=== PATIENT | female | born 1955 | race Caucasian/White ===

== ENCOUNTER → 2016-12-30 | Outpatient (REF) | payer OTHER ==
[~2016-12-30] MED LIST: ALBU17IN INH; ALEV220C2 PO; BENA25CA2 PO; FISH1000 PO; OCUVTAB PO; OMEP40CA2 PO; ZYRT10CA PO
[2016-12-30 11:42] LABS: BASO % 0.5 % (0.0-1.0); EOS # 0.2 K/mm3 (0.0-0.50); EOS % 2.7 % (0.0-3.0); LARGE UNSTAINED CELL # 0.2 K/mm3 (0.0-0.4); LARGE UNSTAINED CELL % 2.7 % (0.0-4.0); LYMPH # 2.2 K/mm3 (1.5-4.5); LYMPH % 32.7 % (24.0-44.0); MEAN CORPUSCULAR HEMOGLOBIN 28.2 pg (27.0-33.0); MEAN CORPUSCULAR HGB CONC 32.2 g/dl (32.0-36.5); MEAN CORPUSCULAR VOLUME 87.5 fl (80.0-96.0); MONO # 0.4 K/mm3 (0.0-0.8); MONO % 5.4 % (0.0-5.0); NEUTROPHILS # 3.8 K/mm3 (1.8-7.7); PLATELET COUNT, AUTOMATED 275 k/mm3 (150-450); RED CELL DISTRIBUTION WIDTH 14.2 % (11.5-14.5); WHITE BLOOD COUNT 6.8 K/mm3 (4.0-10.0)
[2016-12-30 12:25] LABS: ALBUMIN 3.7 GM/DL (3.2-5.2); ALBUMIN/GLOBULIN RATIO 1.16 (1.00-1.93); ALKALINE PHOSPHATASE 99 U/L (45-117); ALT/SGPT 38 U/L (12-78); ANION GAP 9 MEQ/L (8-16); AST/SGOT 30 U/L (15-37); BILIRUBIN,TOTAL 0.4 MG/DL (0.2-1.0); BLOOD UREA NITROGEN 19 MG/DL (7-18); CALCIUM LEVEL 9.1 MG/DL (8.5-10.1); CARBON DIOXIDE LEVEL 30 MEQ/L (21-32); CHLORIDE LEVEL 107 MEQ/L (98-107); CREATININE FOR GFR 0.68 MG/DL (0.55-1.02); GLOMERULAR FILTRATION RATE > 60.0 (>51); GLUCOSE, FASTING 98 MG/DL (70-105); POTASSIUM SERUM 4.4 MEQ/L (3.5-5.1); SODIUM LEVEL 146 MEQ/L (136-145); TOTAL PROTEIN 6.9 GM/DL (6.4-8.2)
== END ==
LOC: M SFHCPLAZ 08:38
PROVIDERS: ATTEND Family Medicine
DX: R53.83 Other fatigue (principal); R60.0 Localized edema; R06.02 Shortness of breath

== ENCOUNTER → 2017-01-31 | Outpatient (REF) | payer OTHER ==
[2017-01-31 16:07] LABS: MEAN CORPUSCULAR HEMOGLOBIN 29.2 pg (27.0-33.0); MEAN CORPUSCULAR HGB CONC 33.4 g/dl (32.0-36.5); MEAN CORPUSCULAR VOLUME 87.6 fl (80.0-96.0); WHITE BLOOD COUNT 7.5 K/mm3 (4.0-10.0)
[2017-01-31 16:08] LABS: RED CELL DISTRIBUTION WIDTH 13.7 % (11.5-14.5)
[2017-01-31 16:24] LABS: ERYTHROCYTE SEDIMENTATION RATE 20 mm/hr (0-30)
[2017-01-31 17:42] LABS: BASOPHILS 1 % (0-4); EOSINOPHILS 2 % (0-5)
== END ==
LOC: M LABDRAW1 15:23
PROVIDERS: ATTEND Physician Assistant
DX: M70.41 Prepatellar bursitis, right knee (principal)

== ENCOUNTER → 2017-03-01 | Outpatient (CLI) | payer OTHER ==
[2017-03-01 14:25] LABS: MICROSCOPIC INDICATED? MAN YES (NO)
[2017-03-01 14:28] LABS: BACTERIA, URINE MOD AMOUNT; HYALINE CAST, URINE NONE SEEN /lpf (0-1); MICROSCOPIC EXAM PERFORMED; SQUAMOUS EPITHELIAL CELL URINE SMALL AMOUNT /hpf (SMALL AMT); WBC, URINE 40-50 /hpf (0-3)
[2017-03-01 14:44] LABS: ALBUMIN 4.1 GM/DL (3.2-5.2); ANION GAP 7 MEQ/L (8-16); BLOOD UREA NITROGEN 19 MG/DL (7-18); CALCIUM LEVEL 8.9 MG/DL (8.5-10.1); CARBON DIOXIDE LEVEL 32 MEQ/L (21-32); CHLORIDE LEVEL 102 MEQ/L (98-107); CREATININE FOR GFR 0.67 MG/DL (0.55-1.02); FERRITIN 66 NG/ML (8-252); GLOMERULAR FILTRATION RATE > 60.0 (>51); GLUCOSE, FASTING 99 MG/DL (70-105); MAGNESIUM LEVEL 2.1 MG/DL (1.8-2.4); PHOSPHORUS LEVEL 2.9 MG/DL (2.5-4.9); POTASSIUM SERUM 4.4 MEQ/L (3.5-5.1); SODIUM LEVEL 141 MEQ/L (136-145)
--- NOTE | 2017-03-02 02:46 | REP ---
Clinical: Heart failure . Comparison: 11/07/2008 . Technique: PA and lateral. Findings: The mediastinum and cardiac silhouette are stable/normal. The lung euceda are clear and without acute consolidation, effusion, or pneumothorax. The skeletal structures are intact and normal. Impression: 1. No acute cardiopulmonary process. Signed by Franklyn Gaffney MD 03/02/2017 02:37 A
== END ==
LOC: M LAB 13:30
PROVIDERS: ATTEND Internal Medicine Cardiovascular Disease
DX: I50.9 Heart failure, unspecified (principal); R03.0 Elevated blood-pressure reading, without diagnosis of hypertension

== ENCOUNTER → 2017-04-07 | Outpatient (CLI) | payer OTHER | LOC: M SLEEP 19:58 | PROVIDERS: ATTEND Nurse Practitioner Adult Health | DX: G47.30 Sleep apnea, unspecified (principal) ==

== ENCOUNTER → 2017-08-03 | Outpatient (CLI) | payer OTHER ==
[~2017-08-03] MED LIST changes: +AUGM875T28 PO; +FURO40TA2 PO; +POTA20TA6 PO
--- NOTE | 2017-08-03 13:32 | REPMRS ---
Patient History The patient states she has not had a clinical breast exam in over a year. Patient is postmenopausal. Family history of breast cancer in sister under age 50, breast cancer in paternal aunt at age 50 or over, and breast cancer in 3 paternal cousins under age 50. Digital Woman Screen Mammo: August 03, 2017 - Exam #: [id number] Bilateral CC and MLO view(s) were taken. Technologist: Emma Streeter, Technologist Prior study comparison: February 27, 2015, digital woman screen mammo performed at [facility] [employer]. February 19, 2014, digital woman screen mammo performed at [facility] [employer] [facility]. FINDINGS: There are scattered fibroglandular densities. There has been no change in the appearance of the mammogram from the prior studies. There is a mild amount of residual fibroglandular tissue which is fairly symmetric. There is no interval development of dominant mass, architectural distortion, or clustered microcalcification suggestive of malignancy. ASSESSMENT: BI-RADS/ACR category 1 mammogram. Negative. Recommendation Routine screening mammogram in 1 year (for women over age 40). This mammogram was interpreted with the aid of an FDA-approved computer-aided dectection system. Electronically Signed By: Diego Joe MD 08/03/17 [id number]
== END ==
LOC: M WHC 11:30
PROVIDERS: ATTEND Family Medicine
DX: Z12.31 Encounter for screening mammogram for malignant neoplasm of breast (principal)

== ENCOUNTER 2017-08-05 09:34 | Emergency (ER) | payer OTHER ==
[~2017-08-05] VITALS: Ht 160 cm; Wt 155.4 kg
[~2017-08-05 09:34] MED LIST changes: -AUGM875T28 PO; -FURO40TA2 PO; -POTA20TA6 PO
[2017-08-05 09:35] VITALS: BP 142/62
[2017-08-05] MEDS ORDERED: AUGM875T28 PO (09:42)
[2017-08-05] MEDS ORDERED: POTA20TA6 PO (09:42)
[2017-08-05] MEDS ORDERED: FURO40TA2 PO (09:42)
== END 2017-08-05 10:20 | disposition home or self-care (01) ==
LOC: M ED 09:34
DX: L97.929 Non-pressure chronic ulcer of unspecified part of left lower leg with unspecified severity (principal); I87.2 Venous insufficiency (chronic) (peripheral); S80.812D Abrasion, left lower leg, subsequent encounter; W55.03XD Scratched by cat, subsequent encounter; Y92.9 Unspecified place or not applicable; Y93.9 Activity, unspecified; Y99.9 Unspecified external cause status; J45.909 Unspecified asthma, uncomplicated; Z79.899 Other long term (current) drug therapy; Z91.013 Allergy to seafood; Z88.1 Allergy status to other antibiotic agents

== ENCOUNTER → 2017-08-09 | Outpatient (REF) | payer OTHER ==
[~2017-08-09] MED LIST changes: +AUGM875T28 PO; +FURO40TA2 PO; +POTA20TA6 PO
[2017-08-09 16:03] LABS: ANION GAP 8 MEQ/L (8-16); BLOOD UREA NITROGEN 21 MG/DL (7-18); CALCIUM LEVEL 9.8 MG/DL (8.8-10.2); CARBON DIOXIDE LEVEL 33 MEQ/L (21-32); CHLORIDE LEVEL 98 MEQ/L (98-107); CREATININE FOR GFR 0.89 MG/DL (0.55-1.02); GLOMERULAR FILTRATION RATE > 60.0 (>45); GLUCOSE, FASTING 90 MG/DL (80-110); POTASSIUM SERUM 4.1 MEQ/L (3.5-5.1); SODIUM LEVEL 139 MEQ/L (136-145)
== END ==
LOC: M SFHCPLAZ 12:35
PROVIDERS: ATTEND Family Medicine
DX: M79.89 Other specified soft tissue disorders (principal)

== ENCOUNTER → 2017-08-18 | Outpatient (REF) | payer OTHER ==
[2017-08-18 13:39] LABS: ANION GAP 6 MEQ/L (8-16); BLOOD UREA NITROGEN 16 MG/DL (7-18); CALCIUM LEVEL 9.5 MG/DL (8.8-10.2); CARBON DIOXIDE LEVEL 33 MEQ/L (21-32); CHLORIDE LEVEL 104 MEQ/L (98-107); CREATININE FOR GFR 0.77 MG/DL (0.55-1.02); GLOMERULAR FILTRATION RATE > 60.0 (>45); GLUCOSE, FASTING 86 MG/DL (80-110); POTASSIUM SERUM 4.4 MEQ/L (3.5-5.1); SODIUM LEVEL 143 MEQ/L (136-145)
== END ==
LOC: M SFHCPLAZ 12:22
PROVIDERS: ATTEND Family Medicine
DX: M79.89 Other specified soft tissue disorders (principal)

== ENCOUNTER → 2017-08-24 | Outpatient (CLI) | payer OTHER ==
--- NOTE | 2017-08-25 06:09 | REP ---
Clinical: Right lower extremity venous insufficiency. Technique: Joe scale and color Doppler evaluation using linear high frequency transducer including reflux evaluation. Findings: Ultrasound examination of the right lower extremity deep venous structures from the common femoral vein to the popliteal vein demonstrates normal compressibility flow and wave patterns in response to respiration and augmentation. There is no evidence for deep venous thrombosis. Reflux study demonstrates no reflux through the deep venous system and no reflux through the superficial venous system including the greater saphenous and lesser saphenous veins. Impression: No evidence for deep venous thrombosis. No evidence for right lower extremity reflux involving the deep system, greater saphenous or lesser saphenous veins. Signed by Franklyn Gaffney MD 08/25/2017 06:01 A
== END ==
LOC: M RAD 13:43
PROVIDERS: ATTEND Family Medicine
DX: L97.921 Non-pressure chronic ulcer of unspecified part of left lower leg limited to breakdown of skin (principal); M79.89 Other specified soft tissue disorders

== ENCOUNTER → 2017-08-25 | Outpatient (CLI) | payer OTHER ==
--- NOTE | 2017-08-25 11:28 | REP ---
LEFT LOWER EXTREMITY DUPLEX DOPPLER VENOUS ULTRASOUND WITH EVALUATION FOR VENOUS REFLUX: Real-time compression and duplex Doppler interrogation of the left lower extremity deep venous system is performed. Left common femoral, superficial femoral, and popliteal veins are fully compressible with transducer pressure and demonstrate normal spontaneous and phasic flow without evidence of deep venous thrombosis. Evaluation for venous reflux demonstrates no reflux in any of the deep veins. There is an anterior accessory greater saphenous vein present without reflux. There is no reflux in any portion of the greater saphenous vein, with a diameter in the proximal thigh 6 mm, mid thigh 4 mm and at the knee 4 mm. There is no reflux in the less saphenous vein which measures 3 mm. Less saphenous vein drains into the deep system in the posterior thigh. Signed by Diego Joe MD 08/28/2017 09:48 A
== END ==
LOC: M RAD 09:14
PROVIDERS: ATTEND Family Medicine
DX: L97.921 Non-pressure chronic ulcer of unspecified part of left lower leg limited to breakdown of skin (principal); M79.89 Other specified soft tissue disorders

== ENCOUNTER → 2018-06-22 | Outpatient (REF) | payer OTHER ==
[2018-06-22 11:41] LABS: ALBUMIN 3.5 GM/DL (3.2-5.2); ALBUMIN/GLOBULIN RATIO 0.88 (1.00-1.93); ALKALINE PHOSPHATASE 89 U/L (45-117); ALT/SGPT 31 U/L (12-78); ANION GAP 7 MEQ/L (8-16); AST/SGOT 19 U/L (7-37); BILIRUBIN,TOTAL 0.4 MG/DL (0.2-1.0); BLOOD UREA NITROGEN 21 MG/DL (7-18); CALCIUM LEVEL 9.2 MG/DL (8.8-10.2); CARBON DIOXIDE LEVEL 28 MEQ/L (21-32); CHLORIDE LEVEL 108 MEQ/L (98-107); CREATININE FOR GFR 0.89 MG/DL (0.55-1.30); GLOMERULAR FILTRATION RATE > 60.0 (>45); GLUCOSE, FASTING 123 MG/DL (70-100); POTASSIUM SERUM 4.1 MEQ/L (3.5-5.1); SODIUM LEVEL 143 MEQ/L (136-145); TOTAL PROTEIN 7.5 GM/DL (6.4-8.2)
== END ==
LOC: M SFHCPLAZ 10:02
DX: L97.921 Non-pressure chronic ulcer of unspecified part of left lower leg limited to breakdown of skin (principal)

== ENCOUNTER → 2018-08-06 | Outpatient (REF) | payer OTHER | LOC: M LAB REF 19:26 | DX: L57.0 Actinic keratosis (principal) ==

== ENCOUNTER → 2018-08-31 | Outpatient (CLI) | payer OTHER ==
[2018-08-31 14:03] LABS: ESTIMATED AVERAGE GLUCOSE 140 MG/DL (60-110); HEMOGLOBIN A1c 6.5 %
[2018-08-31 15:24] LABS: CHOLESTEROL LEVEL 163 MG/DL (<200); CHOLESTEROL RISK RATIO 4.289 (<5); HDL CHOLESTEROL 38 MG/DL (>40); LDL CHOLESTEROL 111 MG/DL (<100); NON-HDL-C 125 MG/DL; TRIGLYCERIDES LEVEL 72 MG/DL (<150)
== END ==
LOC: M ADAMS 08:00
DX: Z13.1 Encounter for screening for diabetes mellitus (principal); Z13.220 Encounter for screening for lipoid disorders
CPT/HCPCS: 83036

== ENCOUNTER → 2018-09-05 | Outpatient (REF) | payer OTHER ==
[2018-09-05 14:38] LABS: ALBUMIN 3.6 GM/DL (3.2-5.2); ALBUMIN/GLOBULIN RATIO 0.97 (1.00-1.93); ALKALINE PHOSPHATASE 110 U/L (45-117); ALT/SGPT 30 U/L (12-78); ANION GAP 6 MEQ/L (8-16); AST/SGOT 24 U/L (7-37); BILIRUBIN,TOTAL 0.4 MG/DL (0.2-1.0); BLOOD UREA NITROGEN 19 MG/DL (7-18); CALCIUM LEVEL 8.8 MG/DL (8.8-10.2); CARBON DIOXIDE LEVEL 33 MEQ/L (21-32); CHLORIDE LEVEL 102 MEQ/L (98-107); CREATININE FOR GFR 0.77 MG/DL (0.55-1.30); GLOMERULAR FILTRATION RATE > 60.0 (>45); GLUCOSE, FASTING 86 MG/DL (70-100); POTASSIUM SERUM 4.5 MEQ/L (3.5-5.1); SODIUM LEVEL 141 MEQ/L (136-145); TOTAL PROTEIN 7.3 GM/DL (6.4-8.2)
== END ==
LOC: M SFHCPLAZ 11:03
DX: Z01.818 Encounter for other preprocedural examination (principal)
CPT/HCPCS: 80053

== ENCOUNTER 2019-01-21 12:41 | Inpatient (IN) | payer OTHER ==
--- NOTE | 2019-01-16 15:30 | HPE ---
DATE OF ADMISSION: 01/21/2019 CHIEF COMPLAINT: Left knee pain. HISTORY OF PRESENT ILLNESS: This is a pleasant, 63-year-old female with progressively worsening left knee pain and stiffness. She has failed to improve with conservative treatment. She has elected for surgery for her continued symptoms. She has pain with weightbearing activities and her activities of daily living. X-rays of her knee are notable for advanced osteoarthritis of the left knee joint. She has consented for a left total knee arthroplasty, by Dr. Logan Sotomayor. Medical optimization was done by Dr. Garcia. ALLERGIES: DOXYCYCLINE. CURRENT MEDICATIONS: - naproxen 500 mg one twice a day - Tylenol 500 mg two every 8 hours - Sulfur topical wash in the a.m. - metronidazole cream in the p.m. - Cetaphil redness face wash twice a day PAST MEDICAL HISTORY: Includes anxiety and acne rosacea. PAST SURGICAL HISTORY: Includes three (C) sections, tonsillectomy, tubal ligation, and carpal tunnel release. SOCIAL HISTORY: This patient is retired. Does not smoke. Does not drink. Family history is noncontributory. REVIEW OF SYSTEMS: This patient denies chest pain, heart palpitations, cough, wheezing, difficulty breathing and shortness of breath. She denies abdominal pain, nausea, vomiting, diarrhea or constipation. She denies recent upper respiratory infection or urinary tract infection symptoms. She does complain of persistent pain in the left knee and pain with weightbearing activities in her left knee. PHYSICAL EXAMINATION: General: She is well-nourished, well-developed, in no acute distress, alert female, who walks with a moderate limp favoring the left lower extremity and uses a single-leg cane. Vital signs: She is 63 inches tall, weighs 240 pounds with a temperature of 97.3, blood pressure 130/52, pulse of 64 and respirations of 18. Neck was supple without adenopathy or jugular venous distension. There were no carotid bruits appreciated upon auscultation. Lungs were clear to auscultation without rales or wheeze throughout. Heart: Regular rate and rhythm. Abdomen: Bowel sounds were present. Extremities: Examination of the knee revealed intact skin. She had decreased range of motion secondary to pain and stiffness. The limbs did display intact sensation to light touch. She does have chronic venous stasis changes. No active wounds. LABORATORY DATA: EKG showed sinus rhythm at 65 beats per minute. Chest x-ray showed no acute cardiopulmonary disease processes. Glucose 90, BUN 17, creatinine 0.7, sodium 140, potassium 4.3. CBC was within normal limits. Sed rate 34. ProTime 14.2, INR 1.09. IMPRESSION: Symptomatic osteoarthritis of the left knee joint. PLAN: Consented for a left total knee arthroplasty by Dr. Logan Sotomayor.
[~2019-01-21] VITALS: Ht 160 cm; Wt 126.6 kg
[~2019-01-21 12:41] MED LIST changes: +BUPIVACAINE LIPOSOME/PF 1.3% 20ML VIAL (13.3MG/ML)(EXPAREL)(C9290 PER1MG) As Ordered ONE; +EPINEPHrine INJ 1 MG/ML 1ML AMP As Ordered ONE; +OMEP20CA3 PO; +TRANEXAMIC ACID 100 MG/ML 10ML VIAL As Ordered ONE; +VENTAER IN; +ceFAZolin 1GM INJ (J0690 PER 500MG) As Ordered ONE
[2019-01-21] MEDS ORDERED: MIDAZOLAM INJ 2 MG/2 ML VIAL (J2250) As Ordered ONE ×2 (13:44→14:08)
[2019-01-21] MEDS ORDERED: PROPOFOL 200 MG/20 ML VIAL As Ordered ONE (13:44)
[2019-01-21] MEDS ORDERED: ONDANSETRON 4MG/2ML VIAL (J2405) As Ordered ONE (13:44)
[2019-01-21] MEDS ORDERED: LIDOCAINE 2% INJ 100 MG/5 ML SDV (FOR ANES.) As Ordered ONE (13:44)
[2019-01-21] MEDS ORDERED: fentaNYL 100 MCG/2 ML INJECTION (J3010) As Ordered ONE ×2 (13:44→14:08)
[2019-01-21] MEDS ORDERED: ceFAZolin 2 GM/D5W 50 ML IV BAG (J0690 PER 500MG) As Ordered ONE (13:58)
[2019-01-21] MEDS ORDERED: ceFAZolin 1GM INJ (J0690 PER 500MG) As Ordered ONE (13:58)
[2019-01-21] MEDS ORDERED: ceFAZolin SOD 1 GM in D5W MINI-BAG PLUS 50 ML IV ONE (14:15)
[2019-01-21] MEDS ORDERED: LR 1,000 ML IV SCH ×3 (14:15→17:30)
[2019-01-21] MEDS ORDERED: PREGABALIN 100 MG CAP (LYRICA) PO ONE (14:30)
[2019-01-21] MEDS ORDERED: PREGABALIN 75 MG CAP(LYRICA) PO ONE (14:30)
[2019-01-21] MEDS ORDERED: ACETAMINOPHEN 500 MG TAB PO ONE (14:30)
[2019-01-21] MEDS ORDERED: CelecoXIB 400 MG CAP PO ONE (14:30)
--- NOTE | 2019-01-21 15:08 | IPN ---
DATE: 01/21/2019 Patient seen and examined. She wished to go ahead with a left knee arthroplasty. She understands the nature of this, the risks of bleeding, infection, damage to nerves, vessels, persistent pain, wear loosening, blood clots, medical problems, , among others. She understands she is at substantially higher risk with her morbid obesity. She also has some chronic venous stasis changes involving her shins, which she has been treated at the wound center and has been given go ahead for surgery she indicates. She does have some chronic redness of her shins. There is no current evidence of any drainage or active infection. This has been present for many years. We plan on proceeding with a left knee arthroplasty. Preop clearance was obtained.
[2019-01-21] MEDS ORDERED: MIDAZOLAM INJ 2 MG/2 ML VIAL (J2250) IV ONE (15:15)
[2019-01-21] MEDS ORDERED: fentaNYL 100 MCG/2 ML INJECTION (J3010) IV ONE (15:15)
[2019-01-21] MEDS ORDERED: BUPIVACAINE/DEXTROSE 0.75% 2 ML AMP As Ordered ONE (15:21)
[2019-01-21] MEDS ORDERED: EPINEPHrine INJ 1 MG/ML 1ML AMP ONE (15:36)
[2019-01-21] MEDS ORDERED: ROPIvacaine 0.5% 30 ML INJECTION (J2795 PER 1MG) ONE (15:36)
[2019-01-21] MEDS ORDERED: dexameTHASONE 10 MG/1 ML VIAL PRES.FREE (J1100) ONE (15:36)
[2019-01-21] MEDS ORDERED: ePHEDrine SULFATE 25 MG/5 ML(5MG/ML) SYRINGE As Ordered ONE ×2 (15:44→16:35)
[2019-01-21] MEDS ORDERED: FLEET ENEMA PR PRN (17:30)
[2019-01-21] MEDS ORDERED: ACETAMINOPHEN TAB 650MG DOSE (2X325MG) PO PRN (17:30)
[2019-01-21] MEDS ORDERED: fentaNYL 100 MCG/2 ML INJECTION (J3010) IV PRN (17:30)
[2019-01-21] MEDS ORDERED: ONDANSETRON 4MG/2ML VIAL (J2405) IV PRN ×2 (17:30)
[2019-01-21] MEDS ORDERED: MORPHINE 4 MG/ML 1ML VIAL/SYRINGE (J2270) IV PRN ×2 (17:30)
[2019-01-21] MEDS ORDERED: PERCOCET 5MG/325MG TAB PO PRN (17:30)
[2019-01-21 18:45] VITALS: BP 140/80
[2019-01-21 19:20] VITALS: BP 140/67
--- NOTE | 2019-01-21 19:31 | REP ---
Left knee: Two views. History: Postop evaluation. Comparison left knee radiographs are from January 17, 2016. Findings: The patient is status post left knee arthroplasty. Femoral, tibial, and patellar components are well aligned with respect to each other and their [place] bones. Periarticular soft tissue emphysema and swelling is noted. Anterior skin elsa are visible. Impression: Status post left knee arthroplasty. Electronically Signed by Chase Lainez MD 01/21/2019 08:58 P
--- NOTE | 2019-01-21 19:37 | CR ---
DATE OF CONSULTATION: 01/21/2019 This is a 63-year-old female who presents to the hospital for a left total knee replacement. She has a past medical history of left osteoarthritis, history of anxiety disorder and acne rosacea. REASON FOR MEDICAL CONSULTATION: Postoperative medical management. The patient had a successful left total knee replacement today. She is pain free at this time. Denies any chest pain, shortness of breath, abdominal pain, nausea, vomiting, vertigo or headache. PAST MEDICAL HISTORY: 1. Anxiety disorder. 2. Acne rosacea. 3. Morbid obesity. PAST SURGICAL HISTORY: 1. Three sections. 2. Tonsillectomy. 3. Tubal ligation. 4. Carpal tunnel release. ALLERGIES: AMOXICILLIN. FAMILY HISTORY: Noncontributory. SOCIAL HISTORY: The patient denies tobacco, alcohol or illicit drugs. MEDICATIONS: She takes at home: - albuterol as needed - Aleve 220 mg by mouth as needed - cetirizine 10 mg by mouth daily - omeprazole 40 mg by mouth daily REVIEW OF SYSTEMS: Negative for all ten major systems except what is mentioned in the history of present illness. PHYSICAL EXAMINATION: VITAL SIGNS: Blood pressure 140/80, heart rate is 70 and regular, respiratory rate 20, temperature 97.1, oxygen saturation 94% on 2 liters nasal cannula. Head is atraumatic, normocephalic. Neck is supple with no jugular venous distention (JVD). Lungs clear to auscultation. S1, S2 audible. No murmurs appreciated. Abdomen is soft. Positive bowel sounds. No pedal edema. Skin: Clean surgical wound. Neurologic examination, the patient is awake, alert and oriented times three. LABORATORIES: No labs for review. IMPRESSION: 1. Left total knee replacement. 2. Gastroesophageal reflux disease (GERD). 3. Anxiety disorder. PLAN: At this time, the patient is medically stable. Apparently, she has became mildly hypoxic and is on 1 liter nasal cannula and saturating 92%. She is comfortable. She might possibly have element of obstructive sleep apnea. Recommend to wean her off oxygen if possible. We will continue following alongside orthopedics.
[2019-01-21 19:45] VITALS: BP 158/74
[2019-01-21 21:00] VITALS: BP 128/62
[2019-01-21] MEDS: ACETAMINOPHEN 500 MG TAB PO SCH (21:32)
[2019-01-21 22:00] VITALS: BP 146/69
[2019-01-21 23:00] VITALS: BP 157/74
[2019-01-22] VITALS (17 sets, daily range): BP systolic 88–145; BP diastolic 46–78
[2019-01-22] MEDS: ceFAZolin SOD 1 GM in D5W MINI-BAG PLUS 50 ML IV SCH ×2 (01:07→11:20)
[2019-01-22] MEDS: ACETAMINOPHEN 500 MG TAB PO SCH (06:00)
[2019-01-22] MEDS ORDERED: PERCOCET 5MG/325MG TAB PO PRN (06:15)
[2019-01-22] MEDS ORDERED: ONDANSETRON 4 MG TAB (S0181) PO PRN (06:15)
[2019-01-22] MEDS ORDERED: XARE10TA PO (06:17)
[2019-01-22] MEDS ORDERED: PERC5TAB12 PO (06:17)
[2019-01-22] MEDS ORDERED: NALOXONE INJ 0.4 MG/1 ML VIAL (J2310) As Ordered ONE ×2 (07:19→07:22)
[2019-01-22] MEDS ORDERED: ETOMIDATE INJ 20MG/10ML VIAL As Ordered ONE ×2 (07:23→07:44)
[2019-01-22] MEDS ORDERED: NALOXONE INJ 0.4 MG/1 ML VIAL (J2310) IV STA ×2 (07:25→07:26)
[2019-01-22] MEDS ORDERED: MIDAZOLAM INJ 2 MG/2 ML VIAL (J2250) As Ordered ONE ×3 (07:33→08:23)
--- NOTE | 2019-01-22 07:34 | IPNPDOC ---
Text Note Date of Service The patient was seen on 01/22/19. NOTE I was called to the bedside to evaluate the patient around 5:30 AM by nursing staff. Patient had been on obstructive sleep apnea protocol throughout the night. Patient has history of obstructive sleep apnea has been diagnosed on numerous sleep studies. Patient has been nonadherent to her CPAP machine while at home. Patient did not want to wear CPAP machine overnight according to nursing and respiratory. Throughout the night repositioning and the addition of nasal cannula oxygen was able to continue to maintain the patient's saturation. Slightly before I went to evaluate the patient at 5:30 AM, respiratory was called to the patient due to a desaturation episode. A nonrebreather mask was placed on the patient. I went in with nursing staff to evaluate the patient. I was able to arouse the patient and keep her awake for a few seconds. Patient would make eye contact before going back off to sleep. Patient's O2 saturation maintained above 95% for the duration. I spoke with the nurse and the respiratory therapist. I said that it would be best if patient would be on CPAP however, since she had been refusing throughout the night a nonrebreather was placed on the patient. Objective: Vitals: (see below) General: Patient was asleep with a nonrebreather on. Patient would wake up to verbal stimulus. HEENT: Normocephalic, atraumatic, moist mucous membranes. Cardiac: RRR, No murmurs Pulm: Clear to auscultation b/l. No wheezing, rhonchi Assessment/Plan Patient is a 63-year-old female who was postop from right total knee ar throplasty. Patient was in the progressive care unit due to patient's history of ulcerative sleep apnea with nonadherence to home CPAP. Patient had a few events of desaturation on continuous pulse ox monitoring. Repositioning and supplemental oxygen therapy had been added and was able to maintain patient's oxygen saturations greater than 95%. Patient was able to be woken up by my e valuation however, she would soon go back to sleep. At this time it was deemed that although CPAP would be the best option for the patient, as long she was able to maintain her oxygen saturations greater than 95% and was able to be woken up, a nonrebreather would be sufficient with close monitoring of the patient. VS,Fishbone, I+O VS, Fishbone, I+O Vital Signs Date Time Temp Pulse Resp B/P (MAP) Pulse Ox O2 Delivery O2 Flow Rate FiO2 01/22/19 06:00 94 94 Non-Rebreather 15.0 01/22/19 04:00 97.3 20 145/78 (100) I&O- Last 24 Hours up to 6 AM 01/22/19 05:59 Intake Total 1800 ml Output Total 850 ml Balance 950 ml GME ATTESTATION GME ATTESTATION My faculty preceptor for this patient encounter was physically present during the encounter and was fully available. All aspects of the patient interview, examination, medical decision making process, and medical care plan development were reviewed and approved by the faculty preceptor. The faculty preceptor is aware and concurs with the plan as stated in the body of this note and will attest to such by his/her cosignature. ALIN HULL DO Jan 22, 2019 07:34
[2019-01-22 07:37] LABS: ABG BASE EXCESS 2.1 (-2.0-2.0); ABG HCO3 38.8 MEQ/L (22.0-26.0); ABG O2 SATURATION 85.6 % (95.0-99.0); ABG PARTIAL PRESSURE O2 64.3 mmHg (75.0-100.0); ABG TOTAL CO2 43.9 MEQ/L (23.0-31.0)
[2019-01-22 07:40] LABS: BASO % 0.1 % (0.0-1.0); HEMATOCRIT 42.9 % (36.0-47.0); HEMOGLOBIN 13.1 g/dl (12.0-15.5); LYMPH # 0.8 10^3/uL (1.5-4.5); LYMPH % 4.4 % (24.0-44.0); MEAN CORPUSCULAR HEMOGLOBIN 28.1 pg (27.0-33.0); MEAN CORPUSCULAR HGB CONC 30.5 g/dl (32.0-36.5); MEAN CORPUSCULAR VOLUME 92.1 fl (80.0-96.0); MONO # 1.2 10^3/uL (0.0-0.8); MONO % 6.8 % (0.0-5.0); NEUTROPHILS # 15.8 10^3/uL (1.8-7.7); NEUTROPHILS % 87.9 % (36.0-66.0); PLATELET COUNT, AUTOMATED 342 10^3/uL (150-450); RED BLOOD COUNT 4.66 10^6/uL (4.00-5.40)
[2019-01-22 07:41] LABS: ABG PARTIAL PRESSURE CO2 165.6 mmHg (35.0-45.0); ABG pH (ARTERIAL) 6.988 UNITS (7.350-7.450)
[2019-01-22 07:51] LABS: INR 1.11; PROTHROMBIN TIME 14.4 SECONDS (12.1-14.4)
[2019-01-22 07:52] LABS: PARTIAL THROMBOPLASTIN TIME 20.5 SECONDS (25.4-37.6)
--- NOTE | 2019-01-22 08:16 | REP ---
Clinical: Status post intubation. Comparison: 10/25/2018. Findings: Endotracheal tube 3 cm above the jefferson. Nasogastric tube courses below left hemidiaphragm. Mediastinum and cardiac silhouette are within normal limits. Left upper lobe consolidation consistent with acute pneumonia. No obvious effusion. No pneumothorax. Skeletal structures intact. Impression: 1. Lines and tubes in satisfactory position. 2. Left upper lobe consolidation consistent with pneumonia. Electronically Signed by Franklyn Gaffney MD 01/22/2019 08:07 A
--- NOTE | 2019-01-22 08:19 | REP ---
Clinical: Status post intubation. Comparison: 01/22/2019 at 07:43 a.m. Findings: Endotracheal tube and nasogastric tube in satisfactory position. Mediastinum and cardiac silhouette normal. Left upper lobe opacity similar to prior examination and consistent with acute infiltrate. No effusion. No pneumothorax. Skeletal structures intact. Impression: 1. Endotracheal tube and nasogastric tube in satisfactory position. 2. Continued left upper lobe infiltrate. Electronically Signed by Franklyn Gaffney MD 01/22/2019 08:10 A
[2019-01-22] MEDS ORDERED: PROPOFOL 1,000 MG/100 ML VIAL As Ordered ONE (08:22)
[2019-01-22 08:28] LABS: ALBUMIN 3.3 GM/DL (3.2-5.2); BILIRUBIN,TOTAL 0.2 MG/DL (0.2-1.0); CALCIUM LEVEL 8.2 MG/DL (8.8-10.2); CREATININE FOR GFR 1.1 MG/DL (0.55-1.30); GLOMERULAR FILTRATION RATE 53.8 (>45); MB/CK RELATIVE INDEX 1.42 (< OR =4); POTASSIUM SERUM 6.9 MEQ/L (3.5-5.1); TOTAL PROTEIN 7.3 GM/DL (6.4-8.2); TROPONIN I 0.02 NG/ML (< 0.10)
[2019-01-22] MEDS ORDERED: PROPOFOL 1,000 MG in APPROPRIATE DILUENT 1 EA IV SCH (08:30)
[2019-01-22] MEDS ORDERED: fentaNYL 100 MCG/2 ML INJECTION (J3010) IV PRN (08:30)
[2019-01-22] MEDS ORDERED: MIDAZOLAM INJ 2 MG/2 ML VIAL (J2250) IV PRN (08:30)
--- NOTE | 2019-01-22 08:32 | RO ---
DATE OF PROCEDURE: 01/06/2018 PREOPERATIVE DIAGNOSIS: Left knee osteoarthritis advanced POSTOPERATIVE DIAGNOSIS: Left knee osteoarthritis advanced. PROCEDURE: Left total knee arthroplasty using Attune rotating platform cruciate retaining size 4, femur size 3, tibial tray 8, polyethylene 35 patellar button. SURGEON: Dr. Logan Sotomayor FITNESS MANAGEMENT DIRECTOR: Jeremias Downing ANESTHESIA: Spinal. ESTIMATED BLOOD LOSS: 100 COMPLICATIONS: None. INDICATIONS: This is a 63-year-old morbidly obese woman with a BMI of around 43 who has significant medical problems including sleep apnea and chronic venous stasis changes in her shins has been treated by the wound clinic Dr. Thomas. She has had no active drainage and no fevers to indicate any cellulitis. She indicated that her skin over her shins this is clear as it gets for her. She wished to go ahead with the knee replacement. She understood that she was at significant increased risk of having a complication due to her obesity. Her skin venous stasis changes, her sleep apnea and her inability to wear a C-PAP machine due to claustrophobia all of these things increase her risk of perioperative complications including DVT, infection, pulmonary issues, etc. and she is well aware of this but was unable to tolerate the pain anymore in the knee. PROCEDURE: The patient was taken to the operating room and placed in supine position after spinal anesthesia was induced. The left lower extremity was prepped and draped in usual sterile fashion. A time-out was performed, a tourniquet was inflated and a longitudinal incision was made over the anterior aspect of the knee, sharp dissection was carried down through subcutaneous tissue. I controlled hemostasis with a cautery. She did tend to bleed a little bit more than average. I then performed a medial parapatellar arthrotomy. And everted the patella flexed the knee up removed some large osteophytes from around the femur. She has severe arthritis particularly involving the medial compartment. Then used the canal initiating reamer on the femoral side followed by the intramedullary alignment guide set at 5 degrees of valgus and 9 mm cut. I did not feel we used taking extra off the femur because she did not have a significant flexion contracture. This was pinned in place by the housing assistant property manager. The distal femoral cut was made while I protected soft tissues. I then attempted to size the femur which is what we are usually are able to do at this stage but due to her advanced arthritis and her obesity I was not able to get the sizing guide on the femur so I proceeded to do the tibial cut removing about 2 mm of bone from the medial side, protecting soft tissues. I had placed the alignment guide in the appropriate amount of valgus and posterior slope injected with external alignment guide prior to making the cut. Once I did this I could sized the femur and it was sized to be a four. The drill holes were placed in the end of the femur with the external rotation dialed in and the remaining bone was removed. I also placed the sulcus guide and I made the sulcus cut. I then used a shipper/receiver to remove soft tissue and osteophytes from either side of the knee including meniscus. It seemed overall very similar and well balanced. I then used the trial spacer blocks in flexion/extension and decided on a size eight was most likely to be appropriate fit for the polyethylene. We then further prepared the tibia with the size three tray which was secured in place, drilled broached and the trial components were placed and again it was relatively difficult getting the femoral component seated due to her significant obesity and trying to manage lifting up on the thigh etc. I got the trial components in and they fit very well and the soft tissue balance was really quite good in flexion and extension. I was satisfied with a size 8 polyethylene rotating platform. I then freehand cut the patella removing about 7 mm of bone sized to be a 35. The drill holes were placed in the patella tracked quite nicely. I then made the drill holes in the end of the femur and the housing assistant property manager prepared the bone cement modern technique on the back table. I irrigated the bony surfaces dried them very carefully and then cemented on the tibial component impacted in place removed excess bone cement. I had also injected the Exparel in the deep tissues prior to this step. I placed the polyethylene, cemented on the femur, removed excess bone cement made sure all the components were well seated, cemented on the patella, held it in place with a clamp then placed the TXA solution in the knee. She did tend to bleed a little bit more than average I think it is because of the size of her thigh and the tourniquet being less effective as a result despite increasing the tourniquet pressure. I also used cautery to control any further bleeders and once the cement hardened I irrigated copiously as I had done multiple times prior to this and closed the deep layer with interrupted #1 Vicryl suture followed by running Stratafix suture starting proximally working my way distally. A watertight closure was obtained. Again put the knee through range of motion. The patella tracked well. There was no clicking or catching in the alignment and stability were excellent. Irrigated, closed subcu 2-0 Vicryl, skin with elsa that this tourniquet was deflated and sterile dressing was applied. She was taken to recovery room in stable condition there were no known complications. The plan will be routine postop. However, during the procedure. She tended to desaturate and would not tolerate I mask over her face due to claustrophobia issues, so I think it is going to be safer her for the moderate more carefully perhaps in the PCU and we will advise that to the hospitalists will be cold call managing. The housing assistant property manager was instrumental in holding retractors and making with the distal femoral cuts and assisting in mixing the cement in wound closure. This is coded as unusually difficult procedure due to the patient's BMI of 43. She had a very large leg and made this much more difficult much more technically challenging improved in terms of putting the trial components and actual components in. In addition knee she tended to bleed more because the tourniquet was less effective. Wound closure was more difficulty and she is well aware that her risk of complication is substantially higher than the average patient and I talked to her about this on different occasions.
[2019-01-22] MEDS ORDERED: ETOMIDATE INJ 20MG/10ML VIAL IV STA (08:41)
[2019-01-22] MEDS ORDERED: SODIUM CHLORIDE 0.9% 1000ML IV ONE (08:45)
[2019-01-22] MEDS ORDERED: MIDAZOLAM INJ 5 MG/ML VIAL (J2250) IM ONE ×2 (08:45)
[2019-01-22] MEDS ORDERED: MIDAZOLAM INJ 2 MG/2 ML VIAL (J2250) IV ONE (08:45)
[2019-01-22] MEDS ORDERED: D5W/0.9% SODIUM CHLORIDE 1,000 ML IV SCH (08:45)
[2019-01-22] MEDS ORDERED: MIDAZOLAM INJ 5 MG/ML VIAL (J2250) IV STA (08:48)
[2019-01-22] MEDS ORDERED: CHLORHEXIDINE GLUCONATE 0.12 % 15ML UDC (PERIDEX ORAL RINSE) MT SCH (09:00)
[2019-01-22] MEDS ORDERED: MOM 30ML SUSPENSION UDC PO SCH (09:00)
[2019-01-22] MEDS ORDERED: MIRALAX *UNIT DOSE* 17GM PACKET PO SCH (09:00)
[2019-01-22] MEDS ORDERED: PATIROMER SORBITEX CALCIUM 8.4 GM POWDER PACKET (VELTASSA) PO ONE (09:30)
[2019-01-22] MEDS: RIVAROXABAN 10 MG TAB (XARELTO) PO SCH (09:51)
[2019-01-22] MEDS: PANTOPRAZOLE 40MG INJ (PROTONIX) (C9113) IV SCH (09:51)
[2019-01-22] MEDS ORDERED: VANCOMYCIN HCL 1,000 MG, VIAL MATE ADAPTER 1 EACH in D5W 250 ML IV ONE ×2 (10:00→16:00)
[2019-01-22] MEDS ORDERED: PIPERACILLIN/TAZOBACTAM SOD 3.375 GM in D5W MINI-BAG PLUS 50 ML IV SCH (10:00)
[2019-01-22 10:07] LABS: ABG HCO3 29.1 MEQ/L (22.0-26.0); ABG O2 SATURATION 97.8 % (95.0-99.0); ABG PARTIAL PRESSURE CO2 57.2 mmHg (35.0-45.0); ABG PARTIAL PRESSURE O2 94.6 mmHg (75.0-100.0); ABG STANDARD HCO3 26.3 MEQ/L (22.0-26.0); ABG TOTAL CO2 30.9 MEQ/L (23.0-31.0); ABG pH (ARTERIAL) 7.325 UNITS (7.350-7.450)
[2019-01-22 12:53] LABS: ABG BASE EXCESS 5.1 (-2.0-2.0); ABG HCO3 31.7 MEQ/L (22.0-26.0); ABG PARTIAL PRESSURE O2 98.6 mmHg (75.0-100.0); ABG STANDARD HCO3 29.1 MEQ/L (22.0-26.0); ABG TOTAL CO2 33.4 MEQ/L (23.0-31.0); ABG pH (ARTERIAL) 7.371 UNITS (7.350-7.450)
[2019-01-22 13:38] LABS: CALCIUM LEVEL 8.4 MG/DL (8.8-10.2); CREATININE FOR GFR 1.09 MG/DL (0.55-1.30); GLOMERULAR FILTRATION RATE 54.3 (>45); MB/CK RELATIVE INDEX 1.43 (< OR =4); POTASSIUM SERUM 5.4 MEQ/L (3.5-5.1)
--- NOTE | 2019-01-22 13:40 | CR ---
DATE OF CONSULTATION: 01/22/2019 NOTE: Asked by Dr. Carty to emergently evaluate Ms. Bose for acute hypoxemic and hypercapnic respiratory failure leading to mechanical ventilation. Ms. Bose is a 63-year-old white female with known severe obstructive sleep apnea associated with significant desaturations (low 70s), which is untreated secondary to claustrophobia, who was admitted yesterday after having a left total knee replacement. She was admitted to the progressive care unit (PCU) per the obstructive sleep apnea protocol, but there was no CO2 monitoring available. Apparently, through the course of the night, she had worsened saturations, and her FIO2 kept being increased. This morning, she was unresponsive, and a rapid response team was called. She did have a pulse and pressure but was unresponsive and was intubated. Arterial blood gas at that time was 6.9 with a PCO2 of 166. She had experienced emesis during intubation, and food particles were suctioned from her. Her immediate post intubation chest x-ray showed a new left upper lobe infiltrate. I believe she was in Trendelenburg during part of this time, as she was hypotensive, which responded to a liter of normal saline. Initially, she was unresponsive. Eventually, she became more responsive and now is fully awake and following commands. Vent manipulations were made at bedside initially. She is now on a pressure support of 5/5 and able to increase her spontaneous tidal volume to 900 and has a rapid shallow breathing index in the 40s. She indicates no discomfort. In reviewing her medications postoperatively, she received Percocet one tablet at 6 o'clock this morning. She received Percocet two tablets at 2130 last p.m. OBJECTIVE: PHYSICAL EXAMINATION: GENERAL: Ms. Bose is intubated and synchronous with the vent. VITAL SIGNS: Temperature 97.4 with a maximum temperature (Tmax) of 98.4, pulse 73, respiratory rate 18, blood pressure 106/51 with a mean arterial pressure (MAP) of 69, SpO2 98% on FIO2 of 0.4. HEENT: Anicteric. Nares: Patent bilaterally. Normal mucosa. Oropharynx: Endotracheal (ET) tube and orogastric (OG) tube in place. Teeth appear intact. Tongue is moist mucosa and is of normal size. NECK: Trachea is midline without jugular venous distention (JVD), though examination very difficult due to body habitus. LYMPHATICS: Without cervical or supraclavicular lymphadenopathy. LUNGS: Symmetric excursion, good air entry. No wheeze, crackle, or significant rhonchi. Normal I:E. No accessory muscle usage or retractions. CARDIOVASCULAR: Regular rate and rhythm with a normal S1, S2. No murmur, rub, or gallop appreciated. ABDOMEN: Positive bowel sounds, obese, nondistended, does not appear tender, soft. EXTREMITIES: Without clubbing, cyanosis, or significant edema. The left knee is wrapped. Palpable pedal pulses bilaterally. ALLERGIES: CLAM, DOXYCYCLINE, MILK-RELATE COMPOUNDS, I do not know what happens with these agents. MEDICATIONS: On admission: - Ventolin HFA two puffs every 4 hours as needed - Zyrtec 10 mg by mouth daily - omeprazole 40 mg by mouth daily - Xarelto 10 mg by mouth daily PAST MEDICAL HISTORY: 1. Anxiety. 2. Acne rosacea. 3. Status post tonsillectomy. 4. Status post tubal ligation. 5. Status post carpal tunnel release. 6. Gastroesophageal reflux disease (GERD). 7. Obstructive sleep apnea, not treated. A. Polysomnogram 04/07/2017 showed apnea-hypopnea index (AHI) of 33.8. B. Mean oxygen saturation for this study was 89% with a minimum recorded value of 79%. C. Periodic limb movement index 17.6. FAMILY HISTORY/SOCIAL HISTORY/REVIEW OF SYSTEMS: Not obtainable secondary to intubation. LABORATORY DATA: CBC from this morning showed a hemoglobin of 13.1, hematocrit 42.9, platelet count 342,000, white blood cell count 18,000 with a differential of 88% neutrophils, 4% lymphocytes, 7% monocytes. Chemistries showed a sodium of 138, potassium 6.9 (partially hemolyzed), chloride 103, bicarbonate 31, anion gap 4, BUN 18, creatinine 1.1, glucose 220, calcium 8.2, total bilirubin 0.2, AST 34, ALT 25, alkaline phosphatase 108, ammonia 69, CK 226, CK-MB 3, troponin 0.02, BNP 293, total protein 7.3, albumin 3.3. Repeat electrolytes 4 hours later showed a sodium of 141, potassium 5.4, chloride 105, bicarbonate 20, anion gap 8, BUN 18, creatinine 1.1, glucose 141, calcium 8.4, CK 237, CK-MB 3. Lactic acid this morning was 1.3. INR was 1.11. Initial arterial blood gas was 6.99, 167, 64 with a measured saturation of 86% and a base excess of 2.1. Repeat arterial blood gas after intubating and on assist control, tidal volume 370, rate 18, PEEP 8 and an FiO2 of 0.4 was 7.33/57/95 with a measured saturation of 98% and a base excess of 2.0. I reviewed her chest x-ray, as well as the report. That x-ray showed normal-appearing cardiac silhouette and pulmonary vascular shadows. Normal appearing mediastinal region. There is a left upper lobe infiltrate. Endotracheal tube is in good position. On a weaning trial of pressure support of 5, PEEP of 5, FiO2 of 0.4, her arterial blood gas was 7.37/56/99 with a measured saturation of 98% and a base excess of 5.1. Her rapid shallow breathing index was in the 40s, which predicts success. ASSESSMENT: 1. Acute on chronic hypercapnic and hypoxemic respiratory failure leading to mechanical ventilation, felt secondary to pain medication and postoperative status and untreated obstructive sleep apnea. 2. Left upper lobe opacity. She did experience emesis during intubation and had been in Trendelenburg and so this may be aspiration despite the location. If it is aspiration, it may be a pneumonitis more so than an infiltrate. That should take some time to set up. There is no history to suggest that she was ill coming into the surgery. 3. Postoperative day #1 status post left total knee arthroplasty. 4. Obstructive sleep apnea, severe, untreated. 5. Nocturnal hypoxemia. It is not known whether she has daytime hypoxemia. She has risk factors for obesity hyperventilation syndrome. 6. Obesity. 7. Anxiety/depression. 8. Deep vein thrombosis (DVT) prophylaxis with Xarelto. 9. Stress ulcer prophylaxis with proton pump inhibitor. 10. Nutrition. Nothing by mouth. RECOMMENDATIONS: 1. During her weaning trial, her rapid shallow breathing index predicts success. Therefore, we will proceed with extubation. 2. She needs to be extubated to noninvasive mechanical ventilation. Anticipate this will be changed to bilevel therapy to be used for naps and nocturnally. I have spoken to the director of the sleep lab to see if we could borrow one of their masks given her significant claustrophobia, she will do better with either minimal face mask or nasal mask. ADDENDUM: She is now extubated and doing well. In fact, she has just completed her first physical therapy (PT). I have obtained her previous sleep study report, as indicated above, showing her severe disease. She is able to tolerate the nasal mask and will work with us and understands that she needs to tolerate the bilevel device, at least during the hospitalization. Pain medications still need to be minimized. Ideally, she would be on end tidal CO2 monitoring. If that is not available, she needs to be watched closely and the FiO2 cannot be increased to more than 3 liters without obtaining an arterial blood gas. Critical care time was 65 minutes, not including procedure time.
[2019-01-22] MEDS: VANCOMYCIN HCL 1,000 MG, VIAL MATE ADAPTER 1 EACH in D5W 250 ML IV SCH (14:43)
--- NOTE | 2019-01-22 15:38 | PHACANCOPD ---
PHARMACY VANCOMYCIN DOSING Pt Demographics Demographics Patient Age:63 , Weight:125.800 , Gender: female Adjusted Body Weight Date: 01/22/19, Adjusted Body Weight: Kg Events Past 24 Hours Events Past 24 Hours: YES: Fever, Elevation in WBC Vancomycin Vancomycin Target Ranges: 15-20 mcg/ml Vancomycin Load Y/N: Yes Load Dose Date Time Vancomycin Load Dose: 2 GM Date: 01/22/19 Time: 1500 Vancomycin Dose Date: 01/22/19. Current Vancomycin Dose: [1500 MG IV Q12H] Intermittent Dosing?: No Labs Labs Vital Signs Label Value Date Time Patient Temperature 99.6 degrees F 01/22/19 1200 Temperature Source Temporal 01/22/19 1200 Item Value Date Time White Blood Count 18.0 10^3/uL H 01/22/19 0733 Micro Microbiology 01/22/19 Blood Culture, Received Pending 01/22/19 Blood Culture, Received Pending Creatinine Clearance Date:01/22/19. Creatinine Clearance: [69.4 ML/MIN] USING ADJUSTED BW. Assessment and Plan Maintaining Current Dose?: Yes Reason for dose change: No Dose Change Pharmacist Note Pharmacist Note Date: 01/22/19. Pharmacist note: Pharmacy consulted for Vancomycin dosing for treatment of pneumonia. Will shoot for a goal trough of 15-20 mcg/ml. Patient has no previous MRSA history or previous treatment with Vancomycin here at [facility]. Will request to obtain MRSA nasal swab. Plan is to load patient with 2 grams and will follow with 1500 mg IV q12h. Pharmacy will continue to monitor and make adjustments as needed. LORENZO [facility]ORDO[facility] Jan 22, 2019 15:37
--- NOTE | 2019-01-22 17:45 | RO ---
DATE OF PROCEDURE: 01/22/2019 PROCEDURE PERFORMED: Endotracheal intubation. PERFORMING PHYSICIAN: Dr. Nancy Carty PREPROCEDURE DIAGNOSIS: Acute hypoxia. POSTPROCEDURE DIAGNOSIS: Acute hypoxic hypercarbic respiratory failure. SEDATION: 20 mg of etomidate. Rapid response was called for hypoxic respiratory failure. Patient was given two doses of Narcan 0.4 mg without response. Subsequently the decision was made to intubate the patient. Patient was bagged and subsequently 20 of etomidate was given. Decision was made not to paralyze the patient given no lab is available. Subsequently GlideScope was used and patient was intubated with a size 3 GlideScope, epiglottis and cord was visualized and ET tube was inserted. CO2 detector showed visible color change when bagged as well as bilateral breath sounds was heard. Subsequently the patient was brought to the intensive care unit as per respiratory therapist. There was concern that the ET tube cuff is not sufficiently inflated and there is air leak involved subsequently attempt was made to exchange the tube. Initially the patient had a line of 22 subsequently initial attempt was made to use a Bougie to change tube but was unsuccessful because patient was biting down. Subsequently 20 more of etomidate was given while the patient is in ICU and ET tube was removed and GlideScope was once again used. Patient's cord and epiglottis was visualized and subsequently the patient was reintubated with a size 7.5 ET tube and had a length of 23 with visible CO2 detector color change and bilateral breath sound was heard. X-ray was ordered for confirmation. Patient tolerated the intubation without and difficulty and patient was connected to the ventilator with a volume control. Rate of 14, title volume 380, FiO2 60% as well as a Peep of 5. While after intubation, patient had an episode of hypotension, 1 liter bolus was given with good response. Repeat ABG shows resolution of hypercarbia and hypoxia. On the ventilator the patient is sating at 99% with 60 of FiO2. Subsequently instruction was given to wean FiO2. Please refer to critical care note for further information. Patient tolerated intubation without any complication.
--- NOTE | 2019-01-22 18:14 | IPN ---
DATE: 01/22/2019 CRITICAL CARE NOTE Sign off received from swing shift team and assumed care of the patient at 7:00 a.m. this morning. Rapid response was called on the patient at 7:19, provider present at rapid response at 7:20. A rapid response was called for unresponsiveness and hypoxic respiratory failure. Information was gathered. Patient status post left total knee arthroplasty yesterday, had issue with hypoxia, is morbidly obese, has a history of obstructive sleep apnea, noncompliant with continuous positive airway pressure (CPAP) due to anxiety and claustrophobia. Patient is currently on 100% nonrebreather, saturation around 84% with blood pressure of 117/84, heart rate of 110, breathing at a rate of 14, shallow and coarse. Given Narcan 0.4 mg twice without much response. Decision was made to intubate the patient. The patient was initially intubated with 20 of etomidate and after intubation, patient was agitated and biting down on endotracheal (ET) tube. Subsequently, 5 mg of Versed has been given intravenously (IV). Patient was brought to the intensive care unit (ICU), and it was noted that the patient's ET tube cuff is leaking air. Subsequently, the patient was reintubated with another 20 of etomidate at which point one liter of fluid bolus was also instructed to be given because the patient was hypotensive down to 76/50. Patient responded well after one liter of fluid. Labs were also sent off. Arterial blood gas (ABG) shows hypercarbic hypoxic respiratory failure. Patient was connected to the ventilator with volume control 14, 380, 60% FiO2, PEEP of 5 based on patient's ideal body weight with saturation of 99%. Sedation was ordered with Versed as needed and propofol drip. Once patient's blood pressure has improved later with the bolus and propofol drip was added, initially Versed as needed was given. IV fluid maintenance was given. Patient was left nothing by mouth given the potential of extubation in the next 24 hours. Supervisory It Specialist, Dr. Petty, was consulted for ventilator management. Chlorhexidine was given as well as Protonix. Antibiotic was empirically started as well. Patient did vomit after first intubation. Zosyn and vancomycin was started given leukocytosis and hypoxia. Chest x-ray appreciated. Later during the day, patient had resolution of hypercarbia and hypoxia. Subsequently, sedation vacation was provided. Patient is alert, following commands and is tolerating spontaneous trial with a pressure support of 5, PEEP of 5 with a RSBI of less than 70. Subsequently, after discussion with Dr. Petty, patient was extubated to bilevel positive airway pressure (BiPAP) and special BiPAP mask has been provided to the patient, and patient was extubated to BiPAP 18/12. Repeat ABG has been appreciated with resolution of hypercarbia. Patient will need to be on BiPAP overnight and for naps. Further recommendation as per skates operator. Advance diet as tolerated. PHYSICAL EXAMINATION: Vital Signs: Temperature 99.6, pulse 74, respirations 21, blood pressure 113/56, pulse oximetry 99% on two liters. General: Patient alert, is a bit anxious and restless but tolerating BiPAP. Obese. Bilateral coarse breath sounds. Cardiac: Regular. S1, S2. Abdomen: Soft, obese. Extremities: Left knee wrap in place. Dorsalis pedis (DP), posterior tibial (PT) pulses 2+ bilateral. Trace edema bilateral lower extremities. LABORATORY - pH initial 6.99, 166, 64.3, 38.8, after spontaneous trial 7.37, 56, 98.6. WBC 18, hemoglobin and hematocrit 13.1 over 42.9, platelets 342. Chemistry: Sodium 138, potassium 6.9, chloride 103, bicarbonate 31, BUN 18, creatinine 1.1. Cardiac enzymes negative times two. ASSESSMENT AND PLAN: This is a 63-year-old morbidly obese, poorly compliant patient with underlying medical history of anxiety, claustrophobia, acne rosacea, morbid obesity, obstructive sleep apnea, has been noncompliant with CPAP and has not show up after sleep study to get patient's CPAP. Initially admitted under orthopedic service for elective left total knee arthroplasty, status post surgery complicated with acute hypoxic hypercarbic respiratory failure overnight. PROBLEMS: 1. Acute hypoxic hypercarbic respiratory failure, likely secondary to untreated obstructive sleep apnea due to poor compliance in the setting of surgery and narcotics and obesity hypoventilation syndrome, status post intubation and extubation, currently on BiPAP at night. Supervisory It Specialist consulted. BiPAP setting 18/12 with titrate FiO2 for 89/92. Repeat ABG is appreciated. Advance diet as tolerated. Discontinue fluids when tolerating diet. Encourage physical therapy. Avoid narcotics. 2. Possible aspiration pneumonia. Culture has been sent. Empirically started on Zosyn and vancomycin but given patient vomited with also hypoxia, will reassess the patient tomorrow and discontinue antibiotics if patient does not develop pneumonia. 3. Obesity complicating care. 4. Left total knee arthroplasty. Management as per orthopedics. Xarelto for anticoagulation. Avoid narcotics or benzodiazepines (benzos) for pain control, anxiety given the episode of hypoxic hypercarbic respiratory failure. Motrin and acetaminophen for pain. Physical therapy (PT). BLADE protocol. Encourage BiPAP at night. Physical therapy, occupational therapy (OT). 5. Morbid obesity. Complicating care. 6. Anxiety/depression. Monitor closely. Supportive care. Avoid sedative medications. 7. Obstructive sleep apnea and obesity hypoventilation syndrome. Encourage BiPAP at night at above settings. Further recommendation as per skates operator. 8. Deep vein thrombosis (DVT) prophylaxis. Patient on Xarelto as per orthopedics. DISPOSITION: PT, OT, clinical improvement. Advance diet as tolerated. Arrangement for home CPAP or BiPAP as per skates operator. CRITICAL CARE TIME: 45 minutes.
[2019-01-22] MEDS: PIPERACILLIN/TAZOBACTAM SOD 3.375 GM in D5W MINI-BAG PLUS 50 ML IV SCH ×2 (18:58→23:26)
[2019-01-22] MEDS: ACETAMINOPHEN TAB 650MG DOSE (2X325MG) PO PRN (18:59)
[2019-01-22] MEDS: IBUPROFEN 400 MG TAB PO PRN (21:16)
[2019-01-23] VITALS (7 sets, daily range): BP systolic 100–146; BP diastolic 51–70; O2SAT 98
--- NOTE | 2019-01-23 00:57 | ECGEPIP ---
Stationary ECG Study [facility] Test Date: 2019-01-22 Pat Name: TREVOR ELLISON Department: Room: [place] [address] Gender: F Bit Shaver: SARITHA : 1955 Requested By: ORQUIDEA Garza Order Number: [id number] Reading MD: Hadley Grande Measurements Intervals Douglas Rate: 92 P: 55 NM: 185 QRS: 12 QRSD: 113 T: 40 QT: 351 QTc: 434 Interpretive Statements SINUS RHYTHM MODERATE INTRAVENTRICULAR CONDUCTION DELAY PRIOR TRACING ON 11/02/2018 AT 11:34:05 A.M., HEART RATE IS NOW FASTER Electronically Signed On 01-23-2019 0:56:54 EDT by Hadley Grande
[2019-01-23] MEDS: VANCOMYCIN HCL 1,000 MG, VIAL MATE ADAPTER 1 EACH in D5W 250 ML IV SCH ×2 (02:22→14:25)
[2019-01-23] MEDS: ACETAMINOPHEN TAB 650MG DOSE (2X325MG) PO PRN ×3 (02:22→17:35)
[2019-01-23] MEDS: VANCOMYCIN HCL 500 MG in D5W MINI-BAG PLUS 100 ML IV SCH ×2 (03:30→15:28)
[2019-01-23 04:56] LABS: BASO % 0.2 % (0.0-1.0); EOS # 0.1 10^3/uL (0.0-0.50); EOS % 0.9 % (0.0-3.0); HEMATOCRIT 35.5 % (36.0-47.0); LYMPH # 2.4 10^3/uL (1.5-4.5); LYMPH % 23.8 % (24.0-44.0); MEAN CORPUSCULAR VOLUME 90.3 fl (80.0-96.0); MONO # 0.9 10^3/uL (0.0-0.8); MONO % 8.7 % (0.0-5.0); NEUTROPHILS # 6.6 10^3/uL (1.8-7.7); PLATELET COUNT, AUTOMATED 210 10^3/uL (150-450); RED BLOOD COUNT 3.93 10^6/uL (4.00-5.40)
[2019-01-23 05:08] LABS: BLOOD UREA NITROGEN 14 MG/DL (7-18); CALCIUM LEVEL 8.1 MG/DL (8.8-10.2); CARBON DIOXIDE LEVEL 31 MEQ/L (21-32); CHLORIDE LEVEL 106 MEQ/L (98-107); CREATININE FOR GFR 0.92 MG/DL (0.55-1.30); GLOMERULAR FILTRATION RATE > 60.0 (>45); GLUCOSE, FASTING 130 MG/DL (70-100); MAGNESIUM LEVEL 1.9 MG/DL (1.8-2.4); POTASSIUM SERUM 4.2 MEQ/L (3.5-5.1); SODIUM LEVEL 141 MEQ/L (136-145)
[2019-01-23] MEDS: PIPERACILLIN/TAZOBACTAM SOD 3.375 GM in D5W MINI-BAG PLUS 50 ML IV SCH ×3 (05:35→17:35)
[2019-01-23 08:17] LABS: C REACTIVE PROTEIN QUANTITATIV 6.57 MG/DL (0.00-0.30)
[2019-01-23] MEDS: PANTOPRAZOLE 40MG INJ (PROTONIX) (C9113) IV SCH (08:19)
[2019-01-23] MEDS: MIRALAX *UNIT DOSE* 17GM PACKET PO SCH (08:20)
[2019-01-23] MEDS: RIVAROXABAN 10 MG TAB (XARELTO) PO SCH (08:20)
[2019-01-23] MEDS: IBUPROFEN 400 MG TAB PO PRN (13:17)
--- NOTE | 2019-01-23 14:48 | REP ---
CHEST X-RAY: Two views. HISTORY: Shortness of breath. COMPARISON CHEST X-RAY: January 22, 2019. FINDINGS: EKG monitoring electrodes overlie the chest. The lungs are well inflated and clear today. Previously noted left upper lobe infiltrate has cleared. Pleural angles are sharp. Heart size is normal. No new infiltrate is seen. There are mild degenerative changes in the thoracic spine. IMPRESSION: No active disease. Recently noted left upper lobe infiltrate has resolved. Electronically Signed by Chase Lainez MD 01/23/2019 05:15 P
[2019-01-24] VITALS: BP 122/70
[2019-01-24 04:00] VITALS: BP 143/73
[2019-01-24 04:10] VITALS: O2SAT 98
[2019-01-24 04:41] LABS: BASO # 0.1 10^3/uL (0.0-0.2); BASO % 0.6 % (0.0-1.0); EOS # 0.3 10^3/uL (0.0-0.50); EOS % 3.3 % (0.0-3.0); HEMATOCRIT 35.1 % (36.0-47.0); HEMOGLOBIN 11.1 g/dl (12.0-15.5); LYMPH # 2.4 10^3/uL (1.5-4.5); LYMPH % 26.7 % (24.0-44.0); MEAN CORPUSCULAR HGB CONC 31.6 g/dl (32.0-36.5); MEAN CORPUSCULAR VOLUME 88.6 fl (80.0-96.0); MONO # 0.7 10^3/uL (0.0-0.8); NEUTROPHILS # 5.6 10^3/uL (1.8-7.7); NEUTROPHILS % 61.1 % (36.0-66.0); PLATELET COUNT, AUTOMATED 217 10^3/uL (150-450); RED BLOOD COUNT 3.96 10^6/uL (4.00-5.40); WHITE BLOOD COUNT 9.1 10^3/uL (4.0-10.0)
[2019-01-24 04:54] LABS: BLOOD UREA NITROGEN 18 MG/DL (7-18); C REACTIVE PROTEIN QUANTITATIV 7.85 MG/DL (0.00-0.30); CALCIUM LEVEL 8.2 MG/DL (8.8-10.2); CARBON DIOXIDE LEVEL 32 MEQ/L (21-32); CHLORIDE LEVEL 106 MEQ/L (98-107); GLOMERULAR FILTRATION RATE > 60.0 (>45); GLUCOSE, FASTING 116 MG/DL (70-100); MAGNESIUM LEVEL 1.9 MG/DL (1.8-2.4); POTASSIUM SERUM 4.1 MEQ/L (3.5-5.1); SODIUM LEVEL 143 MEQ/L (136-145)
--- NOTE | 2019-01-24 06:49 | ECHO ---
DATE OF STUDY: 01/22/2019 REFERRING PHYSICIAN: Dr. Nancy Carty INDICATION: Dyspnea. HEIGHT: 160 cm WEIGHT: 126 kg 2D MEASUREMENTS: Left atrium 4.2 cm Aortic root 2.8 cm Ventricular septum 1.20 cm Posterior wall 1.21 cm Left ventricle diastole 5.3 cm LVOT 1.8 cm Inferior vena cava 2.5 cm DOPPLER MEASUREMENTS: Aortic valve velocity 128 cm/s LVOT velocity 112 cm/s LVOT VTI 23.5 cm Mitral E velocity 66.0 cm/s Mitral A velocity 62.1 cm/s Mitral deceleration time 190 ms No mitral regurgitation. Trace tricuspid regurgitation. No pulmonic regurgitation. Pulmonary artery systolic pressure 34 mmHg MITRAL ANNULAR TISSUE DOPPLER: E prime septal 7.72 cm/s E prime lateral 10.6 cm/s DESCRIPTION: Rhythm was sinus. Image quality was fair. No pericardial effusion. This was a 2D, M mode, color flow Doppler, and pulse wave Doppler examination and included mitral annular tissue Doppler. CONCLUSIONS: 1. Borderline concentric left ventricular hypertrophy (LVH). Normal regional LV wall motion and wall thickening. Normal LV systolic function. Left ventricular ejection fraction (LVEF) 65% by visual estimate. LV diastolic function within normal limits for age. 2. Mild left atrial dilatation. 3. Suggestive of mild elevation of pulmonary artery systolic pressure. Normal right ventricle size and systolic function. 4. Inferior vena cava plethora. 5. Mild aortic valve sclerosis of a three-cuspid aortic valve. No aortic regurgitation. edited: 01/24/2019 1146 tkf MTDD
[2019-01-24] MEDS: RIVAROXABAN 10 MG TAB (XARELTO) PO SCH (07:59)
[2019-01-24] MEDS: IBUPROFEN 800 MG TAB PO PRN ×2 (07:59→14:19)
[2019-01-24] MEDS: PANTOPRAZOLE 40MG TAB (PROTONIX) PO SCH (07:59)
[2019-01-24] MEDS: MIRALAX *UNIT DOSE* 17GM PACKET PO SCH (07:59)
[2019-01-24 08:00] VITALS: BP 131/50
--- NOTE | 2019-01-24 10:15 | IPN ---
DATE: 01/23/2019 The patient is seen and examined. No acute events overnight. Speaks in full sentences. Denies any chest pain, pressure or discomfort. Reported mild cough. Denies any fevers, chills. Has been using BiPAP at night. VITAL SIGNS: Temperature 97, pulse 76, respirations 20, blood pressure 136/60, pulse oximetry 98% on 2 liters and 88% on room air. LABORATORY: WBC 10, hemoglobin and hematocrit 11/35.5, platelets 210. Chemistry: Sodium 141, potassium 4.2, chloride 106, bicarbonate 31, BUN 14, creatinine 0.9, C-reactive protein 6.57. PHYSICAL EXAMINATION: GENERAL: The patient is comfortable and in no acute distress. Morbid obesity. Answers questions in no acute distress. No respiratory distress. HEENT: Normocephalic, atraumatic. PULMONARY: Bilaterally clear. No wheeze, rales, or rhonchi. CARDIAC: Regular. S1, S2. ABDOMEN: Soft, nontender. EXTREMITIES: Left knee is dressing soaked with blood. Mild erythema. Dorsalis pedis and posterior tibialis pulses intact, 2+ bilateral. No significant edema. ASSESSMENT AND PLAN: This is a 63-year-old female patient with morbid obesity, poorly compliant with underlying medical history of anxiety, claustrophobia, acne rosacea, obstructive sleep apnea, noncompliant with continuous positive airway pressure (CPAP), has had previous sleep study done and has not shown up for further sleep study and titration study. Initially admitted under orthopedic service for elective left total knee arthroplasty, status post surgery complicated with acute hypoxic hypercarbic respiratory failure overnight. 1. Acute hypoxic hypercarbic respiratory failure secondary to untreated sleep apnea in the setting of recent surgery and pain medications and poor compliance. The patient is status post extubation and currently on BiPAP at night, 23/10. Consulted pulmonary. Need to arrange for outpatient sleep study as soon as discharged. Currently tolerating oral. Encouraged physical therapy (PT). Avoid benzodiazepine and narcotics. Nighttime BiPAP. Obstructive sleep apnea protocol. 2. Metabolic encephalopathy secondary to hypercarbic respiratory failure, resolved. 3. Possible aspiration. Currently, the patient has no respiratory complaints. Subsequently, vancomycin and Zosyn have been discontinued. We will monitor closely. 4. Morbid obesity, complicating care. 5. Left total knee arthroplasty. Management as per orthopedics. Xarelto for anticoagulation. Avoid narcotics, benzodiazepine. Tylenol and Motrin for pain. Physical therapy (PT) and occupational therapy (OT). Encourage BiPAP at night. BLADE protocol. 6. Anxiety and depression. Monitor closely. Avoid sedatives. 7. Obstructive sleep apnea and obesity hyperventilation syndrome. Encourage BiPAP at night. Further recommendations as per prospecting observer. 8. Deep vein thrombosis (DVT) prophylaxis. The patient is on Xarelto as per orthopedics. DISPOSITION: Physical therapy and occupational therapy, clinical improvement. Final pulmonary recommendations. We will place acute rehabilitation evaluation.
--- NOTE | 2019-01-24 11:33 | IPN ---
DATE: 01/24/2019 Ms. Bose did reasonably well overnight. She did wear her bilevel for a period of time but then took it off around 4 a.m. She still finds it uncomfortable but is doing reasonably well with the nasal mask. No shortness of breath. No chest pain. She still has a cough productive of brownish sputum. She is working with physical therapy. No new concerns expressed. OBJECTIVE/PHYSICAL EXAMINATION: VITAL SIGNS: Temperature 98.3, with a maximum temperature (T-max) of 98.3, respiratory rate 18, pulse 62 blood pressure 143/73 with a map of 96. SpO2 on room air. HEENT: Anicteric. Nares: Patent bilaterally. Moist mucosa. Oropharynx clear. Mallampati IV. NECK: Supple without thyromegaly or masses. Trachea is midline. LYMPHS: Without cervical or supraclavicular lymphadenopathy. LUNG: Mildly diminished air entry. No wheeze, rhonchi or crackle on tidal excursion. Normal I:E. No accessory muscle uses or retractions. CARDIOVASCULAR: Regular rate and rhythm with a normal S1, S2, no murmurs, rub or gallop appreciated. ABDOMEN: Positive bowel sounds. Soft, nontender. LABORATORY DATA: CBC showed a hemoglobin 11.1, hematocrit 35.1, platelet count 217,000, white blood cell count 9100 with a differential 61% neutrophils, 27% lymphocytes, 8% monocytes and 3% lymphocytes. Chemistries show sodium 143, potassium 4.1, chloride 106, bicarbonate 32, anion gap 5, BUN 18, creatinine 0.8, glucose 116, calcium 8.2, magnesium 1.9, CRP 7.85. I reviewed her chest x-ray as well as the report from yesterday. That was a two-view x-ray. That showed normal appearing cardiac silhouette and pulmonary shadows. Normal appearing mediastinal and hilar regions. Normal inflation. The previously seen left upper lobe infiltrate has resolved. IMPRESSION: 1. Chronic hypercapnic and hypoxemic (nocturnal) respiratory failure. 2. Obstructive sleep apnea, severe with significant nocturnal desaturations, not treated as outpatient. 3. Left upper lobe pneumonitis, secondary to aspiration, resolved. 4. Status post total left knee arthroplasty. RECOMMENDATIONS: 1. Agree with discontinuing antibiotics. With resolution of the infiltrate that quickly, it supports the diagnosis of pneumonitis not pneumonia. 2. I reviewed the morbidity of untreated sleep apnea and questions answered. 3. I strongly recommended to Ms. Bose that she continue to wear the bilevel device. 4. I discussed with her that I would be happy to evaluate her as an outpatient and arrange for a titration study of she chose to. I will ask the house staff to have her followup with me ONLY if she decides she wants to pursue therapy. There is no point in having her followup with pulmonary clinic if she is not going to go further. The morbidity of untreated sleep apnea has been thoroughly reviewed with her more than one time. 5. The pulmonary team will sign off at this point. Please contact the pulmonary service if there are any further questions or concerns.
--- NOTE | 2019-01-24 12:54 | IPNPDOC ---
Text Note Date of Service The patient was seen on 01/24/19. NOTE SUBJECTIVE: The patient is seen and examined. No acute events overnight. Sp eaks in full sentences. Denies any chest pain, pressure or discomfort. Reported mild cough. Denies any fevers, chills. Has been using BiPAP at night. PHYSICAL EXAMINATION: VITAL SIGNS: As below GENERAL: The patient is comfortable and in no acute distress. Morbid obesity. Answers questions in no acute distress. No respiratory distress. HEENT: Normocephalic, atraumatic. PULMONARY: Bilaterally clear. No wheeze, rales, or rhonchi. CARDIAC: Regular. S1, S2. ABDOMEN: Soft, nontender. EXTREMITIES: Left knee is dressing soaked with blood. Mild erythema. Dorsalis pedis and posterior tibialis pulses intact, 2+ bilateral. No significant edema. LABS and radiology : reviewed. ASSESSMENT AND PLAN: This is a 63-year-old female patient with morbid obesity, poorly compliant with underlying medical history of anxiety, claustrophobia, acne rosacea, obstructive sleep apnea, noncompliant with continuous positive airway pressure (CPAP), has had previous sleep study done and has not shown up for further sleep study and titration study. Initially admitted under orthopedic service for elective left total knee arthroplasty, status post surgery complicated with acute hypoxic hypercarbic respiratory failure overnight. 1. Acute on chronic hypoxic hypercarbic respiratory failure secondary to untreated sleep apnea in the setting of recent surgery and pain medications and poor compliance. The patient is status post extubation and currently on BiPAP at night, 18. Consulted pulmonary. Need to arrange for outpatient sleep study as soon as discharged if patient is agreeable. Encouraged physical therapy (PT). Avoid benzodiazepine and narcotics. Nighttime BiPAP. Obstructive sleep apnea protocol. Patient says she will never be able to use the CPAP as she is claustrophobic and cannot keep the mask on and cannot sleep if she has the mask on 2. Metabolic encephalopathy secondary to hypercarbic respiratory failure, resolved. 3. Possible aspiration Pneumonitis: Currently, the patient has no respiratory complaints. Subsequently, vancomycin and Zosyn have been discontinued. We will monitor closely. 4. Morbid obesity, complicating care. 5. Left total knee arthroplasty. Management as per orthopedics. Xarelto for anticoagulation. Avoid narcotics, benzodiazepine. Tylenol and Motrin for pain. Physical therapy (PT) and occupational therapy (OT). Encourage BiPAP at night. BLADE protocol. 6. Anxiety and depression. Monitor closely. Avoid sedatives. 7. Obstructive sleep apnea and obesity hyperventilation syndrome. Encourage BiPAP at night. Follow up with pulmonology only if she wishes to pursue further treatment for BLADE and wear mask. 8. Deep vein thrombosis (DVT) prophylaxis. The patient is on Xarelto as per orthopedics. DISPOSITION: Physical therapy and occupational therapy. We will consider acute rehabilitation evaluation. VS,Fishbone, I+O VS, Fishbone, I+O Laboratory Tests 01/24/19 04:15 Red Blood Count 3.96 L, Mean Corpuscular Volume 88.6, Mean Corpuscular Hemoglobin 28.0, Mean Corpuscular Hemoglobin Concent 31.6 L, Red Cell Distribution Width 13.8, Neutrophils (%) (Auto) 61.1, Lymphocytes (%) (Auto) 26.7, Monocytes (%) (Auto) 8.0 H, Eosinophils (%) (Auto) 3.3 H, Basophils (%) (Auto) 0.6, Neutrophils # (Auto) 5.6, Lymphocytes # (Auto) 2.4, Monocytes # (Auto) 0.7, Eosinophils # (Auto) 0.3, Basophils # (Auto) 0.1, Calcium Level 8.2 L Vital Signs Date Time Temp Pulse Resp B/P (MAP) Pulse Ox O2 Delivery O2 Flow Rate FiO2 01/24/19 08:00 4.0 01/24/19 08:00 97.5 73 20 131/50 (77) 94 01/24/19 04:10 BIPAP/CPAP 01/23/19 04:00 40 I&O- Last 24 Hours up to 6 AM 01/24/19 06:00 Intake Total 810 ml Output Total 870 ml Balance -60 ml BRANDIE HARRISON MD Jan 24, 2019 12:54
[2019-01-24 16:45] VITALS: BP 131/86
[2019-01-24 22:00] VITALS: BP 163/70
[2019-01-24] MEDS: ACETAMINOPHEN TAB 650MG DOSE (2X325MG) PO PRN (22:01)
[2019-01-25 06:00] VITALS: BP 130/74
[2019-01-25] MEDS ORDERED: ACETAMINOPHEN 500 MG TAB PO SCH (06:00)
[2019-01-25 06:21] LABS: BASO % 0.4 % (0.0-1.0); EOS # 0.4 10^3/uL (0.0-0.50); EOS % 4.9 % (0.0-3.0); HEMATOCRIT 36.4 % (36.0-47.0); HEMOGLOBIN 11.5 g/dl (12.0-15.5); LYMPH # 2.4 10^3/uL (1.5-4.5); LYMPH % 28.1 % (24.0-44.0); MEAN CORPUSCULAR HEMOGLOBIN 27.7 pg (27.0-33.0); MEAN CORPUSCULAR HGB CONC 31.6 g/dl (32.0-36.5); MEAN CORPUSCULAR VOLUME 87.7 fl (80.0-96.0); MONO # 0.6 10^3/uL (0.0-0.8); MONO % 6.8 % (0.0-5.0); NEUTROPHILS # 5.1 10^3/uL (1.8-7.7); NEUTROPHILS % 59.6 % (36.0-66.0); PLATELET COUNT, AUTOMATED 264 10^3/uL (150-450); RED BLOOD COUNT 4.15 10^6/uL (4.00-5.40); WHITE BLOOD COUNT 8.5 10^3/uL (4.0-10.0)
[2019-01-25 06:41] LABS: BLOOD UREA NITROGEN 20 MG/DL (7-18); CALCIUM LEVEL 8.4 MG/DL (8.8-10.2); CARBON DIOXIDE LEVEL 31 MEQ/L (21-32); CHLORIDE LEVEL 106 MEQ/L (98-107); CREATININE FOR GFR 0.77 MG/DL (0.55-1.30); GLOMERULAR FILTRATION RATE > 60.0 (>45); GLUCOSE, FASTING 122 MG/DL (70-100); POTASSIUM SERUM 3.9 MEQ/L (3.5-5.1); SODIUM LEVEL 143 MEQ/L (136-145)
[2019-01-25] MEDS ORDERED: XARE10TA PO (08:03)
[2019-01-25] MEDS ORDERED: ACET-683 PO (08:06)
[2019-01-25] MEDS: MIRALAX *UNIT DOSE* 17GM PACKET PO SCH (09:00)
[2019-01-25] MEDS: RIVAROXABAN 10 MG TAB (XARELTO) PO SCH (09:10)
[2019-01-25] MEDS: PANTOPRAZOLE 40MG TAB (PROTONIX) PO SCH (09:10)
[2019-01-25] MEDS ORDERED: hydrOXYzine 10 MG TAB PO ONE (09:45)
== END 2019-01-25 13:30 | disposition home health service (06) | DRG 302 ==
LOC: M OR 12:41 → M PCU 18:45 → M ICU 01-22 07:38 → M MS5PR 01-24 16:26
PROVIDERS: ADMIT Orthopaedic Surgery; ATTEND Hospitalist
PROC: 0SRD0J9 Replacement of Left Knee Joint with Synthetic Substitute, Cemented, Open Approach (ICD-10-PCS; principal; 2019-01-21 15:15)
PROC: 5A1935Z Respiratory Ventilation, Less than 24 Consecutive Hours (ICD-10-PCS; 2019-01-22)
DX: M17.12 Unilateral primary osteoarthritis, left knee (principal); J69.0 Pneumonitis due to inhalation of food and vomit; J96.01 Acute respiratory failure with hypoxia; J96.02 Acute respiratory failure with hypercapnia; G93.41 Metabolic encephalopathy; Z68.42 Body mass index [BMI] 45.0-49.9, adult; E66.2 Morbid (severe) obesity with alveolar hypoventilation; G47.33 Obstructive sleep apnea (adult) (pediatric); Z79.899 Other long term (current) drug therapy; F41.9 Anxiety disorder, unspecified; L71.9 Rosacea, unspecified; Z88.0 Allergy status to penicillin; K21.9 Gastro-esophageal reflux disease without esophagitis; Z91.19 Patient's noncompliance with other medical treatment and regimen; F32.9 Major depressive disorder, single episode, unspecified

== ENCOUNTER 2019-03-12 17:52 | Emergency (ER) | payer OTHER ==
[~2019-03-12] VITALS: Ht 160 cm; Wt 123.4 kg
[~2019-03-12 17:52] MED LIST changes: +ACET-683 PO; -BUPIVACAINE LIPOSOME/PF 1.3% 20ML VIAL (13.3MG/ML)(EXPAREL)(C9290 PER1MG) As Ordered ONE; -EPINEPHrine INJ 1 MG/ML 1ML AMP As Ordered ONE; +PERC5TAB12 PO; -TRANEXAMIC ACID 100 MG/ML 10ML VIAL As Ordered ONE; +XARE10TA PO; -ceFAZolin 1GM INJ (J0690 PER 500MG) As Ordered ONE
[2019-03-12 20:25] LABS: BLOOD UREA NITROGEN 19 MG/DL (7-18); CALCIUM LEVEL 8.7 MG/DL (8.8-10.2); CARBON DIOXIDE LEVEL 30 MEQ/L (21-32); CHLORIDE LEVEL 106 MEQ/L (98-107); CREATININE FOR GFR 0.82 MG/DL (0.55-1.30); GLOMERULAR FILTRATION RATE > 60.0 (>45); GLUCOSE, FASTING 91 MG/DL (70-100); POTASSIUM SERUM 4.6 MEQ/L (3.5-5.1); SODIUM LEVEL 141 MEQ/L (136-145)
[2019-03-12] MEDS ORDERED: ISOVUE-370 76% 100ML VIAL (Q9967) As Ordered ONE (20:41)
[2019-03-12 22:42] VITALS: BP 104/59
--- NOTE | 2019-03-12 22:54 | REPVR ---
EXAM: CT Angiography Chest With Contrast EXAM DATE/TIME: 03/12/19 (9:55pm) CLINICAL HISTORY: 63 year old female with chest pain and SOB. Elevated D-dimer. Possible pulmonary embolism. TECHNIQUE: Imaging protocol: Axial computed tomographic angiography images of the chest with intravenous contrast using CT angiography protocol. Coronal and sagittal reformatted images were created and reviewed. 3D rendering: MIP reconstructed images were created and reviewed. Radiation optimization: All CT scans at this facility use at least one of these dose optimization techniques: automated exposure control; mA and/or kV adjustment per patient size (includes targeted exams where dose is matched to clinical indication); or iterative reconstruction. Contrast material: Isovue 370; Contrast volume: 100 ml Contrast route: IV COMPARISON: Chest films of 03/12/19 FINDINGS: Pulmonary arteries: Normal. No pulmonary emboli. Aorta: Normal. No aortic aneurysm. No aortic dissection. Lungs: Normal. No consolidation nor masses. Mild bibasilar hypoventilatory changes. Pleural space: Normal. No pneumothorax. No pleural effusions. Heart: Normal. No cardiomegaly. No pericardial effusion. Lymph nodes: Unremarkable. No enlarged lymph nodes. Bones/joints: No acute fracture. Multilevel degenerative thoracic spine changes. Soft tissues: Unremarkable. Upper abdomen: Diffuse fatty liver infiltration. Distended gallbladder. No calcified gallstones. Small hiatal hernia. IMPRESSION: No acute findings. No filling defects suspicious for pulmonary emboli are seen. There is no CT evidence of aortic dissection nor leakage. No aortic aneurysm is appreciated. Electronically signed by: Isi Mendoza On 03/12/2019 22:54:16 PM
[2019-03-12] MEDS ORDERED: MUCI600T31 PO (23:26)
--- NOTE | 2019-03-13 00:56 | REP ---
Clinical: Cough and shortness of breath . Comparison: 01/23/2019 . Technique: PA and lateral. Findings: The mediastinum and cardiac silhouette are normal. The lung euceda are clear and without acute consolidation, effusion, or pneumothorax. The skeletal structures are intact and normal. Impression: 1. No acute cardiopulmonary process. Electronically Signed by Franklyn Gaffney MD 03/13/2019 12:47 A
== END 2019-03-12 23:43 | disposition home or self-care (01) ==
LOC: M ED 17:52
DX: R05 Cough (principal); J45.909 Unspecified asthma, uncomplicated; K21.9 Gastro-esophageal reflux disease without esophagitis; G47.30 Sleep apnea, unspecified; Z79.899 Other long term (current) drug therapy; Z88.1 Allergy status to other antibiotic agents; Z91.011 Allergy to milk products; Z91.013 Allergy to seafood
CPT/HCPCS: 36415; 71046; 71275; 80048; 85379; 99284; Q9967

== ENCOUNTER → 2019-04-17 | Outpatient (CLI) | payer OTHER ==
[~2019-04-17] MED LIST changes: +MUCI600T31 PO
--- NOTE | 2019-04-17 11:41 | PFTRPT ---
Height: 63.00 Inches Weight: 275.00 Lbs BSA: 2.21 Diagnosis: Z77.22 DATE OF PROCEDURE: 04/17/2019 ORDERED BY: Dr. Yuli Garcia Spirometry: Pre and post bronchodilator study of excellent technical quality. Forced vital capacity reduced. FEV1 in proportion. Obstructive index is, therefore, normal. Flow Volume Loop: Expiratory limb of the flow volume loop suggests some nonspecific flow rate limitation. No significant bronchodilator response identified. Lung Volumes: Total lung capacity normal. Residual volume suggests air trapping. Diffusing Capacity: Diffusing capacity, although reduced, is appropriate for alveolar volume. Hemoglobin: No hemoglobin available for correction. Airway Mechanics: Airway resistance elevated with a concomitant decrease in airway conductance. IMPRESSION: Nonspecific flow rate limitation with underlying air trapping and diffusing capacity impairment. Please correlate clinically. MTDD
== END ==
LOC: M CARPUL 11:05
PROVIDERS: ATTEND Obstetrics & Gynecology
DX: R94.2 Abnormal results of pulmonary function studies (principal); Z77.22 Contact with and (suspected) exposure to environmental tobacco smoke (acute) (chronic)

== ENCOUNTER → 2019-04-25 | Outpatient (REF) | payer OTHER ==
[2019-04-25 13:44] LABS: MALB URINE SIEMENS 5.7 MG/L
== END ==
LOC: M SFHCPLAZ 08:22 → M SFHCADAM 08:55
PROVIDERS: ATTEND Family Medicine
DX: E11.9 Type 2 diabetes mellitus without complications (principal)

== ENCOUNTER → 2019-07-22 | Outpatient (REF) | payer OTHER ==
[~2019-07-22] MED LIST changes: -OMEP20CA3 PO; +OMEP20CA4 PO
[2019-07-22 20:20] LABS: BASO # 0.1 10^3/uL (0.0-0.2); BASO % 0.6 % (0.0-1.0); EOS # 0.3 10^3/uL (0.0-0.5); EOS % 3.9 % (0.0-3.0); HEMOGLOBIN 13.2 g/dl (12.0-15.5); LYMPH # 2.9 10^3/uL (1.5-5.0); LYMPH % 33.7 % (24.0-44.0); MEAN CORPUSCULAR HEMOGLOBIN 27.8 pg (27.0-33.0); MEAN CORPUSCULAR HGB CONC 32.2 g/dl (32.0-36.5); MEAN CORPUSCULAR VOLUME 86.3 fl (80.0-96.0); MONO # 0.7 10^3/uL (0.0-0.8); MONO % 8.5 % (0.0-5.0); NEUTROPHILS # 4.6 10^3/uL (1.5-8.5); NEUTROPHILS % 52.8 % (36.0-66.0); PLATELET COUNT, AUTOMATED 256 10^3/uL (150-450); RED BLOOD COUNT 4.75 10^6/uL (4.00-5.40); WHITE BLOOD COUNT 8.6 10^3/uL (4.0-10.0)
[2019-07-22 20:27] LABS: BLOOD UREA NITROGEN 16 MG/DL (7-18); CARBON DIOXIDE LEVEL 29 MEQ/L (21-32); CHLORIDE LEVEL 105 MEQ/L (98-107); CHOLESTEROL LEVEL 162 MG/DL (<200); CHOLESTEROL RISK RATIO 5.062 (<5); CREATININE FOR GFR 0.84 MG/DL (0.55-1.30); GLOMERULAR FILTRATION RATE > 60.0 (>45); GLUCOSE, FASTING 98 MG/DL (70-100); HDL CHOLESTEROL 32 MG/DL (>40); LDL CHOLESTEROL 102 MG/DL (<100); NON-HDL-C 130 MG/DL; NT-PRO BNP 48 PG/ML (<125); POTASSIUM SERUM 4.1 MEQ/L (3.5-5.1); SODIUM LEVEL 141 MEQ/L (136-145); TRIGLYCERIDES LEVEL 141 MG/DL (<150)
== END ==
LOC: M SFHCPLAZ 14:41
PROVIDERS: ATTEND Family Medicine
DX: E11.9 Type 2 diabetes mellitus without complications (principal); R06.09 Other forms of dyspnea

== ENCOUNTER 2019-09-08 07:15 | Emergency (ER) | payer OTHER ==
[~2019-09-08] VITALS: Ht 160 cm; Wt 125.0 kg
[~2019-09-08 07:15] MED LIST changes: -OMEP40CA2 PO; +OMEP40CA97 PO
[2019-09-08] MEDS ORDERED: METF500T13 (07:26)
[2019-09-08] MEDS ORDERED: ACETAMINOPHEN 325 MG TAB PO ONE (09:00)
[2019-09-08] MEDS ORDERED: KETOROLAC 30 MG/ML VIAL (J1885) IV ONE (09:00)
--- NOTE | 2019-09-08 09:07 | REP ---
Clinical: Bilateral lower extremity edema . Technique: Joe scale and color Doppler evaluation using linear high frequency transducer. Findings: Ultrasound examination of the right and left lower extremity deep venous structures from the common femoral vein to the popliteal vein demonstrates normal compressibility flow and wave patterns in response to respiration and augmentation. There is no evidence for deep venous thrombosis. There is a complex fluid collection along the medial aspect of the right popliteal fossa measuring 5.0 x 1.8 x 3.8 cm. Impression: No evidence for deep venous thrombosis. Complex fluid collection at the right popliteal fossa possible Houser's cyst. Electronically Signed by Franklyn Gaffney MD 09/08/2019 08:58 A
[2019-09-08 09:17] LABS: BASO % 0.4 % (0.0-1.0); EOS # 0.2 10^3/uL (0.0-0.5); EOS % 2.2 % (0.0-3.0); HEMATOCRIT 40.6 % (36.0-47.0); HEMOGLOBIN 13.4 g/dl (12.0-15.5); MEAN CORPUSCULAR HEMOGLOBIN 28.1 pg (27.0-33.0); MEAN CORPUSCULAR VOLUME 85.1 fl (80.0-96.0); MONO # 0.7 10^3/uL (0.0-0.8); MONO % 7.6 % (0.0-5.0); NEUTROPHILS # 5.6 10^3/uL (1.5-8.5); NEUTROPHILS % 58.5 % (36.0-66.0); PLATELET COUNT, AUTOMATED 321 10^3/uL (150-450); RED BLOOD COUNT 4.77 10^6/uL (4.00-5.40); WHITE BLOOD COUNT 9.6 10^3/uL (4.0-10.0)
--- NOTE | 2019-09-08 09:20 | REP ---
Clinical: Lower extremity edema and ulcerations. Technique: Axial minor scale and color evaluation using linear high frequency transducer. Findings: Directed bilateral ultrasound examinations in the region of the noted ulcerations demonstrates surrounding subcutaneous edema without discrete abscess formation identified. Impression: No obvious abscess identified. Electronically Signed by Franklyn Gaffney MD 09/08/2019 09:12 A
[2019-09-08 09:39] LABS: BLOOD UREA NITROGEN 18 MG/DL (7-18); C REACTIVE PROTEIN QUANTITATIV 2.58 MG/DL (0.00-0.30); CALCIUM LEVEL 9.1 MG/DL (8.8-10.2); CARBON DIOXIDE LEVEL 29 MEQ/L (21-32); CHLORIDE LEVEL 107 MEQ/L (98-107); CREATININE FOR GFR 0.82 MG/DL (0.55-1.30); ERYTHROCYTE SEDIMENTATION RATE 49 mm/hr (0-30); GLOMERULAR FILTRATION RATE > 60.0 (>45); GLUCOSE, FASTING 125 MG/DL (70-100); POTASSIUM SERUM 4.5 MEQ/L (3.5-5.1); SODIUM LEVEL 139 MEQ/L (136-145)
[2019-09-08] MEDS ORDERED: NORCO, ANEXSIA 5/325MG TABLET (HYDROcodone/ACETAMINOPHEN) PO ONE (10:30)
[2019-09-08] MEDS ORDERED: MUPIROCIN 2% OINT 22 GM TUBE TOP ONE (11:00)
[2019-09-08 12:12] VITALS: BP 150/78
== END 2019-09-08 13:16 | disposition home or self-care (01) ==
LOC: M ED 07:15
DX: I83.019 Varicose veins of right lower extremity with ulcer of unspecified site (principal); I83.029 Varicose veins of left lower extremity with ulcer of unspecified site; E11.51 Type 2 diabetes mellitus with diabetic peripheral angiopathy without gangrene; I73.9 Peripheral vascular disease, unspecified; K21.9 Gastro-esophageal reflux disease without esophagitis; Z91.013 Allergy to seafood; Z91.011 Allergy to milk products; Z79.51 Long term (current) use of inhaled steroids; Z79.84 Long term (current) use of oral hypoglycemic drugs; Z79.899 Other long term (current) drug therapy
CPT/HCPCS: 76882; 80048; 85025; 85379; 85652; 86140; 93970; 96374; 99284; J1885

== ENCOUNTER → 2019-10-11 | Outpatient (CLI) | payer OTHER ==
[~2019-10-11] MED LIST changes: +METF500T13
--- NOTE | 2019-10-11 11:51 | REP ---
Clinical: Bilateral lower extremity ulcers. Technique: Real time minor scale and color Doppler evaluation of the bilateral lower extremity deep venous structures and superficial venous structures for the evaluation of reflux. Findings: Doppler ultrasound examination of the bilateral lower extremities demonstrates no evidence for deep venous thrombosis. No evidence for reflux through the deep or superficial venous systems. Impression: Negative examination. No evidence for deep venous thrombosis. No evidence for reflux disease. Electronically Signed by Franklyn Gaffney MD 10/11/2019 11:43 A
== END ==
LOC: M RAD 10:15
PROVIDERS: ATTEND Surgery
DX: L97.812 Non-pressure chronic ulcer of other part of right lower leg with fat layer exposed (principal); L97.822 Non-pressure chronic ulcer of other part of left lower leg with fat layer exposed

== ENCOUNTER → 2019-12-05 | Outpatient (CLI) | payer OTHER ==
[~2019-12-05] MED LIST changes: +OMEP1CAP73 PO; -OMEP20CA4 PO
--- NOTE | 2019-12-24 04:57 | ECWPNPC ---
PATIENT NAME: TREVOR ELLISON : 1955 GENDER: FEMALE VISIT DATE: 12/05/2019 DISCHARGE DATE: 12/05/19 1140 VISIT LOCKED DATE TIME: PHYSICIAN: RYAN YATES RESOURCE: RYAN YATES REASON FOR APPOINTMENT 1. VENOUS STASIS ULCER DISEASE ,SEEKING [facility]NA[facility] FOR SEVERE,LOWER EXTREMITY PAIN DURING DRESSING CHANGES. HISTORY OF PRESENT ILLNESS FALL RISK SCREENIN-YEAR-OLD FEMALE BEING REFERRED BY PRIMARY CARE IVET VILLALOBOS TO EVALUATE LOWER EXTREMITY PAIN DURING DRESSING CHANGES WITH A HISTORY OF VENOUS STASIS ULCER DISEASE. THIS BEGAN APPROXIMATELY 3 MONTHS AGO. CURRENTLY SEEING MECHANICAL ENGINEERING ADVISOR TWICE A WEEK FOR DRESSING CHANGES. HAS PERCOCET 5/325 THAT SHE CAN TAKE EVERY 6 HOURS NEEDED, BUT PRIMARY CARE IS NOT ABLE TO SUSTAIN THIS FOR THE LENGTH OF TIME THAT SHE WOULD NEED TO USE THIS BEFORE AND AFTER DRESSING CHANGES OVER THE NEXT FEW MONTHS. RATING PAIN LEVEL A 5/10 VAS. SCREENING :NO FALLS REPORTED IN THE LAST YEAR GENERAL: -. PAIN SCREENING: PATIENT HAS A COMPLAINT OF ACUTE OR CHRONIC PAIN :YES LOCATION OF PAIN: RIGHT LEG INTENSITY OF PAIN (SCALE OF 1 TO 10):6 NURSING NOTE: -. CURRENT MEDICATIONS TAKING CHLORTHALIDONE 25 MG TABLET 1/2 TABLET IN THE MORNING WITH FOOD ORALLY ONCE A DAY TAKING ZYRTEC 10 MG TABLET 1 TABLET NEEDED ORALLY ONCE A DAY TAKING OMEPRAZOLE 20 MG TABLET DELAYED RELEASE 2 TABLET ORALLY ONCE A DAY TAKING METFORMIN HCL 500 MG TABLET 1 TABLET WITH A MEAL ORALLY ONCE A DAY TAKING METRONIDAZOLE 0.75 % CREAM 1 APPLICATION TO AFFECTED AREA EXTERNALLY QPM AFTER WASH TO FACE TAKING PERCOCET 5-325 MG TABLET 1 TABLET NEEDED ORALLY EVERY 6 HRS, NOTES: ONLY FOR SEVERE PAIN TAKING GABAPENTIN 600 MG TABLET 1 TABLET ORALLY THREE TIMES DAILY NOT-TAKING BACTRIM DS 800-160 MG TABLET 1 TABLET ORALLY TWICE A DAY NOT-TAKING FLUTICASONE PROPIONATE 50 MCG/ACT SUSPENSION 1 SPRAY IN EACH NOSTRIL NASALLY ONCE A DAY NOT-TAKING VENTOLIN HFA 108 (90 BASE) MCG/ACT AEROSOL SOLUTION 2 PUFFS NEEDED INHALATION EVERY 4 HOURS NEEDED NOT-TAKING TYLENOL EXTRA STRENGTH 500 MG TABLET 2 TABLETS NEEDED ORALLY EVERY 8 HRS NOT-TAKING NAPROXEN 500 MG TABLET 1 TABLET WITH FOOD OR MILK NEEDED ORALLY EVERY 12 HRS NOT-TAKING KLARON 10 % LOTION 1 APPLICATION TO AFFECTED AREA EXTERNALLY QAM AFTER WASH TO FACE NOT-TAKING LYRICA 100 MG CAPSULE 1 CAPSULE ORALLY ONCE A DAY MEDICATION LIST REVIEWED AND RECONCILED WITH THE PATIENT PAST MEDICAL HISTORY GERD ALLERGIES ASTHMA ROSACEA (DR. AL) OSTEOARTHRITIS: BILATERAL KNEES (SEES EMILY, DR. KELSEY) CHRONIC BILATERAL LEG EDEMA (POOR COMPLIANCE WITH FUROSEMIDE) BLADE (RECENT SLEEP STUDY 05/2019, SEES DR. TYLER OF NEUROLOGY); HISTORY OF ACUTE HYPOXEMIC RESPIRATORY FAILURE REQUIRING INTUBATION S/P LEFT KNEE REPLACEMENT ABNORMAL EKG W/O EVIDENCE OF CT/MYOCARDIAL PERFUSION DEFECT, NUCLEAR STRESS 03/06/17 WITH EF 75% (HEART FAILURE WITH PRESERVED EF), SEES DWAYNE GARAY/DR. JORDAN ELEVATED BP W/O DX OF HTN T2DM, GOAL A1C < 6.5 HX DEPRESSION, TREATED WITH COUNSELLING EMPHYSEMA ALLERGIES DOXYCYCLINE (ROSACEA): DIARRHEA - ALLERGY SURGICAL HISTORY 3 C-SECTIONS CARPAL TUNNEL: 2009 LEFT HAND CARACT SURGERY OU 10/05/10/26/2016 TONSILLECTOMY 1960 TUBAL LIGATION 1985 RETINA SURGERY LEFT EYE SEPTEMBER 07, 2018 LEFT KNEE REPLACEMENT 01/2019 FAMILY HISTORY FATHER: 75 YRS, DEMENTIA, KNEE PROBLEMS, IRREGULAR HEART BEAT, COPD MOTHER: 83 YRS, COPD, CHF SIBLINGS: ALIVE, CANCER, BREAST SISTER AGE 49 SON(S): ALIVE DAUGHTER(S): ALIVE PATERNAL AUNT: , CANCER, BREAST 3 SON(S) , 3 DAUGHTER(S) . 2 PATERNAL COUSINS AND SISTER WITH BREAST CANCERPT WITH PRECANCEROUS ON FACE. SOCIAL HISTORY GENERAL: TOBACCO USE ARE YOU A:NONSMOKER NEVER SMOKER HIV / HEP-C SCREENING HIV TEST OFFERED TO PATIENT:YES DATE OFFERED:07/22/2019 TEST ACCEPTED:NO REASON:PATIENT DECLINED BROCHURE PROVIDED TO PATIENTYES OTHERS AT HOME: 1 GRANDKID IN THE HOME, MULTIPLE CATS AND 2 DOGS. EDUCATION LEVEL OF EDUCATION:HIGH SCHOOL DIET: REGULAR. LANGUAGE LANGUAGES SPOKEN:PORTUGUESE BMI CARE GOAL FOLLOW-UP ABOVE NORMAL BMI FOLLOW-UPGIVING ENCOURAGEMENT TO EXERCISE RECREATIONAL DRUG USE DENIES. EXERCISE: NO REGULAR EXERCISE. LEARNING BARRIERS / SPECIAL NEEDS CHANGE FROM LAST VISIT?YES BARRIERS TO LEARNING?NO HEARING IMPAIRED?NO VISION IMPAIRED?YES COGNITIVELY IMPAIRED?NO :CORRECTIVE LENSES READINESS TO LEARN?YES LEARNING PREFERENCES?NO LEARNING CAPABILITIES PRESENT?YES EMOTIONAL BARRIERS?NO SPECIAL DEVICES?YES :CANE HEARING THERAPIST NEEDED?NO LATEX QUESTIONNAIRE LATEX ALLERGY : HAVE YOU EVER DEVELOPED ANY TYPE OF REACTION AFTER HANDLING LATEX PRODUCTS SUCH RUBBER GLOVES, CONDOMS, DIAPHRAGMS, BALLOONS, SOCKS, OR UNDERWEAR?NO LATEX ALLERGY : HAVE YOU EVER DEVELOPED ANY TYPE OF REACTION DURING OR AFTER DENTAL APPOINTMENT, VAGINAL/RECTAL EXAMINATION, SURGICAL PROCEDURE, OR ANY OTHER EXPOSURE?NO DATE ASKED : 05/31/2019 LATEX RISK : HAVE YOU EVER HAD ANY DIFFICULTY BREATHING OR HIVES AFTER EATING OR HANDLING ANY FRUITS, OR VEGETABLES; SUCH KIWI, BANANAS, STONE FRUITS, OR CHESTNUTSNO LATEX RISK : DO YOU HAVE A PREVIOUS PERSONAL HISTORY OF MORE THAN NINE SURGERIES, SPINA BIFIDA, OR REPEATED CATHERIZATIONS? NO LATEX RISK : ARE YOU FREQUENTLY EXPOSED TO LATEX PRODUCTS IN YOUR OCCUPATION?NO CAFFEINE CAFFEINE USE?YES HOW OFTEN AND HOW MUCH? 1 PER DAY MORMONISM MORMONISM NO CHRISTIAN BELIEFS THAT WOULD IMPACT HEALTH CARE. MARITAL STATUS: . 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 HOSPITALIZATION/MAJOR DIAGNOSTIC PROCEDURE EPILEPSY TITRATING OFF OF PHENOBABRITAL MANY YEARS AGO TOTAL KNEE 01/2019 REVIEW OF SYSTEMS REVIEWED BY: PROVIDER: RYAN ESTEVES . CONSTITUTIONAL: ANY CHANGE IN YOUR MEDICAL CONDITION? NO . CHILLS NO . FEVER NO . INFECTION: DO YOU HAVE NEW INFECTIONS? NO . DO YOU HAVE HISTORY OF MRSA? NO . MUSCULOSKELETAL: ANY NEW PATTERNS OF PAIN OR NUMBNESS? YES, PAIN INCRESES AND DECREASES. INCREASES WITH DRESSING CHANGES . SYTEMIC LUPUS NO . GASTROENTEROLOGY: ANY NEW CHANGE IN BOWEL CONTROL? NO . BARRETTS ESOPHAGUS NO . CIRRHOSIS NO . HEPATITIS NO . LIVER FAILURE NO . ACID REFLUX YES . UNEXPLAINED WEIGHT LOSS NO . GENITOURINARY: ANY NEW CHANGE IN BLADDER CONTROL? NO . IS THERE A CHANCE YOU COULD BE ? NO . HEMATOLOGY/LYMPH: DO YOU TAKE ANY BLOOD THINNERS? (FOR EXAMPLE- COUMADIN, PLAVIX, AGGRENOX, PLATEL, PRADAXA, OR XARELTO) NO . WHEN WAS YOUR LAST DOSE? DATE: TIME: . LOW PLATELET COUNT NO . SICKLE CELL DISEASE NO . VON WILLIEBRANDS NO . FACTOR V LEIDEN NO . THALLASEMIA NO . ANEMIA NO . EASY BRUISING NO . NEUROLOGY: HAVE YOU FALLEN IN THE PAST 12 MONTHS? NO . ANY NEW EXTREMITY NUMBNESS OR WEAKNESS? NO . HEAD INJURY NO . DEMENTIA NO . CEREBRAL PALSY NO . MULTIPLE SCLEROSIS NO . DIZZINESS NO . HEADACHE NO . STROKES NO . VERTIGO NO . CARDIOLOGY: DO YOU HAVE A PACEMAKER OR DEFIBRILLATOR? NO . ANGINA NO . HEART ATTACK NO . HEART SURGERY NO . CONGESTIVE HEART FAILURE/FLUID OVERLOAD NO . CHEST PAIN NO . HIGH BLOOD PRESSURE ON MEDICATION(S) . IRREGULAR HEART BEAT NO . RESPIRATORY: HAVE YOU BEEN SICK IN THE PAST WEEK? NO . FEVER NO . FLU LIKE SYMPTOMS? NO . CPAP YES . BYPAP NO . ASTHMA YES . EMPHYSEMA NO . CHRONIC LUNG DISEASES YES . SHORTNESS OF BREATH ON EXERTION NO . COUGH NO . SNORING NO . INTEGUMENTARY: DO YOU HAVE ANY RASHES OR OPEN SORES? YES, BILAT LOWER LEGS . ALLERGIC/IMMUNO: ARE YOU ALLERGIC TO IV DYE? NO . ANY NEW ALLERGIES? NO . PSYCHIATRIC: DO YOU HAVE THOUGHTS OF HURTING YOURSELF OR SOMEONE ELSE? NO . ARE YOU ABUSED, NEGLECTED, OR IN AN UNSAFE ENVIRONMENT? NO . ENDOCRINOLOGY: ARE YOU DIABETIC? YES . THYROID DISORDER NO . OTHER: DO YOU NEED ANY PRESCRIPTIONS? NO . IF YES, PLEASE LIST: ____ . ANY NEW PROBLEMS WITH YOUR MEDICATIONS? YES, RADHA STARTED FALLING OVER SIDEWAYS, FORGETFULNESS, DIZZINESS . WHEN DID YOU LAST EAT? ____ . WHEN DID YOU LAST DRINK? ____ . WHAT DID YOU LAST DRINK? ____ . NAME OF PERSON DRIVING YOU HOME? ____ . DO YOU HAVE ANY OTHER QUESTIONS OR CONCERNS NO . VITAL SIGNS WT 265.6 LBS, HT 62.5 IN, BMI 47.80 INDEX, BP 128/78 MM HG, HR 85 /MIN, RR 20 /MIN, TEMP 98.7 F, OXYGEN SAT % 97, SAFE IN ENV? (Y/N) YES, PAIN SCALE 6A. ELIU POLO. EXAMINATION GENERAL EXAMINATION: GENERAL AWAKE,ALERT ,PLEASANT . PSYCH AFFECT NORMAL . NECK: TRACHEA MIDLINE. NO CERVICAL OR SUPRACLAVICULAR LYMPHADENOPATHY NOTED. LUNGS: LUNG SÁNCHEZ ARE CLEAR TO AUSCULTATION BILATERALLY. GOOD MOVEMENT OF AIR . HEART: S1, S2 IN A REGULAR RATE AND RHYTHM. NO SIGNIFICANT MURMURS, RUBS OR GALLOPS NOTED . ABDOMEN: SOFT/NONTENDER. EXTREMITIES:LOWER EXTREMITY BANDAGES NOTED BILATERALLY . SKIN: NO RASH OR SKIN LESIONS. ASSESSMENTS PAIN IN LEFT LEG - M79.605 (PRIMARY) PAIN IN RIGHT LEG - M79.604 TREATMENT PAIN IN LEFT LEG START PERCOCET TABLET, 10-325 MG, 1 TO 2, ORALLY, 1 TAB PRE DRESSING CHANGE AND 1 TO 2 TAB POST DRSG CHANGE MDD3 #30 TAB SHOULD LAST 30 DAYS, 30 DAYS, 30, REFILLS 0 NOTES: PATIENT IS ACCOMPANIED IN THE EXAM ROOM WITH HER DAUGHTER WHO IS HER PRIMARY WHARF HAND. EDUCATED REGARDING THE RISKS INVOLVED WITH OBSTRUCTIVE SLEEP APNEA AND USE OF NARCOTIC PAIN MEDICATIONS. CURRENTLY SHE IS USING PERCOCET 5/325 ONE TABLET BEFORE DRESSING CHANGE AND 2 TABLETS AFTER DRESSING CHANGE 2 TIMES A WEEK WITH MINIMAL IMPROVEMENT. TODAY I HAVE ADVISED HER TO BE COMPLIANT WITH WEARING CPAP, EVEN FOR NAPS. THEY VOICED UNDERSTANDING REGARDING RISKS ASSOCIATED WITH USING NARCOTICS AND BLADE., ISTOP REGISTRY REVIEWED AND DEMONSTRATES COMPLLIANCE. (REF # ) BRINGS IN MEDICATIONS WHICH IS APPROPRIATE FOR WHAT WAS DISPENSED. RECENT URINE TOXICOLOGY REVIEWED. NO UNAUTHORIZED MEDICATIONS. NO ILLICIT SUBSTANCES AND PRESCRIBED MEDICATIONS WERE PRESENT. , RISKS OF NARCOTIC/OPIOD MEDICATIONS INCLUDES BUT IS NOT LIMITED TO RISK OF DEPENDANCE/DEVELOPMENT OF ADDICTION, MOOD DISTURBANCE AND DEPRESSION, OSTEOPOROSIS, HORMONAL AND LABIDAL CHANGES, RESPIRATORY DEPRESSION AND . PATIENT IS ADVISED NOT TO DRIVE OR DRINK ALCOHOL WHILE ON THESE MEDICATIONS, [facility] NARCOTIC AGREEMENT WAS REVIEWED AND SIGNED TODAY BY THE PATIENT. SEE ATTACHED DOCUMENT FOR FULL DETAILS; SPECIFIC ISSUES WERE REVIEWED: 1) KEEP PAIN MEDS IN THEIR ORIGINAL BOTTLES AND ANY WEEKLY PLANNERS ARE TO BE BROUGHT TO THE PAIN CENTER AT EVERY VISIT. 2) THE PATIENT IS NOT TO INCREASE DOSING OR TIMING OF THEIR PAIN MEDICATION WITHOUT SPECIFIC DIRECTION OF THEIR PAIN CENTERPROVIDER (NOT ER OR OTHER PROVIDERS). 3) ALL PAIN MEDS ARE TO BE KEPT SECURED, IN A LOCKED BOX. 4) NO PAIN MEDS ARE TO BE SHARED WITH ANY OTHER PERSON FOR ANY REASON. 5) NO PAIN MEDS MAY BE TAKEN FROM ANY FRIENDS OR RELATIVES FOR ANY REASON 6) NO MEDS OR SUBSTANCES WHICH ARE NOT LEGAL ARE TO BE USED- NO MARIJUANA, NO COCAINE, AMPHETAMINES, HEROIN, OR OTHERS ARE EVER TO BE USED. 7)URINE TESTING IS DONE TO ACCOUNT FOR MEDS AND SUBSTANCES BEING TAKEN AND WILL BE DONE RANDOMLY. PROCEDURE CODES FA211 ESTABILISHED PATIENT [facility] FACILITY CHARGE DISPOSITION & COMMUNICATION FOLLOW UP 4-6WKS (REASON: MED MGMNT) ELECTRONICALLY SIGNED BY DANIELITO RAJAN ON 12/23/2019 AT 10:46 AM EST DISCLAIMER : THIS IS A VISIT SUMMARY EXTRACTED FROM THE [employer] CHART. IT IS NOT A COPY OF THE [employer] PROGRESS NOTE. ORQUIDEA
== END ==
LOC: M PAIN 10:00
PROVIDERS: ATTEND Nurse Practitioner Family
DX: M79.605 Pain in left leg (principal); M79.604 Pain in right leg; E11.9 Type 2 diabetes mellitus without complications; K21.9 Gastro-esophageal reflux disease without esophagitis; Z79.84 Long term (current) use of oral hypoglycemic drugs; Z79.891 Long term (current) use of opiate analgesic; Z79.899 Other long term (current) drug therapy; Z88.1 Allergy status to other antibiotic agents

== ENCOUNTER → 2019-12-19 | Outpatient (CLI) | payer OTHER ==
--- NOTE | 2020-01-07 04:13 | ECWPNPC ---
PATIENT NAME: TREVOR ELLISON : 1955 GENDER: FEMALE VISIT DATE: 12/19/2019 DISCHARGE DATE: 12/19/19 1139 VISIT LOCKED DATE TIME: PHYSICIAN: RYAN YATES RESOURCE: RYAN YATES REASON FOR APPOINTMENT 1. 4 TO 6 WEEK HISTORY OF PRESENT ILLNESS HISTORY OF PRESENT ILLNESS: HERE FOR FOLLOW-UP / MEDICINE MANAGEMENT FOR PAIN ASSOCIATED WITH DRESSING CHANGE OF STASIS ULCERS, BILATERAL LOWER EXTREMITIES. INITIAL VISIT WAS A FEW WEEKS AGO. SHE WAS PRESCRIBED OXYCODONE 10/325 ONE TABLET PRE-AND POST DRESSING CHANGE TWICE A WEEK. THIS IS EFFECTIVE FOR HER. DENIES SIDE EFFECTS. RATING PAIN LEVEL A 4/10 VAS. PAIN THE PATIENT DESCRIBES THE PAIN... FALL RISK SCREENING: SCREENING :NO FALLS REPORTED IN THE LAST YEAR CURRENT MEDICATIONS TAKING CHLORTHALIDONE 25 MG TABLET 1/2 TABLET IN THE MORNING WITH FOOD ORALLY ONCE A DAY TAKING ZYRTEC 10 MG TABLET 1 TABLET NEEDED ORALLY ONCE A DAY TAKING OMEPRAZOLE 20 MG TABLET DELAYED RELEASE 2 TABLET ORALLY ONCE A DAY TAKING METFORMIN HCL 500 MG TABLET 1 TABLET WITH A MEAL ORALLY ONCE A DAY TAKING METRONIDAZOLE 0.75 % CREAM 1 APPLICATION TO AFFECTED AREA EXTERNALLY QPM AFTER WASH TO FACE TAKING PERCOCET 5-325 MG TABLET 1 TABLET NEEDED ORALLY EVERY 6 HRS, NOTES: ONLY FOR SEVERE PAIN TAKING GABAPENTIN 600 MG TABLET 1 TABLET ORALLY THREE TIMES DAILY TAKING PERCOCET 10-325 MG TABLET 1 TO 2 ORALLY 1 TAB PRE DRESSING CHANGE AND 1 TO 2 TAB POST DRSG CHANGE MDD3 #30 TAB SHOULD LAST 30 DAYS NOT-TAKING BACTRIM DS 800-160 MG TABLET 1 TABLET ORALLY TWICE A DAY NOT-TAKING FLUTICASONE PROPIONATE 50 MCG/ACT SUSPENSION 1 SPRAY IN EACH NOSTRIL NASALLY ONCE A DAY NOT-TAKING VENTOLIN HFA 108 (90 BASE) MCG/ACT AEROSOL SOLUTION 2 PUFFS NEEDED INHALATION EVERY 4 HOURS NEEDED NOT-TAKING TYLENOL EXTRA STRENGTH 500 MG TABLET 2 TABLETS NEEDED ORALLY EVERY 8 HRS NOT-TAKING NAPROXEN 500 MG TABLET 1 TABLET WITH FOOD OR MILK NEEDED ORALLY EVERY 12 HRS NOT-TAKING KLARON 10 % LOTION 1 APPLICATION TO AFFECTED AREA EXTERNALLY QAM AFTER WASH TO FACE NOT-TAKING LYRICA 100 MG CAPSULE 1 CAPSULE ORALLY ONCE A DAY MEDICATION LIST REVIEWED AND RECONCILED WITH THE PATIENT PAST MEDICAL HISTORY GERD ALLERGIES ASTHMA ROSACEA (DR. AL) OSTEOARTHRITIS: BILATERAL KNEES (SEES EMILY, DR. KELSEY) CHRONIC BILATERAL LEG EDEMA (POOR COMPLIANCE WITH FUROSEMIDE) BLADE (RECENT SLEEP STUDY 05/2019, SEES DR. TYLER OF NEUROLOGY); HISTORY OF ACUTE HYPOXEMIC RESPIRATORY FAILURE REQUIRING INTUBATION S/P LEFT KNEE REPLACEMENT ABNORMAL EKG W/O EVIDENCE OF NM/MYOCARDIAL PERFUSION DEFECT, NUCLEAR STRESS 03/06/17 WITH EF 75% (HEART FAILURE WITH PRESERVED EF), SEES DWAYNE GARAY/DR. JORDAN ELEVATED BP W/O DX OF HTN T2DM, GOAL A1C < 6.5 HX DEPRESSION, TREATED WITH COUNSELLING EMPHYSEMA ALLERGIES DOXYCYCLINE (ROSACEA): DIARRHEA - ALLERGY SURGICAL HISTORY 3 C-SECTIONS CARPAL TUNNEL: 2009 LEFT HAND CARACT SURGERY OU 10/05/10/26/2016 TONSILLECTOMY 1959 TUBAL LIGATION 1985 RETINA SURGERY LEFT EYE SEPTEMBER 07, 2018 LEFT KNEE REPLACEMENT 01/2019 FAMILY HISTORY FATHER: 75 YRS, DEMENTIA, KNEE PROBLEMS, IRREGULAR HEART BEAT, COPD MOTHER: 83 YRS, COPD, CHF SIBLINGS: ALIVE, CANCER, BREAST SISTER AGE 49 SON(S): ALIVE DAUGHTER(S): ALIVE PATERNAL AUNT: , CANCER, BREAST 3 SON(S) , 3 DAUGHTER(S) . 2 PATERNAL COUSINS AND SISTER WITH BREAST CANCERPT WITH PRECANCEROUS ON FACE. SOCIAL HISTORY GENERAL: TOBACCO USE ARE YOU A:NONSMOKER NEVER SMOKER HIV / HEP-C SCREENING HIV TEST OFFERED TO PATIENT:YES DATE OFFERED:07/22/2019 TEST ACCEPTED:NO REASON:PATIENT DECLINED BROCHURE PROVIDED TO PATIENTYES OTHERS AT HOME: 1 GRANDKID IN THE HOME, MULTIPLE CATS AND 2 DOGS. EDUCATION LEVEL OF EDUCATION:HIGH SCHOOL DIET: REGULAR. LANGUAGE LANGUAGES SPOKEN:SLOVENIAN BMI CARE GOAL FOLLOW-UP ABOVE NORMAL BMI FOLLOW-UPGIVING ENCOURAGEMENT TO EXERCISE RECREATIONAL DRUG USE DENIES. EXERCISE: NO REGULAR EXERCISE. LEARNING BARRIERS / SPECIAL NEEDS CHANGE FROM LAST VISIT?YES BARRIERS TO LEARNING?NO HEARING IMPAIRED?NO VISION IMPAIRED?YES COGNITIVELY IMPAIRED?NO :CORRECTIVE LENSES READINESS TO LEARN?YES LEARNING PREFERENCES?NO LEARNING CAPABILITIES PRESENT?YES EMOTIONAL BARRIERS?NO SPECIAL DEVICES?YES :CANE ICT PROJECT MANAGER NEEDED?NO PAIN CLINIC PFS, CLERGY, PUBLIC HEALTH REFERRALS HAS THE PATIENT BEEN EDUCATED REGARDING HIS/HER PLAN OF CARE?YES HAS THE PATIENT BEEN EDUCATED REGARDING PAIN, THE RISK FOR PAIN, THE IMPORTANCE OF EFFECTIVE PAIN MANAGEMENT, AND THE PAIN ASSESSMENT PROCESS?YES LATEX QUESTIONNAIRE LATEX ALLERGY : HAVE YOU EVER DEVELOPED ANY TYPE OF REACTION AFTER HANDLING LATEX PRODUCTS SUCH RUBBER GLOVES, CONDOMS, DIAPHRAGMS, BALLOONS, SOCKS, OR UNDERWEAR?NO LATEX ALLERGY : HAVE YOU EVER DEVELOPED ANY TYPE OF REACTION DURING OR AFTER DENTAL APPOINTMENT, VAGINAL/RECTAL EXAMINATION, SURGICAL PROCEDURE, OR ANY OTHER EXPOSURE?NO LATEX RISK : HAVE YOU EVER HAD ANY DIFFICULTY BREATHING OR HIVES AFTER EATING OR HANDLING ANY FRUITS, OR VEGETABLES; SUCH KIWI, BANANAS, STONE FRUITS, OR CHESTNUTSNO LATEX RISK : DO YOU HAVE A PREVIOUS PERSONAL HISTORY OF MORE THAN NINE SURGERIES, SPINA BIFIDA, OR REPEATED CATHERIZATIONS? NO LATEX RISK : ARE YOU FREQUENTLY EXPOSED TO LATEX PRODUCTS IN YOUR OCCUPATION?NO DATE ASKED : 05/31/2019 CAFFEINE CAFFEINE USE?YES HOW OFTEN AND HOW MUCH? 1 PER DAY ADVANCE DIRECTIVE ADVANCE DIRECTIVE DISCUSSED WITH PATIENT:YES HCP - DAUGHTERS JOAN AND LORENZO YARSANI YARSANI NO ANGLICAN BELIEFS THAT WOULD IMPACT HEALTH CARE. MARITAL STATUS: . ALCOHOL SCREENING DID YOU HAVE A DRINK CONTAINING ALCOHOL IN THE PAST YEAR?NO POINTS0 INTERPRETATIONNEGATIVE OCCUPATION: [employer]. REVIEWED WITH PATIENT 12/19/2019 1050 JS. HOSPITALIZATION/MAJOR DIAGNOSTIC PROCEDURE EPILEPSY TITRATING OFF OF PHENOBABRITAL MANY YEARS AGO TOTAL KNEE 01/2019 REVIEW OF SYSTEMS REVIEWED BY: PROVIDER: RYAN ESTEVES . CONSTITUTIONAL: ANY CHANGE IN YOUR MEDICAL CONDITION? NO . CHILLS NO . FEVER NO . INFECTION: DO YOU HAVE NEW INFECTIONS? NO . DO YOU HAVE HISTORY OF MRSA? NO . MUSCULOSKELETAL: ANY NEW PATTERNS OF PAIN OR NUMBNESS? YES, STATES PAIN IMPROVED SOME WITH THE INCREASED DOSE OF PERCOCET . GASTROENTEROLOGY: ANY NEW CHANGE IN BOWEL CONTROL? NO . GENITOURINARY: ANY NEW CHANGE IN BLADDER CONTROL? NO . IS THERE A CHANCE YOU COULD BE ? NO . HEMATOLOGY/LYMPH: DO YOU TAKE ANY BLOOD THINNERS? (FOR EXAMPLE- COUMADIN, PLAVIX, AGGRENOX, PLATEL, PRADAXA, OR XARELTO) NO . WHEN WAS YOUR LAST DOSE? DATE: TIME: . NEUROLOGY: HAVE YOU FALLEN IN THE PAST 12 MONTHS? NO . ANY NEW EXTREMITY NUMBNESS OR WEAKNESS? NO . CARDIOLOGY: DO YOU HAVE A PACEMAKER OR DEFIBRILLATOR? NO . RESPIRATORY: HAVE YOU BEEN SICK IN THE PAST WEEK? NO . FEVER NO . FLU LIKE SYMPTOMS? NO . COUGH NO . INTEGUMENTARY: DO YOU HAVE ANY RASHES OR OPEN SORES? YES, TO FEET . ALLERGIC/IMMUNO: ARE YOU ALLERGIC TO IV DYE? NO . ANY NEW ALLERGIES? NO . PSYCHIATRIC: DO YOU HAVE THOUGHTS OF HURTING YOURSELF OR SOMEONE ELSE? NO . ARE YOU ABUSED, NEGLECTED, OR IN AN UNSAFE ENVIRONMENT? NO . ENDOCRINOLOGY: ARE YOU DIABETIC? YES . OTHER: DO YOU NEED ANY PRESCRIPTIONS? YES . IF YES, PLEASE LIST: ____PERCOCET . ANY NEW PROBLEMS WITH YOUR MEDICATIONS? NO . WHEN DID YOU LAST EAT? ____ . WHEN DID YOU LAST DRINK? ____ . WHAT DID YOU LAST DRINK? ____ . NAME OF PERSON DRIVING YOU HOME? ____ . DO YOU HAVE ANY OTHER QUESTIONS OR CONCERNS NO . VITAL SIGNS WT 268.0 LBS, HT 62.5 IN, BMI 48.23 INDEX, BP 126/60 MM HG, HR 78 /MIN, RR 19 /MIN, TEMP 97.1 F, OXYGEN SAT % 96%, SAFE IN ENV? (Y/N) YES, NA INITIALS MS 1047, REVIEWED BY: DIANA. EXAMINATION GENERAL EXAMINATION: GENERALAWAKE,ALERT ,PLEASANT . PSYCHAFFECT NORMAL . LUNGS:LUNG SÁNCHEZ ARE CLEAR TO AUSCULTATION BILATERALLY. GOOD MOVEMENT OF AIR . HEART:S1, S2 IN A REGULAR RATE AND RHYTHM. NO SIGNIFICANT MURMURS, RUBS OR GALLOPS NOTED . ASSESSMENTS WOUND OF RIGHT LOWER EXTREMITY, SEQUELA - S81.801S (PRIMARY) PAIN IN LEFT LEG - M79.605 TREATMENT WOUND OF RIGHT LOWER EXTREMITY, SEQUELA REFILL PERCOCET TABLET, 5-325 MG, 1 TABLET NEEDED, ORALLY, 1 TAB PRE AND POST DRSG CHANGE MDD2 #28 TABS FOR 30 DAYS SUPPLY, 30 DAYS, 28, REFILLS 0, NOTES: ONLY FOR SEVERE PAIN NOTES: DUE TO CHRONIC NEED FOR PAIN MEDICATION PRE-AND POST DRESSING CHANGE THAT COULD GO ON FOR THE NEXT FEW MONTHS. I'M RECOMMENDING A 30 DAY SUPPLY OF OXYCODONE 10/325 7 TABLETS FOR A ONE-WEEK SUPPLY OR 28 TABLETS FOR A 30 DAY SUPPLY.ADDENDUM-DELETE REFILL PERCOCET 5/325, ISTOP REGISTRY REVIEWED AND DEMONSTRATES COMPLLIANCE. (REF # ) BRINGS IN MEDICATIONS WHICH IS APPROPRIATE FOR WHAT WAS DISPENSED. RECENT URINE TOXICOLOGY REVIEWED. NO UNAUTHORIZED MEDICATIONS. NO ILLICIT SUBSTANCES AND PRESCRIBED MEDICATIONS WERE PRESENT. PROCEDURE CODES FA211 ESTABILISHED PATIENT [facility] CHARGE DISPOSITION & COMMUNICATION FOLLOW UP 2 MONTHS (REASON: MED MGMNT) ELECTRONICALLY SIGNED BY DANIELITO RAJAN ON 01/06/2020 AT 09:56 AM EST DISCLAIMER : THIS IS A VISIT SUMMARY EXTRACTED FROM THE [employer] CHART. IT IS NOT A COPY OF THE [employer] PROGRESS NOTE. ORQUIDEA
== END ==
LOC: M PAIN 10:15
PROVIDERS: ATTEND Nurse Practitioner Family
DX: M79.605 Pain in left leg (principal); S81.801S Unspecified open wound, right lower leg, sequela

== ENCOUNTER → 2020-01-23 | Outpatient (REF) | payer OTHER ==
[2020-01-23 12:35] LABS: BLOOD UREA NITROGEN 23 MG/DL (7-18); CALCIUM LEVEL 8.9 MG/DL (8.8-10.2); CARBON DIOXIDE LEVEL 33 MEQ/L (21-32); CHLORIDE LEVEL 107 MEQ/L (98-107); CREATININE FOR GFR 0.78 MG/DL (0.55-1.30); GLOMERULAR FILTRATION RATE > 60.0 (>45); GLUCOSE, FASTING 62 MG/DL (70-100); POTASSIUM SERUM 4.4 MEQ/L (3.5-5.1); SODIUM LEVEL 142 MEQ/L (136-145)
[2020-01-23 13:02] LABS: HEMOGLOBIN A1c 6.4 %
== END ==
LOC: M LABDRWAD 11:48
PROVIDERS: ATTEND Obstetrics & Gynecology
DX: E11.9 Type 2 diabetes mellitus without complications (principal); Z79.899 Other long term (current) drug therapy

== ENCOUNTER → 2020-01-24 | Outpatient (REF) | payer OTHER ==
[2020-01-24 16:16] LABS: MAU/CREAT RATIO 30.9 MCG/MG (0.0-30.0)
== END ==
LOC: M SFHCPLAZ 15:25
PROVIDERS: ATTEND Obstetrics & Gynecology
DX: E11.9 Type 2 diabetes mellitus without complications (principal); Z79.899 Other long term (current) drug therapy

== ENCOUNTER → 2020-01-28 | Outpatient (CLI) | payer OTHER ==
--- NOTE | 2020-02-12 03:40 | ECWPNPC ---
PATIENT NAME: TREVOR ELLISON : 1955 GENDER: FEMALE VISIT DATE: 01/28/2020 DISCHARGE DATE: 01/28/20 1141 VISIT LOCKED DATE TIME: PHYSICIAN: RYAN YATES RESOURCE: RYAN YATES REASON FOR APPOINTMENT 1. 6 WEEK HISTORY OF PRESENT ILLNESS HISTORY OF PRESENT ILLNESS: HERE FOR FOLLOW-UP AND MEDICINE MANAGEMENT OF PERSISTENT RIGHT LOWER EXTREMITY ULCER/STASIS PAIN MANAGEMENT PRE AND POST TREATMENT. LATELY, SHE'S BEEN EXPERIENCING VOMITING AFTER TAKING OXYCODONE 08/08/2025 6-8 HOURS AFTER TAKING THE MEDICATION. PAIN IS DESCRIBED CONSTANT AND STABBING. PAIN IS WORSE AFTER A DRESSING CHANGE. PAIN THE PATIENT DESCRIBES THE PAIN... FALL RISK SCREENING: SCREENING :NO FALLS REPORTED IN THE LAST YEAR CURRENT MEDICATIONS TAKING CHLORTHALIDONE 25 MG TABLET 1/2 TABLET IN THE MORNING WITH FOOD ORALLY ONCE A DAY TAKING ZYRTEC 10 MG TABLET 1 TABLET NEEDED ORALLY ONCE A DAY TAKING OMEPRAZOLE 20 MG TABLET DELAYED RELEASE 2 TABLET ORALLY ONCE A DAY TAKING METRONIDAZOLE 0.75 % CREAM 1 APPLICATION TO AFFECTED AREA EXTERNALLY QPM AFTER WASH TO FACE TAKING GABAPENTIN 600 MG TABLET 1 TABLET ORALLY THREE TIMES DAILY TAKING VENTOLIN HFA 108 (90 BASE) MCG/ACT AEROSOL SOLUTION 2 PUFFS NEEDED INHALATION EVERY 4 HOURS NEEDED TAKING NAPROXEN 500 MG TABLET 1 TABLET WITH FOOD OR MILK NEEDED ORALLY EVERY 12 HRS TAKING METFORMIN HCL 1000 MG TABLET 1 TABLET WITH A MEAL ORALLY ONCE A DAY TAKING TRULICITY 0.75 MG/0.5ML SOLUTION PEN-INJECTOR DIRECTED SUBCUTANEOUS WEEKLY NOT-TAKING PERCOCET 5-325 MG TABLET 1 TABLET NEEDED ORALLY 1 TAB PRE AND POST DRSG CHANGE MDD2 #28 TABS FOR 30 DAYS SUPPLY, NOTES: ONLY FOR SEVERE PAIN NOT-TAKING PERCOCET 10-325 MG TABLET 1 TO 2 ORALLY 1 TAB PRE AND POST DRSG CHANGE MDD2 #28 TAB FOR 30 DAY SUPPLY MEDICATION LIST REVIEWED AND RECONCILED WITH THE PATIENT PAST MEDICAL HISTORY GERD ALLERGIES ASTHMA ROSACEA (DR. AL) OSTEOARTHRITIS: BILATERAL KNEES (DR. LAURE GARCIA) CHRONIC BILATERAL LEG EDEMA (POOR COMPLIANCE WITH FUROSEMIDE) BLADE (RECENT SLEEP STUDY 05/2019, SEENoel TYLER OF NEUROLOGY); HISTORY OF ACUTE HYPOXEMIC RESPIRATORY FAILURE REQUIRING INTUBATION S/P LEFT KNEE REPLACEMENT ABNORMAL EKG W/O EVIDENCE OF VT/MYOCARDIAL PERFUSION DEFECT, NUCLEAR STRESS 03/06/17 WITH EF 75% (HEART FAILURE WITH PRESERVED EF), SEES DWAYNE GARAY/DR. JORDAN ELEVATED BP W/O DX OF HTN T2DM, GOAL A1C < 6.5 HX DEPRESSION, TREATED WITH COUNSELLING EMPHYSEMA ALLERGIES DOXYCYCLINE (ROSACEA): DIARRHEA - ALLERGY SURGICAL HISTORY 3 C-SECTIONS CARPAL TUNNEL: 2009 LEFT HAND CARACT SURGERY OU 10/05/10/26/2016 TONSILLECTOMY 1960 TUBAL LIGATION 1985 RETINA SURGERY LEFT EYE SEPTEMBER 07, 2018 LEFT KNEE REPLACEMENT 01/2019 FAMILY HISTORY FATHER: 75 YRS, DEMENTIA, KNEE PROBLEMS, IRREGULAR HEART BEAT, COPD MOTHER: 83 YRS, COPD, CHF SIBLINGS: ALIVE, CANCER, BREAST SISTER AGE 49 SON(S): ALIVE DAUGHTER(S): ALIVE PATERNAL AUNT: , CANCER, BREAST 3 SON(S) , 3 DAUGHTER(S) . 2 PATERNAL COUSINS AND SISTER WITH BREAST CANCERPT WITH PRECANCEROUS ON FACE. SOCIAL HISTORY GENERAL: TOBACCO USE ARE YOU A:NONSMOKER NEVER SMOKER HIV / HEP-C SCREENING HIV TEST OFFERED TO PATIENT:YES DATE OFFERED:07/22/2019 TEST ACCEPTED:NO REASON:PATIENT DECLINED BROCHURE PROVIDED TO PATIENTYES OTHERS AT HOME: 1 GRANDKID IN THE HOME, MULTIPLE CATS AND 2 DOGS. EDUCATION LEVEL OF EDUCATION:HIGH SCHOOL DIET: REGULAR. LANGUAGE LANGUAGES SPOKEN:HAITIAN NEW PATIENT PAIN DIARY TODAY'S VISIT 01/28/2020 PATIENT DESCRIBES PAIN :ACHING, HAVE IT ALL THE TIME, SHARP, STABBING, TENDER, SORE IS THERE A CHANCE YOU COULD BE ?NO HAVE YOU BEEN SICK IN THE LAST WEEK (COLD, COUGH, FEVER, FLU, ETC)NO DO YOU TAKE ANY BLOOD THINNERS?NO DO YOU HAVE ANY RASHES OR OPEN SORES?YES OPEN SORE ON RIGHT LEG, DRESSING IN PLACE ANY CHANGE IN BOWEL OR BLADDER CONTROL?NO ARE YOU ALLERGIC TO SHELLFISH OR IV DYE?NO ARE YOU DIABETIC?YES PRE-DIABETIC DO YOU HAVE A PACEMAKER OR DEFIBRILLATOR?NO ANY NEW PROBLEMS WITH MEDICINES OR NEW ALLERGIESNO ANY NEW PATTERNS OF PAIN OR NUMBNESS?NO ANY CHANGE IN YOUR MEDICAL CONDITION?NO HAVE YOU FALLEN IN THE LAST 6 MONTHS?NO DO YOU USE ANY TYPE OF TOBACCO (SMOKE, SMOKELESS, CHEW, ETC.)NO ARE YOU ABUSED, NEGLECTED, OR IN AN UNSAFE ENVIRONMENT?NO DO YOU HAVE THOUGHTS OF HURTING YOURSELF OR SOMEONE ELSE?NO DO YOU NEED ANY PRESCRIPTIONS?NO DO YOU HAVE ANY OTHER QUESTIONS OR CONCERNS?NO BMI CARE GOAL FOLLOW-UP ABOVE NORMAL BMI FOLLOW-UPGIVING ENCOURAGEMENT TO EXERCISE RECREATIONAL DRUG USE DENIES. EXERCISE: NO REGULAR EXERCISE. LEARNING BARRIERS / SPECIAL NEEDS CHANGE FROM LAST VISIT?YES BARRIERS TO LEARNING?NO HEARING IMPAIRED?NO VISION IMPAIRED?YES COGNITIVELY IMPAIRED?NO :CORRECTIVE LENSES READINESS TO LEARN?YES LEARNING PREFERENCES?NO LEARNING CAPABILITIES PRESENT?YES EMOTIONAL BARRIERS?NO SPECIAL DEVICES?YES :CANE TECHNICAL SOLUTIONS DIRECTOR NEEDED?NO PAIN CLINIC PFS, CLERGY, PUBLIC HEALTH REFERRALS WAS THE PROVIDER NOTIFIED OF ANY PERTINENT INFO?YES HAS THE PATIENT BEEN EDUCATED REGARDING HIS/HER PLAN OF CARE?YES HAS THE PATIENT BEEN EDUCATED REGARDING PAIN, THE RISK FOR PAIN, THE IMPORTANCE OF EFFECTIVE PAIN MANAGEMENT, AND THE PAIN ASSESSMENT PROCESS?YES LATEX QUESTIONNAIRE LATEX ALLERGY : HAVE YOU EVER DEVELOPED ANY TYPE OF REACTION AFTER HANDLING LATEX PRODUCTS SUCH RUBBER GLOVES, CONDOMS, DIAPHRAGMS, BALLOONS, SOCKS, OR UNDERWEAR?NO LATEX ALLERGY : HAVE YOU EVER DEVELOPED ANY TYPE OF REACTION DURING OR AFTER DENTAL APPOINTMENT, VAGINAL/RECTAL EXAMINATION, SURGICAL PROCEDURE, OR ANY OTHER EXPOSURE?NO LATEX RISK : HAVE YOU EVER HAD ANY DIFFICULTY BREATHING OR HIVES AFTER EATING OR HANDLING ANY FRUITS, OR VEGETABLES; SUCH KIWI, BANANAS, STONE FRUITS, OR CHESTNUTSNO LATEX RISK : DO YOU HAVE A PREVIOUS PERSONAL HISTORY OF MORE THAN NINE SURGERIES, SPINA BIFIDA, OR REPEATED CATHERIZATIONS? NO LATEX RISK : ARE YOU FREQUENTLY EXPOSED TO LATEX PRODUCTS IN YOUR OCCUPATION?NO DATE ASKED : 01/28/2020 CAFFEINE CAFFEINE USE?YES HOW OFTEN AND HOW MUCH? 1 PER DAY ADVANCE DIRECTIVE ADVANCE DIRECTIVE DISCUSSED WITH PATIENT:YES HCP - DAUGHTERS JOAN AND LORENZO ZOROASTRIAN ZOROASTRIAN NO ZOROASTRIAN BELIEFS THAT WOULD IMPACT HEALTH CARE. MARITAL STATUS: . 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 HOSPITALIZATION/MAJOR DIAGNOSTIC PROCEDURE EPILEPSY TITRATING OFF OF PHENOBABRITAL MANY YEARS AGO TOTAL KNEE 01/2019 REVIEW OF SYSTEMS REVIEWED BY: PROVIDER: RYAN ESTEVES . CONSTITUTIONAL: ANY CHANGE IN YOUR MEDICAL CONDITION? NO . CHILLS NO . FEVER NO . INFECTION: DO YOU HAVE NEW INFECTIONS? NO . DO YOU HAVE HISTORY OF MRSA? NO . MUSCULOSKELETAL: ANY NEW PATTERNS OF PAIN OR NUMBNESS? NO . GASTROENTEROLOGY: ANY NEW CHANGE IN BOWEL CONTROL? NO . GENITOURINARY: ANY NEW CHANGE IN BLADDER CONTROL? NO . IS THERE A CHANCE YOU COULD BE ? NO . HEMATOLOGY/LYMPH: DO YOU TAKE ANY BLOOD THINNERS? (FOR EXAMPLE- COUMADIN, PLAVIX, AGGRENOX, PLATEL, PRADAXA, OR XARELTO) NO . WHEN WAS YOUR LAST DOSE? DATE: TIME: . NEUROLOGY: HAVE YOU FALLEN IN THE PAST 12 MONTHS? NO . ANY NEW EXTREMITY NUMBNESS OR WEAKNESS? NO . CARDIOLOGY: DO YOU HAVE A PACEMAKER OR DEFIBRILLATOR? NO . RESPIRATORY: HAVE YOU BEEN SICK IN THE PAST WEEK? NO . FEVER NO . FLU LIKE SYMPTOMS? NO . COUGH NO . INTEGUMENTARY: DO YOU HAVE ANY RASHES OR OPEN SORES? PT HAS WOUND ON RIGHT LEG, DRESSING IN PLACE . ALLERGIC/IMMUNO: ARE YOU ALLERGIC TO IV DYE? NO . ANY NEW ALLERGIES? NO . PSYCHIATRIC: DO YOU HAVE THOUGHTS OF HURTING YOURSELF OR SOMEONE ELSE? NO . ARE YOU ABUSED, NEGLECTED, OR IN AN UNSAFE ENVIRONMENT? NO . ENDOCRINOLOGY: ARE YOU DIABETIC? NO . OTHER: DO YOU NEED ANY PRESCRIPTIONS? NO . IF YES, PLEASE LIST: ____ . ANY NEW PROBLEMS WITH YOUR MEDICATIONS? NO . WHEN DID YOU LAST EAT? ____ . WHEN DID YOU LAST DRINK? ____ . WHAT DID YOU LAST DRINK? ____ . NAME OF PERSON DRIVING YOU HOME? ____ . DO YOU HAVE ANY OTHER QUESTIONS OR CONCERNS PT NOT TOLERATING OXYCODONE, NAUSEATED AND VOMITING . VITAL SIGNS WT 266 LBS, HT 62.5 IN, BMI 47.87 INDEX, BP 146/66 MM HG, HR 77 /MIN, RR 18 /MIN, TEMP 96.1 F, OXYGEN SAT % 96%, NA INITIALS AW 1053. EXAMINATION GENERAL EXAMINATION: GENERALAWAKE,ALERT ,PLEASANT . PSYCHAFFECT NORMAL . LUNGS:LUNG SÁNCHEZ ARE CLEAR TO AUSCULTATION BILATERALLY. GOOD MOVEMENT OF AIR . HEART:S1, S2 IN A REGULAR RATE AND RHYTHM. NO SIGNIFICANT MURMURS, RUBS OR GALLOPS NOTED . ASSESSMENTS NON-PRESSURE CHRONIC ULCER OF OTHER PART OF RIGHT LOWER LEG WITH FAT LAYER EXPOSED - L97.812 TREATMENT OTHERS STOP PERCOCET TABLET, 10-325 MG, 1 TO 2, ORALLY, 1 TAB PRE AND POST DRSG CHANGE MDD2 #28 TAB FOR 30 DAY SUPPLY START HYDROCODONE-ACETAMINOPHEN TABLET, 5-325 MG, 1 TO 2 TAB, ORALLY, Q4-6 HR PRN PAIN MDD4, 30 DAYS, 60, REFILLS 0 NOTES: ISTOP REGISTRY REVIEWED AND DEMONSTRATES COMPLLIANCE. (REF # ) BRINGS IN MEDICATIONS WHICH IS APPROPRIATE FOR WHAT WAS DISPENSED. , RISKS OF NARCOTIC/OPIOD MEDICATIONS INCLUDES BUT IS NOT LIMITED TO RISK OF DEPENDANCE/DEVELOPMENT OF ADDICTION, MOOD DISTURBANCE AND DEPRESSION, OSTEOPOROSIS, HORMONAL AND LABIDAL CHANGES, RESPIRATORY DEPRESSION AND . PATIENT IS ADVISED NOT TO DRIVE OR DRINK ALCOHOL WHILE ON THESE MEDICATIONS. PREVENTIVE MEDICINE PAIN CLINIC TEACHING: THE PATIENT HAS BEEN EDUCATED REGARDING PAIN, THE RISK FOR PAIN, THE IMPORTANCE OF EFFECTIVE PAIN MANAGEMENT, AND THE PAIN ASSESSMENT PROCESS. : REVIEWED AND DISCUSSED DISCHARGE INSTRUCTIONS WITH PATIENT, PT ACKNOWLEDGED UNDERSTANDING. DS PROCEDURE CODES FA211 ESTABILISHED PATIENT [facility] CHARGE DISPOSITION & COMMUNICATION FOLLOW UP 6 WEEKS (REASON: MED MGMNT) ELECTRONICALLY SIGNED BY DANIELITO RAJAN ON 02/11/2020 AT 03:00 PM EDT DISCLAIMER : THIS IS A VISIT SUMMARY EXTRACTED FROM THE [employer] CHART. IT IS NOT A COPY OF THE [employer] PROGRESS NOTE. ORQUIDEA
== END ==
LOC: M PAIN 10:30
PROVIDERS: ATTEND Nurse Practitioner Family
DX: L97.812 Non-pressure chronic ulcer of other part of right lower leg with fat layer exposed (principal); E11.9 Type 2 diabetes mellitus without complications; Z79.84 Long term (current) use of oral hypoglycemic drugs; Z79.899 Other long term (current) drug therapy; Z88.1 Allergy status to other antibiotic agents; I87.311 Chronic venous hypertension (idiopathic) with ulcer of right lower extremity

== ENCOUNTER → 2020-03-11 | Outpatient (CLI) | payer OTHER ==
--- NOTE | 2020-03-13 04:12 | ECWPNPC ---
PATIENT NAME: TREVOR ELLISON : 1955 GENDER: FEMALE VISIT DATE: 03/11/2020 DISCHARGE DATE: 03/11/20813 VISIT LOCKED DATE TIME: PHYSICIAN: RYAN YATES RESOURCE: RYAN YATES REASON FOR APPOINTMENT 1. MED MGMNT, PAT COMPLETED HISTORY OF PRESENT ILLNESS HISTORY OF PRESENT ILLNESS: PATIENT IS AGREEABLE TO TELEPHONE VISIT TODAY. CONTINUES WITH SIGNIFICANT AMOUNT OF PAIN IN HER LOWER EXTREMITY. FOLLOWS WITH DR. BROWN FOR WOUND CARE 3 TIMES A WEEK. DUE TO UNCONTROLLED PAIN WE INCREASED HYDROCODONE 03/08/2025 TO ALLOW HER TO HAVE 2 TABLETS BEFORE AND AFTER HER WOUND CARE. SHE IS DRIVING HERSELF TO HER WOUND CARE APPOINTMENTS AND IS ONLY TAKING ONE TABLET BEFORE AND 1 TABLET AFTER. I'VE ASKED HER TO NOT DRIVE AFTER TAKING HYDROCODONE AND I'VE ENCOURAGED HER TO GET A RESIDENTIAL REAL ESTATE SALES MANAGER SO THAT SHE IS ABLE TO TAKE 2 OF HER HYDROCODONE BEFORE THE PROCEDURE AND 2 AFTER PROCEDURE. SHE HAS SEVERE SLEEP APNEA. SHE ADMITS TO NONCOMPLIANCE WITH CPAP. I'VE TOLD HER TODAY THAT I WOULD NOT BE ABLE TO DO ANY INCREASES IN HER NARCOTIC PAIN MEDICATION BECAUSE OF THIS. PAIN THE PATIENT DESCRIBES THE PAIN... FALL RISK SCREENING: SCREENING :NO FALLS REPORTED IN THE LAST YEAR CURRENT MEDICATIONS TAKING OMEPRAZOLE 20 MG TABLET DELAYED RELEASE 2 TABLET ORALLY ONCE A DAY TAKING METRONIDAZOLE 0.75 % CREAM 1 APPLICATION TO AFFECTED AREA EXTERNALLY QPM AFTER WASH TO FACE TAKING GABAPENTIN 600 MG TABLET 1 TABLET ORALLY THREE TIMES DAILY TAKING VENTOLIN HFA 108 (90 BASE) MCG/ACT AEROSOL SOLUTION 2 PUFFS NEEDED INHALATION EVERY 4 HOURS NEEDED TAKING NAPROXEN 500 MG TABLET 2 TABLETS WITH FOOD OR MILK NEEDED ORALLY EVERY 12 HRS TAKING METFORMIN HCL 1000 MG TABLET 1 TABLET WITH A MEAL ORALLY ONCE A DAY TAKING HYDROCODONE-ACETAMINOPHEN 5-325 MG TABLET 1 TO 2 TAB ORALLY Q4-6 HR PRN PAIN MDD4 TAKING HYDROCORTISONE 1 % OINTMENT 1 APPLICATION EXTERNALLY ONCE A DAY TAKING ZYRTEC 10 MG TABLET 1 TABLET NEEDED ORALLY ONCE A DAY TAKING BENADRYL 25 MG CAPSULE 1 CAPSULE ORALLY ONCE A DAY IN AM TAKING TRULICITY 0.75 MG/0.5ML SOLUTION PEN-INJECTOR DIRECTED SUBCUTANEOUS WEEKLY NOT-TAKING PERCOCET 5-325 MG TABLET 1 TABLET NEEDED ORALLY 1 TAB PRE AND POST DRSG CHANGE MDD2 #28 TABS FOR 30 DAYS SUPPLY, NOTES: ONLY FOR SEVERE PAIN NOT-TAKING CHLORTHALIDONE 25 MG TABLET 1/2 TABLET IN THE MORNING WITH FOOD ORALLY ONCE A DAY MEDICATION LIST REVIEWED AND RECONCILED WITH THE PATIENT PAST MEDICAL HISTORY GERD ALLERGIES ASTHMA ROSACEA (DR. AL) OSTEOARTHRITIS: BILATERAL KNEES (SEES EMILY, DR. KELSEY) CHRONIC BILATERAL LEG EDEMA (POOR COMPLIANCE WITH FUROSEMIDE) BLADE (RECENT SLEEP STUDY 05/2019, SEES DR. TYLER OF NEUROLOGY); HISTORY OF ACUTE HYPOXEMIC RESPIRATORY FAILURE REQUIRING INTUBATION S/P LEFT KNEE REPLACEMENT ABNORMAL EKG W/O EVIDENCE OF CO/MYOCARDIAL PERFUSION DEFECT, NUCLEAR STRESS 03/06/17 WITH EF 75% (HEART FAILURE WITH PRESERVED EF), SEES DWAYNE GARAY/DR. JORDAN ELEVATED BP W/O DX OF HTN T2DM, GOAL A1C < 6.5 HX DEPRESSION, TREATED WITH COUNSELLING EMPHYSEMA ALLERGIES DOXYCYCLINE (ROSACEA): DIARRHEA - ALLERGY SURGICAL HISTORY 3 C-SECTIONS CARPAL TUNNEL: 2009 LEFT HAND CARACT SURGERY OU 10/05/10/26/2016 TONSILLECTOMY 1960 TUBAL LIGATION 1985 RETINA SURGERY LEFT EYE SEPTEMBER 07, 2018 LEFT KNEE REPLACEMENT 01/2019 FAMILY HISTORY FATHER: 75 YRS, DEMENTIA, KNEE PROBLEMS, IRREGULAR HEART BEAT, COPD MOTHER: 83 YRS, COPD, CHF SIBLINGS: ALIVE, CANCER, BREAST SISTER AGE 49 SON(S): ALIVE DAUGHTER(S): ALIVE PATERNAL AUNT: , CANCER, BREAST 3 SON(S) , 3 DAUGHTER(S) . 2 PATERNAL COUSINS AND SISTER WITH BREAST CANCERPT WITH PRECANCEROUS ON FACE. SOCIAL HISTORY GENERAL: TOBACCO USE ARE YOU A:NONSMOKER NEVER SMOKER LATEX QUESTIONNAIRE LATEX ALLERGY : HAVE YOU EVER DEVELOPED ANY TYPE OF REACTION AFTER HANDLING LATEX PRODUCTS SUCH RUBBER GLOVES, CONDOMS, DIAPHRAGMS, BALLOONS, SOCKS, OR UNDERWEAR?NO LATEX ALLERGY : HAVE YOU EVER DEVELOPED ANY TYPE OF REACTION DURING OR AFTER DENTAL APPOINTMENT, VAGINAL/RECTAL EXAMINATION, SURGICAL PROCEDURE, OR ANY OTHER EXPOSURE?NO DATE ASKED : 01/28/2020 LATEX RISK : HAVE YOU EVER HAD ANY DIFFICULTY BREATHING OR HIVES AFTER EATING OR HANDLING ANY FRUITS, OR VEGETABLES; SUCH KIWI, BANANAS, STONE FRUITS, OR CHESTNUTSNO LATEX RISK : DO YOU HAVE A PREVIOUS PERSONAL HISTORY OF MORE THAN NINE SURGERIES, SPINA BIFIDA, OR REPEATED CATHERIZATIONS? NO LATEX RISK : ARE YOU FREQUENTLY EXPOSED TO LATEX PRODUCTS IN YOUR OCCUPATION?NO BMI CARE GOAL FOLLOW-UP ABOVE NORMAL BMI FOLLOW-UPGIVING ENCOURAGEMENT TO EXERCISE ALCOHOL SCREENING DID YOU HAVE A DRINK CONTAINING ALCOHOL IN THE PAST YEAR?NO POINTS0 INTERPRETATIONNEGATIVE RECREATIONAL DRUG USE DRUG USE? DENIES 03/10/20 CAFFEINE CAFFEINE USE?YES HOW OFTEN AND HOW MUCH? 1 PER DAY HIV / HEP-C SCREENING HIV TEST OFFERED TO PATIENT:YES DATE OFFERED:07/22/2019 TEST ACCEPTED:NO REASON:PATIENT DECLINED BROCHURE PROVIDED TO PATIENTYES HOAHAOISM HOAHAOISM NO HINDUISM BELIEFS THAT WOULD IMPACT HEALTH CARE. 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 DIET: REGULAR. EXERCISE: NO REGULAR EXERCISE. MARITAL STATUS: . OTHERS AT HOME: 1 GRANDKID IN THE HOME, MULTIPLE CATS AND 2 DOGS. NEW PATIENT PAIN DIARY TODAY'S VISIT 03/10/2020 PATIENT DESCRIBES PAIN :ACHING, HAVE IT ALL THE TIME, SHARP, STABBING, TENDER, SORE FROM 0-10, WHAT LEVEL IS YOUR PAIN TODAY?6 IS THERE A CHANCE YOU COULD BE ?NO HAVE YOU BEEN SICK IN THE LAST WEEK (COLD, COUGH, FEVER, FLU, ETC)NO DO YOU TAKE ANY BLOOD THINNERS?NO DO YOU HAVE ANY RASHES OR OPEN SORES?YES OPEN SORE ON RIGHT LEG, DRESSING IN PLACE ANY CHANGE IN BOWEL OR BLADDER CONTROL?NO ARE YOU ALLERGIC TO SHELLFISH OR IV DYE?NO ARE YOU DIABETIC?YES PRE-DIABETIC DO YOU HAVE A PACEMAKER OR DEFIBRILLATOR?NO ANY NEW PROBLEMS WITH MEDICINES OR NEW ALLERGIESNO ANY NEW PATTERNS OF PAIN OR NUMBNESS?NO ANY CHANGE IN YOUR MEDICAL CONDITION?NO HAVE YOU FALLEN IN THE LAST 6 MONTHS?NO DO YOU USE ANY TYPE OF TOBACCO (SMOKE, SMOKELESS, CHEW, ETC.)NO ARE YOU ABUSED, NEGLECTED, OR IN AN UNSAFE ENVIRONMENT?NO DO YOU HAVE THOUGHTS OF HURTING YOURSELF OR SOMEONE ELSE?NO DO YOU NEED ANY PRESCRIPTIONS?NO DO YOU HAVE ANY OTHER QUESTIONS OR CONCERNS?NO PAIN CLINIC PFS, CLERGY, PUBLIC HEALTH REFERRALS WAS THE PROVIDER NOTIFIED OF ANY PERTINENT INFO?YES HAS THE PATIENT BEEN EDUCATED REGARDING HIS/HER PLAN OF CARE?YES HAS THE PATIENT BEEN EDUCATED REGARDING PAIN, THE RISK FOR PAIN, THE IMPORTANCE OF EFFECTIVE PAIN MANAGEMENT, AND THE PAIN ASSESSMENT PROCESS?YES ADVANCE DIRECTIVE ADVANCE DIRECTIVE DISCUSSED WITH PATIENT:YES HCP - DAUGHTERS JOAN AND LORENZO HOSPITALIZATION/MAJOR DIAGNOSTIC PROCEDURE EPILEPSY TITRATING OFF OF PHENOBABRITAL MANY YEARS AGO TOTAL KNEE 01/2019 REVIEW OF SYSTEMS REVIEWED BY: PROVIDER: RYAN ESTEVES . CONSTITUTIONAL: ANY CHANGE IN YOUR MEDICAL CONDITION? NO . CHILLS NO . FEVER NO . INFECTION: DO YOU HAVE NEW INFECTIONS? NO . DO YOU HAVE HISTORY OF MRSA? NO . MUSCULOSKELETAL: ANY NEW PATTERNS OF PAIN OR NUMBNESS? YES, STATES INCREASED PAIN . GASTROENTEROLOGY: ANY NEW CHANGE IN BOWEL CONTROL? NO . GENITOURINARY: ANY NEW CHANGE IN BLADDER CONTROL? NO . IS THERE A CHANCE YOU COULD BE ? NO . HEMATOLOGY/LYMPH: DO YOU TAKE ANY BLOOD THINNERS? (FOR EXAMPLE- COUMADIN, PLAVIX, AGGRENOX, PLATEL, PRADAXA, OR XARELTO) NO . WHEN WAS YOUR LAST DOSE? DATE: TIME: . NEUROLOGY: HAVE YOU FALLEN IN THE PAST 12 MONTHS? NO . ANY NEW EXTREMITY NUMBNESS OR WEAKNESS? NO . CARDIOLOGY: DO YOU HAVE A PACEMAKER OR DEFIBRILLATOR? NO . RESPIRATORY: HAVE YOU BEEN SICK IN THE PAST WEEK? NO . FEVER NO . FLU LIKE SYMPTOMS? NO . COUGH NO . INTEGUMENTARY: DO YOU HAVE ANY RASHES OR OPEN SORES? YES, RIGHT LEG WOUND . ALLERGIC/IMMUNO: ARE YOU ALLERGIC TO IV DYE? NO . ANY NEW ALLERGIES? NO . PSYCHIATRIC: DO YOU HAVE THOUGHTS OF HURTING YOURSELF OR SOMEONE ELSE? NO . ARE YOU ABUSED, NEGLECTED, OR IN AN UNSAFE ENVIRONMENT? NO . ENDOCRINOLOGY: ARE YOU DIABETIC? NO, PRE-DIABETIC . OTHER: DO YOU NEED ANY PRESCRIPTIONS? NO . IF YES, PLEASE LIST: ____ . ANY NEW PROBLEMS WITH YOUR MEDICATIONS? NO . WHEN DID YOU LAST EAT? ____ . WHEN DID YOU LAST DRINK? ____ . WHAT DID YOU LAST DRINK? ____ . NAME OF PERSON DRIVING YOU HOME? ____ . DO YOU HAVE ANY OTHER QUESTIONS OR CONCERNS YES, STATES THE HYDROCODONE IS WORKING BETTER THAN THE PERCOCET BUT THAT IT STILL ISN'T STRONG ENOUGH . ASSESSMENTS NON-PRESSURE CHRONIC ULCER OF OTHER PART OF RIGHT LOWER LEG WITH FAT LAYER EXPOSED - L97.812 (PRIMARY) TREATMENT NON-PRESSURE CHRONIC ULCER OF OTHER PART OF RIGHT LOWER LEG WITH FAT LAYER EXPOSED CONTINUE GABAPENTIN TABLET, 600 MG, 1 TABLET, ORALLY, THREE TIMES DAILY CONTINUE HYDROCODONE-ACETAMINOPHEN TABLET, 5-325 MG, 1 TO 2 TAB, ORALLY, Q4-6 HR PRN PAIN MDD4 NOTES: PATIENT IS ADVISED TO GET A MEDICAL TRANSPORT TO AND FROM HER WOUND CARE APPOINTMENTS SO THAT SHE IS ABLE TO TAKE MORE OF HER PAIN MEDICINE BEFORE AND AFTER PLANNED. SHE IS ADVISED NOT TO DRIVE AFTER TAKING NARCOTIC PAIN MEDICATION. SHE IS ADVISED OF THE RISK OF TAKING NARCOTIC PAIN MEDICATION AND BEING NONCOMPLIANT WITH CPAP TO INCLUDE . ADVISED HER THAT I WOULD NOT BE ABLE TO INCREASE DOSING OF HYDROCODONE DUE TO THIS. FOLLOW-UP AT PAIN CENTER IN 6-8 WEEKS AND WE WILL NEED A URINE TOXICOLOGY. OTHERS NOTES: NO VITALS OBTAINED DUE TO VIRTUAL VISIT. DISPOSITION & COMMUNICATION FOLLOW UP 2 MONTHS (REASON: WOUND PAIN PRE/POST DRSG CHANGE BY EVENT DECORATOR) ELECTRONICALLY SIGNED BY DANIELITO RAJAN ON 03/12/2020 AT 12:50 PM EDT DISCLAIMER : THIS IS A VISIT SUMMARY EXTRACTED FROM THE [employer] CHART. IT IS NOT A COPY OF THE [employer] PROGRESS NOTE. ORQUIDEA
== END ==
LOC: M PAIN 10:00
PROVIDERS: ATTEND Nurse Practitioner Family
DX: I87.311 Chronic venous hypertension (idiopathic) with ulcer of right lower extremity (principal); L97.812 Non-pressure chronic ulcer of other part of right lower leg with fat layer exposed; E11.9 Type 2 diabetes mellitus without complications; Z79.84 Long term (current) use of oral hypoglycemic drugs; Z79.891 Long term (current) use of opiate analgesic; Z79.899 Other long term (current) drug therapy; Z88.8 Allergy status to other drugs, medicaments and biological substances

== ENCOUNTER → 2020-04-06 | Outpatient (REF) | payer OTHER | LOC: M SFHCPLAZ 15:36 | PROVIDERS: ATTEND Family Medicine | DX: E11.9 Type 2 diabetes mellitus without complications (principal) ==

== ENCOUNTER → 2020-05-20 | Outpatient (CLI) | payer OTHER ==
[~2020-05-20] MED LIST changes: +BENA25CA4 PO; +CETI10CH PO; +HYDR-3713 PO; +IBUP200C25 PO; +LISI-542 PO; +METF10004 PO; +NAPR250T4 PO
--- NOTE | 2020-05-22 06:16 | ECWPNPC ---
PATIENT NAME: TREVOR ELLISON : 1955 GENDER: FEMALE VISIT DATE: 05/20/2020 DISCHARGE DATE: 05/20/20 1152 VISIT LOCKED DATE TIME: PHYSICIAN: RYAN YATES RESOURCE: RYAN YATES REASON FOR APPOINTMENT 1. WOUND PAIN PRE/POST DRSG CHANGE BY PAPER SORTER AND COUNTER HISTORY OF PRESENT ILLNESS GENERAL: TREVOR IS HERE FOR ROUTINE FOLLOW-UP AND MEDICINE MANAGEMENT FOR WOUND PAIN. SEEING PALLET SORTER IN [place] WEEKLY FOR DRESSING CHANGE. CURRENTLY USING HYDROCODONE 5/325, 2 TABLETS BEFORE PROCEDURE AND 2 TABLETS POST PROCEDURE. FINDING MEDICINE SOMEWHAT HELPFUL. ALSO USING IBUPROFEN AND NAPROXEN. TODAY I HAVE ADVISED HER TO CUT BACK ON USE OF NAPROXEN AND USE IBUPROFEN 600 MG 3 TIMES DAILY. OVERALL TOLERATING WOUND TREATMENTS BETTER WITH CURRENT REGIMEN. -. FALL RISK SCREENING: SCREENING :ONE FALL WITHOUT INJURY IN THE PAST YEAR PAIN SCREENING: PATIENT HAS A COMPLAINT OF ACUTE OR CHRONIC PAIN :YES LOCATION OF PAIN:LEG(S) LOWER RIGHT INTENSITY OF PAIN (SCALE OF 1 TO 10):6 WHAT DOES YOUR PAIN FEEL LIKE:ACHING, BURNING, CONTINOUS, SHARP, STABBING, TENDER, THROBBING, SHOOTING NURSING NOTE: -. PAIN CENTER INTAKE QUESTIONS: DO YOU HAVE A HISTORY OF MRSA? :NO DO YOU TAKE A BLOOD THINNERS? :NO DO YOU HAVE ANY BLEEDING DISORDERS? :NO ANY NEW NUMBNESS OR WEAKNESS IN YOUR LEGS OR ARMS? :NO ANY PACEMAKER,DEFIBRILLATOR, OR DORSAL COLUMN STIMULATOR? :NO DO YOU HAVE ANY RASHES OR OPEN SORES? :YES RIGHT LOWER LEG, DRESSING IN PLACE, INTACT DRESSING ARE YOU ALLERGIC TO IV DYE? :NO ARE YOU DIABETIC? :YES PRE DIABETIC, MANAGED WITH ORAL MEDS ANY NEW PROBLEMS WITH YOUR MEDICATIONS? :NO HAVE YOU RECEIVED A VACCINE IN THE PAST 30 DAYS? :NO DO YOU PLAN TO RECEIVE A VACCINE IN THE NEXT 21 DAYS? :YES IF SO WHAT VACCINE AND WHEN? PLANNING TO HAVE SECOND VERICELLA VACCINATION DO YOU NEED ANY PRESCRIPTION? :NO DO YOU TAKE ANY IMMUNOSUPPRESSIVE MEDICATIONS? :NO IS THERE A CHANCE YOU COULD BE ? :NO ARE YOU BREAST FEEDING? :NO CURRENT MEDICATIONS TAKING OMEPRAZOLE 20 MG TABLET DELAYED RELEASE 2 TABLET ORALLY ONCE A DAY TAKING METRONIDAZOLE 0.75 % CREAM 1 APPLICATION TO AFFECTED AREA EXTERNALLY QPM AFTER WASH TO FACE TAKING VENTOLIN HFA 108 (90 BASE) MCG/ACT AEROSOL SOLUTION 2 PUFFS NEEDED INHALATION EVERY 4 HOURS NEEDED TAKING METFORMIN HCL 1000 MG TABLET 1 TABLET WITH A MEAL ORALLY ONCE A DAY TAKING ZYRTEC 10 MG TABLET 1 TABLET NEEDED ORALLY ONCE A DAY TAKING BENADRYL 25 MG CAPSULE 1 CAPSULE ORALLY ONCE A DAY IN AM TAKING TRULICITY 0.75 MG/0.5ML SOLUTION PEN-INJECTOR DIRECTED SUBCUTANEOUS WEEKLY TAKING TRIAMCINOLONE ACETONIDE 0.1 % CREAM 1 APPLICATION EXTERNALLY TWO TIMES A WEEK TAKING NAPROXEN 500 MG TABLET 2 TABLETS WITH FOOD OR MILK NEEDED ORALLY EVERY 12 HRS TAKING HYDROCODONE-ACETAMINOPHEN 5-325 MG TABLET 1 TO 2 TAB ORALLY Q4-6 HR PRN PAIN MDD4 TAKING GABAPENTIN 600 MG TABLET 1 TABLET ORALLY THREE TIMES DAILY NOT-TAKING CHLORTHALIDONE 25 MG TABLET 1/2 TABLET IN THE MORNING WITH FOOD ORALLY ONCE A DAY MEDICATION LIST REVIEWED AND RECONCILED WITH THE PATIENT PAST MEDICAL HISTORY GERD ALLERGIES ASTHMA ROSACEA (DR. AL) OSTEOARTHRITIS: BILATERAL KNEES (SEES EMILY, DR. KELSEY) CHRONIC BILATERAL LEG EDEMA (POOR COMPLIANCE WITH FUROSEMIDE) BLADE (RECENT SLEEP STUDY 05/2019, SEES DR. TYLER OF NEUROLOGY); HISTORY OF ACUTE HYPOXEMIC RESPIRATORY FAILURE REQUIRING INTUBATION S/P LEFT KNEE REPLACEMENT ABNORMAL EKG W/O EVIDENCE OF HI/MYOCARDIAL PERFUSION DEFECT, NUCLEAR STRESS 03/06/17 WITH EF 75% (HEART FAILURE WITH PRESERVED EF), SEES DWAYNE GARAY/DR. JORDAN ELEVATED BP W/O DX OF HTN T2DM, GOAL A1C < 6.5 HX DEPRESSION, TREATED WITH COUNSELLING EMPHYSEMA ALLERGIES DOXYCYCLINE (ROSACEA): DIARRHEA - ALLERGY ADHESIVE TAPE SURGICAL HISTORY 3 C-SECTIONS CARPAL TUNNEL: 2009 LEFT HAND CARACT SURGERY OU 10/05/10/26/2016 TONSILLECTOMY 1960 TUBAL LIGATION 1985 RETINA SURGERY LEFT EYE SEPTEMBER 07, 2018 LEFT KNEE REPLACEMENT 01/2019 FAMILY HISTORY FATHER: 75 YRS, DEMENTIA, KNEE PROBLEMS, IRREGULAR HEART BEAT, COPD MOTHER: 83 YRS, COPD, CHF SIBLINGS: ALIVE, CANCER, BREAST SISTER AGE 49 SON(S): ALIVE DAUGHTER(S): ALIVE PATERNAL AUNT: , CANCER, BREAST 3 SON(S) , 3 DAUGHTER(S) . 2 PATERNAL COUSINS AND SISTER WITH BREAST CANCERPT WITH PRECANCEROUS ON FACE. SOCIAL HISTORY GENERAL: TOBACCO USE ARE YOU A:NONSMOKER NEVER SMOKER LATEX QUESTIONNAIRE LATEX ALLERGY : HAVE YOU EVER DEVELOPED ANY TYPE OF REACTION AFTER HANDLING LATEX PRODUCTS SUCH RUBBER GLOVES, CONDOMS, DIAPHRAGMS, BALLOONS, SOCKS, OR UNDERWEAR?NO LATEX ALLERGY : HAVE YOU EVER DEVELOPED ANY TYPE OF REACTION DURING OR AFTER DENTAL APPOINTMENT, VAGINAL/RECTAL EXAMINATION, SURGICAL PROCEDURE, OR ANY OTHER EXPOSURE?NO LATEX RISK : HAVE YOU EVER HAD ANY DIFFICULTY BREATHING OR HIVES AFTER EATING OR HANDLING ANY FRUITS, OR VEGETABLES; SUCH KIWI, BANANAS, STONE FRUITS, OR CHESTNUTSNO LATEX RISK : DO YOU HAVE A PREVIOUS PERSONAL HISTORY OF MORE THAN NINE SURGERIES, SPINA BIFIDA, OR REPEATED CATHERIZATIONS? NO LATEX RISK : ARE YOU FREQUENTLY EXPOSED TO LATEX PRODUCTS IN YOUR OCCUPATION?NO DATE ASKED : 05/20/2020 BMI CARE GOAL FOLLOW-UP ABOVE NORMAL BMI FOLLOW-UPGIVING ENCOURAGEMENT TO EXERCISE ALCOHOL SCREENING DID YOU HAVE A DRINK CONTAINING ALCOHOL IN THE PAST YEAR?NO POINTS0 INTERPRETATIONNEGATIVE RECREATIONAL DRUG USE DRUG USE? DENIES 03/10/20 CAFFEINE CAFFEINE USE?YES HOW OFTEN AND HOW MUCH? 1 PER DAY HIV / HEP-C SCREENING HIV TEST OFFERED TO PATIENT:YES DATE OFFERED:07/22/2019 TEST ACCEPTED:NO REASON:PATIENT DECLINED BROCHURE PROVIDED TO PATIENTYES TENRIISM TENRIISM NO JEHOVAH'S WITNESS BELIEFS THAT WOULD IMPACT HEALTH CARE. 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 DIET: REGULAR. EXERCISE: NO REGULAR EXERCISE. MARITAL STATUS: . OTHERS AT HOME: 1 GRANDKID IN THE HOME, MULTIPLE CATS AND 2 DOGS. PAIN CLINIC PFS, CLERGY, PUBLIC HEALTH REFERRALS WAS THE PROVIDER NOTIFIED OF ANY PERTINENT INFO?YES HAS THE PATIENT BEEN EDUCATED REGARDING HIS/HER PLAN OF CARE?YES HAS THE PATIENT BEEN EDUCATED REGARDING PAIN, THE RISK FOR PAIN, THE IMPORTANCE OF EFFECTIVE PAIN MANAGEMENT, AND THE PAIN ASSESSMENT PROCESS?YES ADVANCE DIRECTIVE ADVANCE DIRECTIVE DISCUSSED WITH PATIENT:YES HCP - DAUGHTERS JOAN AND LORENZO HOSPITALIZATION/MAJOR DIAGNOSTIC PROCEDURE EPILEPSY TITRATING OFF OF PHENOBABRITAL MANY YEARS AGO TOTAL KNEE 01/2019 REVIEW OF SYSTEMS CONSTITUTIONAL: ANY RECENT FEVER NO . CHILLS NO . WEIGHT CHANGE OF UNKNOWN REASONS NO . GASTROENTEROLOGY: NEW UNEXPLAINABLE CHANGES IN BOWEL CONTROL NO . CONSTIPATION NO . GENITOURINARY: ANY NEW CHANGE IN BLADDER CONTROL? NO . NEUROLOGY: NEW ONSET DIZZINESS OR NEUROLOGICAL CHANGES NOT MENTIONED NO . NEW NUMBNESS OR PAIN PATTERNS NOT MENTIONED AND PERTINENT TO TODAY'S VISIT NO . CARDIOLOGY: NEW CHEST PRESSURE NO . NEW CHEST PAIN NO . RESPIRATORY: UNEXPLAINABLE COUGH NO . NEW SHORTNESS OF BREATH NO . VITAL SIGNS WT 259.8 LBS, HT 62.5 IN, BMI 46.76 INDEX, BP 145/65 MM HG, HR 67 /MIN, RR 18 /MIN, TEMP 97.2 F, OXYGEN SAT % 97, SAFE IN ENV? (Y/N) Y, REVIEWED BY: YANCI. EXAMINATION GENERAL EXAMINATION: GENERALAWAKE,ALERT ,PLEASANT . PSYCHAFFECT NORMAL . LUNGS:LUNG SÁNCHEZ ARE CLEAR TO AUSCULTATION BILATERALLY. GOOD MOVEMENT OF AIR . HEART:S1, S2 IN A REGULAR RATE AND RHYTHM. NO SIGNIFICANT MURMURS, RUBS OR GALLOPS NOTED . ASSESSMENTS NON-PRESSURE CHRONIC ULCER OF OTHER PART OF RIGHT LOWER LEG WITH FAT LAYER EXPOSED - L97.812 (PRIMARY) TREATMENT NON-PRESSURE CHRONIC ULCER OF OTHER PART OF RIGHT LOWER LEG WITH FAT LAYER EXPOSED NOTES: CONTINUE USE OF HYDROCODONE 5/325 PERIODICALLY FOR SEVERE PAIN BOTH PRE-AND POST DRESSING CHANGE AND NEEDED. REDUCE AMOUNT OF NONSTEROIDAL ANTI-INFLAMMATORY MEDICATION DAILY TO 600 MG 3 TIMES A DAY OF IBUPROFEN. SHE IS ADVISED OF THE INCREASED RISK OF SUDDEN CARDIAC EVENTS AND GI BLEED WITH TAKING TOO MUCH NONSTEROIDAL ANTI-INFLAMMATORY MEDICATION DAILY. FOLLOW-UP AT PAIN CLINIC IS SCHEDULED IN 3 MONTHS. , ISTOP REGISTRY REVIEWED AND DEMONSTRATES COMPLLIANCE. RISKS OF NARCOTIC/OPIOD MEDICATIONS INCLUDES BUT IS NOT LIMITED TO RISK OF DEPENDANCE/DEVELOPMENT OF ADDICTION, MOOD DISTURBANCE AND DEPRESSION, OSTEOPOROSIS, HORMONAL AND LABIDAL CHANGES, RESPIRATORY DEPRESSION AND . PATIENT IS ADVISED NOT TO DRIVE OR DRINK ALCOHOL WHILE ON THESE MEDICATIONS,. PROCEDURE CODES FA211 ESTABILISHED PATIENT [facility] FAC[facility] CHARGE DISPOSITION & COMMUNICATION FOLLOW UP 3 MONTHS (REASON: MEDICINE MANAGEMENT/WOUND PAINCHRONIC) ELECTRONICALLY SIGNED BY DANIELITO RAJAN ON 05/21/2020 AT 08:51 AM EDT DISCLAIMER : THIS IS A VISIT SUMMARY EXTRACTED FROM THE [employer] CHART. IT IS NOT A COPY OF THE [employer] PROGRESS NOTE. ORQUIDEA
== END ==
LOC: M PAIN 10:30
PROVIDERS: ATTEND Nurse Practitioner Family
DX: L97.812 Non-pressure chronic ulcer of other part of right lower leg with fat layer exposed (principal)

== ENCOUNTER → 2020-06-17 | Outpatient (REF) | payer OTHER ==
[2020-08-02 07:13] LABS: HEMOGLOBIN A1c 6.3 %
[2020-08-02 07:14] LABS: MALB URINE SIEMENS 33.8 MG/L
== END ==
LOC: M LABDRWAD 14:26
PROVIDERS: ATTEND Obstetrics & Gynecology
DX: E11.9 Type 2 diabetes mellitus without complications (principal)

== ENCOUNTER → 2020-07-20 | Outpatient (CLI) | payer OTHER ==
--- NOTE | 2020-08-05 09:57 | REP ---
BILATERAL LOWER EXTREMITY DUPLEX VENOUS ULTRASOUND WITH REFLUX STUDY HISTORY: Venous insufficiency. FINDINGS: The deep veins are anechoic and fully compressible from the groin to the popliteal fossa on two-dimensional scanning in both lower extremities. Color flow imaging is homogeneous. Spectral Doppler interrogation demonstrates intact respiratory variation in flow and normal manual augmentation of flow. There is no evidence of deep vein thrombosis (DVT) on either side. REFLUX FINDINGS: On the right, there is minimal reflux in the greater saphenous vein proximally and mid greater saphenous vein level. The greater saphenous vein measures 6.9 mm in AP diameter proximally at the saphenofemoral junction and 1.9 second duration reflux is seen at this level. The mid thigh greater saphenous vein diameter is 5.5 mm and reflux lasting 0.6 seconds in duration is seen at this level. No deep system reflux is seen. The lesser saphenous vein diameter is 2.6 mm. In the left lower extremity, no deep or superficial system venous reflux was observed. Greater saphenous vein diameters are 5.9, 3.6, and 4.0 cm respectively in the proximal, mid thigh, and at the knee level. The lesser saphenous vein diameter is 1.6 mm. IMPRESSION: No evidence of deep vein thrombosis (DVT). Minimal greater saphenous vein reflux noted on the right. MTDD
== END ==
LOC: M RAD 14:28
PROVIDERS: ATTEND Physician Assistant
DX: I87.2 Venous insufficiency (chronic) (peripheral) (principal)

== ENCOUNTER → 2020-07-30 | Outpatient (CLI) | payer OTHER ==
--- NOTE | 2020-08-05 09:59 | REP ---
BILATERAL LOWER EXTREMITY ARTERIAL DOPPLER ULTRASOUND HISTORY: Atherosclerosis, peripheral vascular disease. FINDINGS: Ankle brachial indices could not be accomplished due to patients inability to tolerate compression. Minimal plaquing and diffuse intimal thickening is seen. No high-grade stenosis is noted in either lower extremity. Normal triphasic and biphasic waveforms are noted throughout. There is some increased diastolic flow noted in the right distal anterior and posterior tibial artery distributions, likely due to hyperemia. VELOCITY CHART BILATERAL LOWER EXTREMITIES RIGHT (cm/s) LEFT (cm/s) MATH SPECIALIST 168 150 Profunda 93 61 Proximal SFA 135 99 Mid SFA 101 110 Distal SFA 98 103 Popliteal 74 61 Proximal MIGUEL 70 49 Tibioperoneal trunk 96 62 Proximal SHIP'S CAPTAIN 28 107 Distal SHIP'S CAPTAIN 128 101 Distal MIGUEL 113 113 MTDD
== END ==
LOC: M RAD 10:04
PROVIDERS: ATTEND Physician Assistant
DX: I70.203 Unspecified atherosclerosis of native arteries of extremities, bilateral legs (principal)

== ENCOUNTER → 2020-08-19 | Outpatient (CLI) | payer OTHER ==
--- NOTE | 2020-08-28 15:33 | ECWPNPC ---
PATIENT NAME: TREVOR ELLISON : 1955 GENDER: FEMALE VISIT DATE: 08/19/2020 DISCHARGE DATE: 08/19/20 1147 VISIT LOCKED DATE TIME: PHYSICIAN: RYAN YATES PHYSICIAN PAGER NO: ACTIVE RESOURCE: RYAN YATES REASON FOR APPOINTMENT 1. NO PLAN AT CHECK OUT HISTORY OF PRESENT ILLNESS DEPRESSION SCREENING: TREVOR IS BEING SEEN TODAY FOR MEDICATION MANAGEMENT. SUFFERS FROM CHRONIC RIGHT STASIS ULCER PAIN WITH SURGICAL DEBRIDEMENT TWICE A WEEK WITH DR. BROWN. USING HYDROCODONE 5/325 ONE TO 2 TABLETS PRE-AND POST WOUND DEBRIDEMENT. FINDING MEDICATION HELPFUL AT TOLERATING PROCEDURE. WOUND IS HEALING UP NICELY. URINE TOXICOLOGY DONE AT LAST VISIT IS WITHIN NORMAL LIMITS. PATIENT BRINGS IN HER MEDICATION WHICH IS APPROPRIATE FOR WHAT WAS DISPENSED. PHQ-2 (2015 EDITION) LITTLE INTEREST OR PLEASURE IN DOING THINGS?NOT AT ALL FEELING DOWN, DEPRESSED, OR HOPELESS?NOT AT ALL TOTAL SCORE0 GENERAL: -. FALL RISK SCREENING: SCREENING :NO FALLS REPORTED IN THE LAST YEAR ONE MONTH AGO. PAIN SCREENING: PATIENT HAS A COMPLAINT OF ACUTE OR CHRONIC PAIN :YES LOCATION OF PAIN:LEG(S) RIGHT LEG INTENSITY OF PAIN (SCALE OF 1 TO 10):4 WHAT DOES YOUR PAIN FEEL LIKE:BURNING, THROBBING DURATION:CONTINOUS PAIN IS INCREASED BY:ACTIVITIES PAIN IS DECREASED BY:USE OF PAIN MEDICATIONS, SITTING NURSING NOTE: -. PAIN CENTER INTAKE QUESTIONS: DO YOU HAVE A HISTORY OF MRSA? :NO DO YOU TAKE A BLOOD THINNERS? :NO DO YOU HAVE ANY BLEEDING DISORDERS? :NO ANY NEW NUMBNESS OR WEAKNESS IN YOUR LEGS OR ARMS? :NO ANY PACEMAKER,DEFIBRILLATOR, OR DORSAL COLUMN STIMULATOR? :NO DO YOU HAVE ANY RASHES OR OPEN SORES? :YES OPEN SORES RIGHT LEG ARE YOU ALLERGIC TO IV DYE? :NO ARE YOU DIABETIC? :NO ANY NEW PROBLEMS WITH YOUR MEDICATIONS? :NO HAVE YOU RECEIVED A VACCINE IN THE PAST 30 DAYS? :YES 2-3 WEEKS AGO GOT THE FLU VAC DO YOU PLAN TO RECEIVE A VACCINE IN THE NEXT 21 DAYS? :NO DO YOU NEED ANY PRESCRIPTION? :NO DO YOU TAKE ANY IMMUNOSUPPRESSIVE MEDICATIONS? :NO IS THERE A CHANCE YOU COULD BE ? :NO ARE YOU BREAST FEEDING? :NO CURRENT MEDICATIONS TAKING OMEPRAZOLE 20 MG TABLET DELAYED RELEASE 2 TABLET ORALLY ONCE A DAY TAKING METRONIDAZOLE 0.75 % CREAM 1 APPLICATION TO AFFECTED AREA EXTERNALLY QPM AFTER WASH TO FACE TAKING VENTOLIN HFA 108 (90 BASE) MCG/ACT AEROSOL SOLUTION 2 PUFFS NEEDED INHALATION EVERY 4 HOURS NEEDED TAKING METFORMIN HCL 1000 MG TABLET 1 TABLET WITH A MEAL ORALLY ONCE A DAY TAKING ZYRTEC 10 MG TABLET 1 TABLET NEEDED ORALLY ONCE A DAY TAKING BENADRYL 25 MG CAPSULE 1 CAPSULE ORALLY ONCE A DAY IN AM TAKING TRULICITY 0.75 MG/0.5ML SOLUTION PEN-INJECTOR DIRECTED SUBCUTANEOUS WEEKLY TAKING TRIAMCINOLONE ACETONIDE 0.1 % CREAM 1 APPLICATION EXTERNALLY TWO TIMES A WEEK TAKING NAPROXEN 500 MG TABLET 2 TABLETS WITH FOOD OR MILK NEEDED ORALLY EVERY 12 HRS TAKING HYDROCODONE-ACETAMINOPHEN 5-325 MG TABLET 1 TO 2 TAB ORALLY Q4-6 HR PRN PAIN MDD4 TAKING LISINOPRIL 5 MG TABLET 1 TABLET ORALLY ONCE A DAY NOT-TAKING GABAPENTIN 600 MG TABLET 1 TABLET ORALLY THREE TIMES DAILY NOT-TAKING CHLORTHALIDONE 25 MG TABLET 1/2 TABLET IN THE MORNING WITH FOOD ORALLY ONCE A DAY MEDICATION LIST REVIEWED AND RECONCILED WITH THE PATIENT PAST MEDICAL HISTORY GERD ALLERGIES ASTHMA ROSACEA (DR. AL) OSTEOARTHRITIS: BILATERAL KNEES (DR. LAURE GARCIA) CHRONIC BILATERAL LEG EDEMA (POOR COMPLIANCE WITH FUROSEMIDE) BLADE (RECENT SLEEP STUDY 05/2019, SEES DR. TYLER OF NEUROLOGY); HISTORY OF ACUTE HYPOXEMIC RESPIRATORY FAILURE REQUIRING INTUBATION S/P LEFT KNEE REPLACEMENT ABNORMAL EKG W/O EVIDENCE OF [place]/MYOCARDIAL PERFUSION DEFECT, NUCLEAR STRESS 03/06/17 WITH EF 75% (HEART FAILURE WITH PRESERVED EF), SEENoel GARAY/DR. JORDAN ELEVATED BP W/O DX OF HTN T2DM, GOAL A1C < 6.5 HX DEPRESSION, TREATED WITH COUNSELLING EMPHYSEMA ALLERGIES DOXYCYCLINE (ROSACEA): DIARRHEA - ALLERGY ADHESIVE TAPE SURGICAL HISTORY 3 C-SECTIONS CARPAL TUNNEL: 2009 LEFT HAND CARACT SURGERY OU 10/05/10/26/2016 TONSILLECTOMY 1960 TUBAL LIGATION 1985 RETINA SURGERY LEFT EYE SEPTEMBER 07, 2018 LEFT KNEE REPLACEMENT 01/2019 FAMILY HISTORY FATHER: 75 YRS, DEMENTIA, KNEE PROBLEMS, IRREGULAR HEART BEAT, COPD MOTHER: 83 YRS, COPD, CHF SIBLINGS: ALIVE, CANCER, BREAST SISTER AGE 49 SON(S): ALIVE DAUGHTER(S): ALIVE PATERNAL AUNT: , CANCER, BREAST 3 SON(S) , 3 DAUGHTER(S) . 2 PATERNAL COUSINS AND SISTER WITH BREAST CANCERPT WITH PRECANCEROUS ON FACE. SOCIAL HISTORY GENERAL: TOBACCO USE ARE YOU A:NONSMOKER NEVER SMOKER LATEX QUESTIONNAIRE LATEX ALLERGY : HAVE YOU EVER DEVELOPED ANY TYPE OF REACTION AFTER HANDLING LATEX PRODUCTS SUCH RUBBER GLOVES, CONDOMS, DIAPHRAGMS, BALLOONS, SOCKS, OR UNDERWEAR?NO LATEX ALLERGY : HAVE YOU EVER DEVELOPED ANY TYPE OF REACTION DURING OR AFTER DENTAL APPOINTMENT, VAGINAL/RECTAL EXAMINATION, SURGICAL PROCEDURE, OR ANY OTHER EXPOSURE?NO LATEX RISK : HAVE YOU EVER HAD ANY DIFFICULTY BREATHING OR HIVES AFTER EATING OR HANDLING ANY FRUITS, OR VEGETABLES; SUCH KIWI, BANANAS, STONE FRUITS, OR CHESTNUTSNO LATEX RISK : DO YOU HAVE A PREVIOUS PERSONAL HISTORY OF MORE THAN NINE SURGERIES, SPINA BIFIDA, OR REPEATED CATHERIZATIONS? NO LATEX RISK : ARE YOU FREQUENTLY EXPOSED TO LATEX PRODUCTS IN YOUR OCCUPATION?NO DATE ASKED : 08/19/2020 BMI CARE GOAL FOLLOW-UP ABOVE NORMAL BMI FOLLOW-UPGIVING ENCOURAGEMENT TO EXERCISE ALCOHOL SCREENING DID YOU HAVE A DRINK CONTAINING ALCOHOL IN THE PAST YEAR?NO POINTS0 INTERPRETATIONNEGATIVE RECREATIONAL DRUG USE DRUG USE? DENIES 03/10/20 CAFFEINE CAFFEINE USE?YES HOW OFTEN AND HOW MUCH? 1 PER DAY HIV / HEP-C SCREENING HIV TEST OFFERED TO PATIENT:YES DATE OFFERED:07/22/2019 TEST ACCEPTED:NO REASON:PATIENT DECLINED BROCHURE PROVIDED TO PATIENTYES SABIANISM SABIANISM NO TAOISM BELIEFS THAT WOULD IMPACT HEALTH CARE. 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 DIET: REGULAR. EXERCISE: NO REGULAR EXERCISE. MARITAL STATUS: . OTHERS AT HOME: 1 GRANDKID IN THE HOME, MULTIPLE CATS AND 2 DOGS. PAIN CLINIC PFS, CLERGY, PUBLIC HEALTH REFERRALS WAS THE PROVIDER NOTIFIED OF ANY PERTINENT INFO?YES HAS THE PATIENT BEEN EDUCATED REGARDING HIS/HER PLAN OF CARE?YES HAS THE PATIENT BEEN EDUCATED REGARDING PAIN, THE RISK FOR PAIN, THE IMPORTANCE OF EFFECTIVE PAIN MANAGEMENT, AND THE PAIN ASSESSMENT PROCESS?YES ADVANCE DIRECTIVE ADVANCE DIRECTIVE DISCUSSED WITH PATIENT:YES HCP - DAUGHTERS JOAN AND LORENZO HOSPITALIZATION/MAJOR DIAGNOSTIC PROCEDURE EPILEPSY TITRATING OFF OF PHENOBABRITAL MANY YEARS AGO TOTAL KNEE 01/2019 REVIEW OF SYSTEMS CONSTITUTIONAL: ANY RECENT FEVER NO . CHILLS NO . WEIGHT CHANGE OF UNKNOWN REASONS NO . GASTROENTEROLOGY: NEW UNEXPLAINABLE CHANGES IN BOWEL CONTROL NO . CONSTIPATION NO . GENITOURINARY: ANY NEW CHANGE IN BLADDER CONTROL? NO . NEUROLOGY: NEW ONSET DIZZINESS OR NEUROLOGICAL CHANGES NOT MENTIONED NO . NEW NUMBNESS OR PAIN PATTERNS NOT MENTIONED AND PERTINENT TO TODAY'S VISIT NO . CARDIOLOGY: NEW CHEST PRESSURE NO . NEW CHEST PAIN NO . RESPIRATORY: UNEXPLAINABLE COUGH NO . NEW SHORTNESS OF BREATH NO . VITAL SIGNS WT 263.2 LBS, HT 62.5 IN, BMI 47.37 INDEX, BP 157/66 MM HG, HR 76 /MIN, RR 18 /MIN, TEMP 97.2 F, OXYGEN SAT % 97%, SAFE IN ENV? (Y/N) YES, NA INITIALS AW 1109, REVIEWED BY: DIANA. EXAMINATION GENERAL EXAMINATION: GENERALAWAKE,ALERT ,PLEASANT . PSYCHAFFECT NORMAL . LUNGS:LUNG SÁNCHEZ ARE CLEAR TO AUSCULTATION BILATERALLY. GOOD MOVEMENT OF AIR . HEART:S1, S2 IN A REGULAR RATE AND RHYTHM. NO SIGNIFICANT MURMURS, RUBS OR GALLOPS NOTED . ASSESSMENTS NON-PRESSURE CHRONIC ULCER OF OTHER PART OF RIGHT LOWER LEG WITH FAT LAYER EXPOSED - L97.812 (PRIMARY) CHRONIC PRESCRIPTION OPIATE USE - Z79.891 TREATMENT NON-PRESSURE CHRONIC ULCER OF OTHER PART OF RIGHT LOWER LEG WITH FAT LAYER EXPOSED CONTINUE HYDROCODONE-ACETAMINOPHEN TABLET, 5-325 MG, 1 TO 2 TAB, ORALLY, Q4-6 HR PRN PAIN MDD4 NOTES: ISTOP REGISTRY REVIEWED AND DEMONSTRATES COMPLLIANCE. (REF # ) BRINGS IN MEDICATIONS WHICH IS APPROPRIATE FOR WHAT WAS DISPENSED. RECENT URINE TOXICOLOGY REVIEWED. NO UNAUTHORIZED MEDICATIONS. NO ILLICIT SUBSTANCES AND PRESCRIBED MEDICATIONS WERE PRESENT. , RISKS OF NARCOTIC/OPIOD MEDICATIONS INCLUDES BUT IS NOT LIMITED TO RISK OF DEPENDANCE/DEVELOPMENT OF ADDICTION, MOOD DISTURBANCE AND DEPRESSION, OSTEOPOROSIS, HORMONAL AND LABIDAL CHANGES, RESPIRATORY DEPRESSION AND . PATIENT IS ADVISED NOT TO DRIVE OR DRINK ALCOHOL WHILE ON THESE MEDICATIONS. PROCEDURE CODES FA211 ESTABILISHED PATIENT [facility] CHARGE DISPOSITION & COMMUNICATION FOLLOW UP 3 MONTHS (REASON: MEDICATION MANAGEMENT/RIGHT WOUND CARE) ELECTRONICALLY SIGNED BY DANIELITO RAJAN ON 08/28/2020 AT 03:23 PM EDT DISCLAIMER : THIS IS A VISIT SUMMARY EXTRACTED FROM THE [employer] CHART. IT IS NOT A COPY OF THE [employer] PROGRESS NOTE. ORQUIDEA
== END ==
LOC: M PAIN 10:30
PROVIDERS: ATTEND Nurse Practitioner Family
DX: L97.812 Non-pressure chronic ulcer of other part of right lower leg with fat layer exposed (principal); K21.9 Gastro-esophageal reflux disease without esophagitis; J45.909 Unspecified asthma, uncomplicated; G47.33 Obstructive sleep apnea (adult) (pediatric); E11.9 Type 2 diabetes mellitus without complications; J43.9 Emphysema, unspecified; M17.0 Bilateral primary osteoarthritis of knee; Z79.891 Long term (current) use of opiate analgesic; Z79.84 Long term (current) use of oral hypoglycemic drugs; Z79.899 Other long term (current) drug therapy

== ENCOUNTER → 2020-09-04 | Outpatient (REF) | payer OTHER ==
[2020-09-04 18:26] LABS: MEAN CORPUSCULAR HEMOGLOBIN 25.3 pg (27.0-33.0); MEAN CORPUSCULAR HGB CONC 30.2 g/dl (32.0-36.5); MEAN CORPUSCULAR VOLUME 83.7 fl (80.0-96.0); PLATELET COUNT, AUTOMATED 346 10^3/uL (150-450); RED BLOOD COUNT 5.14 10^6/uL (4.00-5.40); WHITE BLOOD COUNT 10.6 10^3/uL (4.0-10.0)
[2020-09-04 18:56] LABS: BLOOD UREA NITROGEN 19 MG/DL (7-18); CALCIUM LEVEL 9.5 MG/DL (8.8-10.2); CARBON DIOXIDE LEVEL 30 MEQ/L (21-32); CHLORIDE LEVEL 102 MEQ/L (98-107); CREATININE FOR GFR 0.73 MG/DL (0.55-1.30); GLOMERULAR FILTRATION RATE > 60.0 (>45); GLUCOSE, FASTING 65 MG/DL (70-100); POTASSIUM SERUM 4.1 MEQ/L (3.5-5.1); SODIUM LEVEL 139 MEQ/L (136-145)
== END ==
LOC: M SFHCPLAZ 10:00 → M SFHCADAM 11:00
PROVIDERS: ATTEND Family Medicine
DX: Z01.818 Encounter for other preprocedural examination (principal)

== ENCOUNTER → 2020-09-06 | Outpatient (CLI) | payer OTHER | LOC: M LABSMTC 09:50 | PROVIDERS: ATTEND Anesthesiology | DX: Z01.812 Encounter for preprocedural laboratory examination (principal); Z20.828 Contact with and (suspected) exposure to other viral communicable diseases | CPT/HCPCS: C9803; U0003 ==

== ENCOUNTER 2020-09-11 06:28 | Day surgery (SDC) | payer OTHER ==
[~2020-09-11] VITALS: Ht 157.5 cm; Wt 114.3 kg
[2020-09-11] MEDS ORDERED: LR 1,000 ML IV ONE (06:45)
[2020-09-11] MEDS ORDERED: ceFAZolin SOD 2 GM in IV 1 EA IV ONE (06:45)
[2020-09-11] MEDS ORDERED: LIDOCAINE 1% MDV 20ML VIAL As Ordered ONE (07:10)
[2020-09-11] MEDS ORDERED: HEPARIN SOD (PORCINE) 5000UNITS/ML 1ML VIAL/SYRINGE As Ordered ONE (07:11)
[2020-09-11] MEDS ORDERED: LIDOCAINE W/EPINEPHRINE 1% 20ML VIAL As Ordered ONE (07:11)
[2020-09-11] MEDS ORDERED: propofoL 200 MG/20 ML VIAL As Ordered ONE (07:12)
[2020-09-11] MEDS ORDERED: fentaNYL 100 MCG/2 ML INJECTION (J3010) As Ordered ONE (07:12)
[2020-09-11] MEDS ORDERED: MIDAZOLAM INJ 2MG/2ML VIAL (J2250 PER 1MG) As Ordered ONE (07:12)
[2020-09-11] MEDS ORDERED: SUGAMMADEX SODIUM 500 MG/5 ML VIAL (BRIDION) As Ordered ONE (07:12)
[2020-09-11] MEDS ORDERED: KETOROLAC 60MG 2ML VIAL As Ordered ONE (07:12)
[2020-09-11] MEDS ORDERED: LIDOCAINE 2% 100MG/5ML SDV (FOR ANES.) As Ordered ONE (07:12)
[2020-09-11] MEDS ORDERED: ROCURONIUM BROMIDE 50 MG/5 ML VIAL As Ordered ONE (07:12)
[2020-09-11] MEDS ORDERED: ACETAMINOPHEN 1000MG 100ML IV BTL (OFIRMEV) (J0131 PER 10MG) As Ordered ONE (07:12)
[2020-09-11] MEDS ORDERED: dexameTHASONE 4 MG/ML 1ML VIAL (J1100 PER 1MG) As Ordered ONE (07:12)
[2020-09-11] MEDS ORDERED: ONDANSETRON 4MG/2ML VIAL As Ordered ONE (07:12)
--- NOTE | 2020-09-11 08:54 | ROOPDOC ---
[facility] Report Of Operation Report of Operation DATE OF PROCEDURE: 09/11/20 PREPROCEDURE DIAGNOSES: Venous insufficiency right lower extremity with nonhealing venous stasis ulceration POSTPROCEDURE DIAGNOSES: Same PROCEDURE: 1. US guided access right greater saphenous vein 2. Right greater saphenous vein radiofrequency ablation SURGEON: Marisabel Fong MD ANESTHESIA: Local and monitored anesthesia care INDICATION FOR PROCEDURE: This is 65-year-old patient with venous insufficiency and a nonhealing venous stasis ulcer of the right lower extremity who presents for right greater saphenous vein radiofrequency ablation. Risks benefits alternatives were explained and the patient is agreeable to proceed. Informed consent was obtained. REPORT OF OPERATION: Patient was brought to the OR in stable condition. Monitored anesthesia care and antibiotics were administered without complication. Her right lower extremity was prepped and draped in a sterile fashion. A timeout was performed. Local anesthesia was a business agent to skin and subcutaneous tissue over the greater saphenous vein. The greater saphenous vein was examined from the knee to the saphenofemoral junction and confirmed to be suitable for ablation. Ultrasound was used to guide access with a microneedle. A wire was passed through this access and the needle was removed. A 7 Sami sheath was placed and flushed with saline. The ablation catheter was advanced through the sheath to the saphenofemoral junction. It was confirmed to be 2 cm from the saphenofemoral junction. We then injected tumescence around the saphenous vein from the knee to the groin. We then performed radiofrequency ablation under ultrasound visualization and compression from the saphenofemoral junction to the knee. 8 cycles total were performed. Pressure was held at the access site as the sheath was removed. After 2 minutes good hemostasis was noted. Steri-Strips were placed over the tumescence injection sites and the access site. 4 x 4's Kerlix and Stanley wraps were used as a final dressing. The patient was then taken to recovery in stable condition. She tolerated the sedation and the procedure well. ESTIMATED BLOOD LOSS: Approximately 2 mL. COMPLICATIONS: None. PLAN: Okay to resume home diet and medications. We will see the patient back on Monday for an ultrasound to confirm patency of the saphenofemoral junction and the femoral vein and successful ablation of the greater saphenous vein. Over the weekend, it is okay for ambulation, but light activity preferred. Elevate right lower extremity above the level of the heart when at rest. Okay to continue wound care right lower extremity per wound care center orders and home health. We appreciate the opportunity to participate in the care of this patient. MARISABEL FONG MD Sep 11, 2020 08:54
[2020-09-11 09:51] VITALS: BP 148/69
--- NOTE | 2020-09-14 08:03 | REP ---
INDICATION: RIGHT VEIN ABLATION. Ultrasound guidance. COMPARISON: None. TECHNIQUE: Real-time sonographic guidance is provided to Dr. Aly mathis. FINDINGS: Sonographic guidance. IMPRESSION: Sonographic guidance is provided Dr. Munguia who performed radiofrequency ablation right greater saphenous vein. <Electronically signed by Marcio Lainez > 09/14/20 0753
== END 2020-09-11 10:00 | disposition home or self-care (01) ==
LOC: M SDC 06:28
PROVIDERS: ATTEND Surgery Vascular Surgery
DX: I87.301 Chronic venous hypertension (idiopathic) without complications of right lower extremity (principal); L97.819 Non-pressure chronic ulcer of other part of right lower leg with unspecified severity; E11.51 Type 2 diabetes mellitus with diabetic peripheral angiopathy without gangrene; F40.240 Claustrophobia; G47.33 Obstructive sleep apnea (adult) (pediatric); J44.9 Chronic obstructive pulmonary disease, unspecified; J45.30 Mild persistent asthma, uncomplicated; K21.9 Gastro-esophageal reflux disease without esophagitis; L71.9 Rosacea, unspecified; M12.9 Arthropathy, unspecified; Z78.0 Asymptomatic menopausal state; Z79.84 Long term (current) use of oral hypoglycemic drugs; Z79.899 Other long term (current) drug therapy; Z88.1 Allergy status to other antibiotic agents; Z91.011 Allergy to milk products; Z91.013 Allergy to seafood; Z91.048 Other nonmedicinal substance allergy status; Z96.1 Presence of intraocular lens; Z96.652 Presence of left artificial knee joint; Z98.41 Cataract extraction status, right eye; Z98.42 Cataract extraction status, left eye; Z98.51 Tubal ligation status
CPT/HCPCS: 36475; 76940; C1894; J0131; J0690; J1100; J1644; J1885; J2250; J2405; J3010

== ENCOUNTER → 2020-09-14 | Outpatient (CLI) | payer OTHER ==
--- NOTE | 2020-09-14 09:34 | REP ---
INDICATION: CHRONIC VENOUS HTN W ULCER AND INFLAMMATION OF RT LOWER EXT. STATUS POST VENOUS ABLATION SURGERY. COMPARISON: 07/20/2020 TECHNIQUE: Multiple ultrasonographic images of the deep venous structures of the right thigh were obtained from the level of the common femoral vein to the popliteal vein in the longitudinal and transverse scan planes along with Doppler interrogation and color flow Doppler imaging. FINDINGS: There is no abnormal echogenic material seen within any of the visualized deep venous structures that would suggest acute thrombosis. Coaptation is unremarkable throughout. Doppler interrogation shows an expected response to respiratory variability and augmentation. The color flow Doppler images show what appears to be a normal vascular pattern throughout. There is a thrombus occluding the greater saphenous vein from its distal course to proximal and about 1.6 cm from its junction with the common femoral vein. IMPRESSION: There is no ultrasonographic evidence of deep venous thrombosis involving any of the visualized deep venous structures of the right thigh as described above. Occlusion of the right greater saphenous vein following ablation surgery from its distal most aspect near the knee until 1.6 cm from its junction with the common femoral vein. Accredited by the [employer] in Vascular Peripheral Ultrasound. <Electronically signed by Brendon Latif > 09/14/20 [id number]
== END ==
LOC: M RAD 08:48
PROVIDERS: ATTEND Physician Assistant
DX: I87.331 Chronic venous hypertension (idiopathic) with ulcer and inflammation of right lower extremity (principal); Z48.812 Encounter for surgical aftercare following surgery on the circulatory system

== ENCOUNTER → 2020-11-20 | Outpatient (CLI) | payer OTHER ==
--- NOTE | 2020-11-21 07:00 | ECWPNPC ---
PATIENT NAME: TREVOR ELLISON : 1955 GENDER: FEMALE VISIT DATE: 11/20/2020 DISCHARGE DATE: 11/20/20 1137 VISIT LOCKED DATE TIME: PHYSICIAN: RYAN YATES PHYSICIAN PAGER NO: ACTIVE RESOURCE: RYAN YATES REASON FOR APPOINTMENT 1. RIGHT LEG HISTORY OF PRESENT ILLNESS PAIN CENTER INTAKE QUESTIONS: DO YOU HAVE A HISTORY OF MRSA? :NO DO YOU TAKE A BLOOD THINNERS? :NO DO YOU HAVE ANY BLEEDING DISORDERS? :NO ANY NEW NUMBNESS OR WEAKNESS IN YOUR LEGS OR ARMS? :NO ANY PACEMAKER,DEFIBRILLATOR, OR DORSAL COLUMN STIMULATOR? :NO DO YOU HAVE ANY RASHES OR OPEN SORES? :YES PATIENT STATES SHE HAS AN OPEN AREA ON HER "RIGHT FELIPE." ARE YOU ALLERGIC TO IV DYE? :NO ARE YOU DIABETIC? :NO ANY NEW PROBLEMS WITH YOUR MEDICATIONS? :NO HAVE YOU RECEIVED A VACCINE IN THE PAST 30 DAYS? :NO DO YOU PLAN TO RECEIVE A VACCINE IN THE NEXT 21 DAYS? :NO DO YOU NEED ANY PRESCRIPTION? :NO DO YOU TAKE ANY IMMUNOSUPPRESSIVE MEDICATIONS? :NO IS THERE A CHANCE YOU COULD BE ? :NO ARE YOU BREAST FEEDING? :NO GENERAL: HERE FOR FOLLOW-UP AND MEDICATION MANAGEMENT FOR PERSISTENT RIGHT ANTERIOR FELIPE WOUND PAIN WITH DRESSING CHANGES. SINCE HER LAST VISIT 3 MONTHS AGO PATIENT HAS HAD VASCULAR SURGERY ON HER RIGHT LEG. HAS HAD MARKED IMPROVEMENT IN HER RIGHT STASIS ULCER. SEES WOUND MANAGEMENT WEEKLY. TOLERATING WOUND/DRESSING CHANGE WELL. NOT IN NEED OF TAKING HYDROCODONE BEFORE AND AFTER DRESSING CHANGES. OVERALL DOING VERY WELL. -. FALL RISK SCREENING: SCREENING :NO FALLS REPORTED IN THE LAST YEAR PAIN SCREENING: PATIENT HAS A COMPLAINT OF ACUTE OR CHRONIC PAIN :YES LOCATION OF PAIN:LEG(S) RIGHT LOWER LEG INTENSITY OF PAIN (SCALE OF 1 TO 10):1 WHAT DOES YOUR PAIN FEEL LIKE:SORE DURATION:CONSTANT PAIN IS INCREASED BY:OTHERS TOUCH PAIN IS DECREASED BY:USE OF PAIN MEDICATIONS TREATMENT/MEDICATIONS USED TO MANAGE PAIN:OTC PAIN RELIEVERS, NSAIDS NAPROXEN, IBUPROFEN NURSING NOTE: -. CURRENT MEDICATIONS TAKING BUDESONIDE 0.25 MG/2ML SUSPENSION 2 ML INHALATION TWICE A DAY TAKING OMEPRAZOLE 20 MG TABLET DELAYED RELEASE 2 TABLET ORALLY ONCE A DAY TAKING METRONIDAZOLE 0.75 % CREAM 1 APPLICATION TO AFFECTED AREA EXTERNALLY QPM AFTER WASH TO FACE TAKING VENTOLIN HFA 108 (90 BASE) MCG/ACT AEROSOL SOLUTION 2 PUFFS NEEDED INHALATION EVERY 4 HOURS NEEDED TAKING ZYRTEC 10 MG TABLET 1 TABLET NEEDED ORALLY ONCE A DAY TAKING BENADRYL 25 MG CAPSULE 1 CAPSULE ORALLY ONCE A DAY IN AM, NOTES: FOR ALLERGY SYMPTOMS, PT DENIES DAY TIME DROWSINESS TAKING TRIAMCINOLONE ACETONIDE 0.1 % CREAM 1 APPLICATION EXTERNALLY TWO TIMES A WEEK TAKING NAPROXEN 500 MG TABLET 1-2 TABLETS WITH FOOD OR MILK NEEDED ORALLY EVERY 12 HRS NEEDED TAKING LISINOPRIL 5 MG TABLET 1 TABLET ORALLY ONCE A DAY TAKING HYDROCODONE-ACETAMINOPHEN 5-325 MG TABLET 1 TO 2 TAB ORALLY Q4-6 HR PRN PAIN MDD4 TAKING IBUPROFEN 800 MG TABLET 1 TABLET WITH FOOD OR MILK NEEDED ORALLY NIGHTLY TAKING GLUCOMETER DIRECTED SUBCUTANEOUSLY ONCE A DAY, RECHECK IN 15MIN IF FSBS<70 OR PERSISTENT HYPOGLYCEMIA SYMPTOMS TAKING TEST STRIPS - DIRECTED SUBCUTANEOUSLY ONCE A DAY, RECHECK IN 15MIN IF FSBS<70 OR PERSISTENT HYPOGLYCEMIA SYMPTOMS TAKING LANCETS 28G - MISCELLANEOUS DIRECTED SUBCUTANEOUSLY ONCE A DAY, RECHECK IN 15MIN IF FSBS<70 OR PERSISTENT HYPOGLYCEMIA SYMPTOMS TAKING ALCOHOL WIPES 70 % PAD DIRECTED SUBCUTANEOUSLY ONCE A DAY, RECHECK IN 15MIN IF FSBS<70 OR PERSISTENT HYPOGLYCEMIA SYMPTOMS TAKING QVAR REDIHALER 40 MCG/ACT AEROSOL BREATH ACTIVATED 1 PUFF INHALATION TWICE DAILY TAKING SALICYLIC ACID 17 % SOLUTION 1 APPLICATION NEEDED EXTERNALLY ONCE A DAY NOT-TAKING METFORMIN HCL 1000 MG TABLET TAKE ONE TABLET BY MOUTH EVERY DAY NOT-TAKING CHLORTHALIDONE 25 MG TABLET 1/2 TABLET IN THE MORNING WITH FOOD ORALLY ONCE A DAY NOT-TAKING GABAPENTIN 600 MG TABLET 1 TABLET ORALLY THREE TIMES DAILY MEDICATION LIST REVIEWED AND RECONCILED WITH THE PATIENT PAST MEDICAL HISTORY GERD ALLERGIES ASTHMA ROSACEA (DR. AL) OSTEOARTHRITIS: BILATERAL KNEES (DR. LAURE GARCIA) CHRONIC BILATERAL LEG EDEMA (POOR COMPLIANCE WITH FUROSEMIDE) BLADE (RECENT SLEEP STUDY 05/2019, SEES DR. TYLER OF NEUROLOGY); HISTORY OF ACUTE HYPOXEMIC RESPIRATORY FAILURE REQUIRING INTUBATION S/P LEFT KNEE REPLACEMENT ABNORMAL EKG W/O EVIDENCE OF [place]/MYOCARDIAL PERFUSION DEFECT, NUCLEAR STRESS 03/06/17 WITH EF 75% (HEART FAILURE WITH PRESERVED EF), SEENoel GARAY/DR. JORDAN ELEVATED BP W/O DX OF HTN T2DM, GOAL A1C < 6.5 HX DEPRESSION, TREATED WITH COUNSELLING EMPHYSEMA CHRONIC VENOUS HYPERTENSION WITH ULCER AND INFLAMMATION OF RIGHT LOWER EXTREMITY ALLERGIES DOXYCYCLINE (ROSACEA): DIARRHEA - ALLERGY ADHESIVE TAPE SURGICAL HISTORY 3 C-SECTIONS CARPAL TUNNEL: 2009 LEFT HAND CARACT SURGERY OU 10/05/1210/26/2016 TONSILLECTOMY 1960 TUBAL LIGATION 1985 RETINA SURGERY LEFT EYE SEPTEMBER 07, 2018 LEFT KNEE REPLACEMENT 01/2019 VEIN PROCEDURE IN RIGHT LEG 09/2020 FAMILY HISTORY FATHER: 75 YRS, DEMENTIA, KNEE PROBLEMS, IRREGULAR HEART BEAT, COPD MOTHER: 83 YRS, COPD, CHF SIBLINGS: ALIVE, CANCER, BREAST SISTER AGE 49 SON(S): ALIVE DAUGHTER(S): ALIVE PATERNAL AUNT: , CANCER, BREAST 3 SON(S) , 3 DAUGHTER(S) . 2 PATERNAL COUSINS AND SISTER WITH BREAST CANCERPT WITH PRECANCEROUS ON FACE. SOCIAL HISTORY GENERAL: TOBACCO USE ARE YOU A:NONSMOKER NEVER SMOKER LATEX QUESTIONNAIRE LATEX ALLERGY : HAVE YOU EVER DEVELOPED ANY TYPE OF REACTION AFTER HANDLING LATEX PRODUCTS SUCH RUBBER GLOVES, CONDOMS, DIAPHRAGMS, BALLOONS, SOCKS, OR UNDERWEAR?NO LATEX ALLERGY : HAVE YOU EVER DEVELOPED ANY TYPE OF REACTION DURING OR AFTER DENTAL APPOINTMENT, VAGINAL/RECTAL EXAMINATION, SURGICAL PROCEDURE, OR ANY OTHER EXPOSURE?NO LATEX RISK : HAVE YOU EVER HAD ANY DIFFICULTY BREATHING OR HIVES AFTER EATING OR HANDLING ANY FRUITS, OR VEGETABLES; SUCH KIWI, BANANAS, STONE FRUITS, OR CHESTNUTSNO LATEX RISK : DO YOU HAVE A PREVIOUS PERSONAL HISTORY OF MORE THAN NINE SURGERIES, SPINA BIFIDA, OR REPEATED CATHERIZATIONS? NO LATEX RISK : ARE YOU FREQUENTLY EXPOSED TO LATEX PRODUCTS IN YOUR OCCUPATION?NO DATE ASKED : 08/19/2020 BMI CARE GOAL FOLLOW-UP ABOVE NORMAL BMI FOLLOW-UPGIVING ENCOURAGEMENT TO EXERCISE ALCOHOL SCREENING DID YOU HAVE A DRINK CONTAINING ALCOHOL IN THE PAST YEAR?NO POINTS0 INTERPRETATIONNEGATIVE RECREATIONAL DRUG USE DRUG USE?NO DENIES 03/10/20 CAFFEINE CAFFEINE USE?YES HOW OFTEN AND HOW MUCH? 1 PER DAY HIV / HEP-C SCREENING HIV TEST OFFERED TO PATIENT:YES DATE OFFERED:07/22/2019 TEST ACCEPTED:NO REASON:PATIENT DECLINED BROCHURE PROVIDED TO PATIENTYES GNOSTICISM GNOSTICISM NO LUTHERAN BELIEFS THAT WOULD IMPACT HEALTH CARE. 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 DIET: REGULAR. EXERCISE: NO REGULAR EXERCISE. MARITAL STATUS: . OTHERS AT HOME: 1 GRANDKID IN THE HOME, MULTIPLE CATS AND 2 DOGS. PAIN CLINIC PFS, CLERGY, PUBLIC HEALTH REFERRALS WAS THE PROVIDER NOTIFIED OF ANY PERTINENT INFO?YES HAS THE PATIENT BEEN EDUCATED REGARDING HIS/HER PLAN OF CARE?YES HAS THE PATIENT BEEN EDUCATED REGARDING PAIN, THE RISK FOR PAIN, THE IMPORTANCE OF EFFECTIVE PAIN MANAGEMENT, AND THE PAIN ASSESSMENT PROCESS?YES ADVANCE DIRECTIVE ADVANCE DIRECTIVE DISCUSSED WITH PATIENT:YES HCP - DAUGHTERS JOAN AND LORENZO HOSPITALIZATION/MAJOR DIAGNOSTIC PROCEDURE EPILEPSY TITRATING OFF OF PHENOBABRITAL MANY YEARS AGO TOTAL KNEE 01/2019 REVIEW OF SYSTEMS CONSTITUTIONAL: ANY RECENT FEVER NO . CHILLS NO . WEIGHT CHANGE OF UNKNOWN REASONS NO . GASTROENTEROLOGY: NEW UNEXPLAINABLE CHANGES IN BOWEL CONTROL NO . CONSTIPATION NO . GENITOURINARY: ANY NEW CHANGE IN BLADDER CONTROL? NO . NEUROLOGY: NEW ONSET DIZZINESS OR NEUROLOGICAL CHANGES NOT MENTIONED NO . NEW NUMBNESS OR PAIN PATTERNS NOT MENTIONED AND PERTINENT TO TODAY'S VISIT NO . CARDIOLOGY: NEW CHEST PRESSURE NO . NEW CHEST PAIN NO . RESPIRATORY: UNEXPLAINABLE COUGH NO . NEW SHORTNESS OF BREATH NO . VITAL SIGNS WT 259.8 LBS, HT 62.5 IN, BMI 46.76 INDEX, BP 128/61 MM HG, HR 66 /MIN, RR 18 /MIN, TEMP 99.4 F, OXYGEN SAT % 97, SAFE IN ENV? (Y/N) YES, REVIEWED BY: DINA MOODY MA. EXAMINATION GENERAL EXAMINATION: GENERALAWAKE,ALERT ,PLEASANT . PSYCHAFFECT NORMAL . LUNGS:LUNG SÁNCHEZ ARE CLEAR TO AUSCULTATION BILATERALLY. GOOD MOVEMENT OF AIR . HEART:S1, S2 IN A REGULAR RATE AND RHYTHM. NO SIGNIFICANT MURMURS, RUBS OR GALLOPS NOTED . ASSESSMENTS NON-PRESSURE CHRONIC ULCER OF OTHER PART OF RIGHT LOWER LEG WITH FAT LAYER EXPOSED - L97.812 (PRIMARY) CHRONIC PRESCRIPTION OPIATE USE - Z79.891 TREATMENT NON-PRESSURE CHRONIC ULCER OF OTHER PART OF RIGHT LOWER LEG WITH FAT LAYER EXPOSED NOTES: PATIENT WILL CALL US IF NEEDED FOR FOLLOW-UP. PROCEDURE CODES FA211 ESTABILISHED PATIENT [facility] CHARGE DISPOSITION & COMMUNICATION FOLLOW UP NO F/U PATIENT WILL CALL (REASON: WOUND PAIN MANAGEMENT) ELECTRONICALLY SIGNED BY DANIELITO RAJAN ON 11/20/2020 AT 11:50 AM EST DISCLAIMER : THIS IS A VISIT SUMMARY EXTRACTED FROM THE [employer] CHART. IT IS NOT A COPY OF THE [employer] PROGRESS NOTE. ORQUIDEA
== END ==
LOC: M PAIN 10:30
PROVIDERS: ATTEND Nurse Practitioner Family
DX: L97.812 Non-pressure chronic ulcer of other part of right lower leg with fat layer exposed (principal); K21.9 Gastro-esophageal reflux disease without esophagitis; J45.909 Unspecified asthma, uncomplicated; G47.33 Obstructive sleep apnea (adult) (pediatric); E11.9 Type 2 diabetes mellitus without complications; Z86.59 Personal history of other mental and behavioral disorders; Z96.652 Presence of left artificial knee joint; Z88.1 Allergy status to other antibiotic agents; Z91.09 Other allergy status, other than to drugs and biological substances; E66.01 Morbid (severe) obesity due to excess calories; Z68.42 Body mass index [BMI] 45.0-49.9, adult; Z79.891 Long term (current) use of opiate analgesic; Z79.899 Other long term (current) drug therapy

== ENCOUNTER 2021-01-29 14:10 | Emergency (ER) | payer OTHER ==
[~2021-01-29] VITALS: Ht 160 cm; Wt 120.5 kg
[~2021-01-29 14:10] MED LIST changes: -LISI-542 PO; +LISI-898 PO; +NAPR-849 PO; -NAPR250T4 PO
--- NOTE | 2021-01-29 15:21 | REP ---
INDICATION: worsening shortness of breath COMPARISON: 03/12/2019. TECHNIQUE: PA/Lateral FINDINGS: Lungs: Clear, no infiltrate. Heart: Normal in size. Mediastinum: Mediastinal silhouette unremarkable. Pleural angles: Unremarkable.. Bones and soft tissues: There are mild degenerative changes of the spine without compression deformity. IMPRESSION: No acute pulmonary disease. <Electronically signed by Diego Joe > 01/29/21 [id number]
[2021-01-29] MEDS: COMBIVENT RESPIMAT 100-20MCG INHALER 4GM INH SCH ×3 (17:00→17:56)
[2021-01-29 17:29] LABS: BASO % 0.4 % (0.0-1.0); EOS # 0.3 10^3/uL (0.0-0.5); EOS % 3.1 % (0.0-3.0); HEMATOCRIT 41.9 % (36.0-47.0); HEMOGLOBIN 12.7 g/dl (12.0-15.5); LYMPH # 3.1 10^3/uL (1.5-5.0); LYMPH % 30.8 % (24.0-44.0); MEAN CORPUSCULAR HEMOGLOBIN 25.2 pg (27.0-33.0); MEAN CORPUSCULAR HGB CONC 30.3 g/dl (32.0-36.5); MEAN CORPUSCULAR VOLUME 83.3 fl (80.0-96.0); MONO # 0.8 10^3/uL (0.0-0.8); MONO % 7.9 % (2.0-8.0); NEUTROPHILS # 5.8 10^3/uL (1.5-8.5); NEUTROPHILS % 57.5 % (36.0-66.0); PLATELET COUNT, AUTOMATED 281 10^3/uL (150-450); RED BLOOD COUNT 5.03 10^6/uL (4.00-5.40); WHITE BLOOD COUNT 10.1 10^3/uL (4.0-10.0)
[2021-01-29 18:17] LABS: RSV AMPLIFICATION NEGATIVE (NEGATIVE)
[2021-01-29] MEDS ORDERED: ISOVUE-370 76% 100ML VIAL As Ordered ONE (18:25)
[2021-01-29 18:44] LABS: CK-MB VALUE MASS 2.3 NG/ML (<3.6); MB/CK RELATIVE INDEX 1.58 (< OR =4); TROPONIN I 0.03 NG/ML (< 0.10)
--- NOTE | 2021-01-29 19:25 | REPVR ---
PROCEDURE INFORMATION: Exam: CT Angiography Chest With Contrast Exam date and time: 01/29/2021 4:20 PM Age: 65 years old Clinical indication: Shortness of breath x 2 wks TECHNIQUE: Imaging protocol: Computed tomographic angiography of the chest with contrast. 3D rendering (Not supervised by radiologist): MIP and/or 3D reconstructed images were created by the technologist. Radiation optimization: All CT scans at this facility use at least one of these dose optimization techniques: automated exposure control; mA and/or kV adjustment per patient size (includes targeted exams where dose is matched to clinical indication); or iterative reconstruction. Contrast material: ISOVUE 370; Contrast volume: 75 ml; Contrast route: INTRAVENOUS (IV); COMPARISON: CT ANGIO CHEST 03/12/2019 9:40 PM FINDINGS: Limitations: Respiratory motion artifact degrades the image quality. Pulmonary arteries: There is no pulmonary embolism in the main, lobar, or segmental pulmonary arteries. The timing of the contrast bolus was suboptimal for the assessment of the subsegmental pulmonary arteries, which are poorly opacified and degraded by respiratory motion artifact. Aorta: The thoracic aorta is intact and patent. There is no thoracic aortic aneurysm, pseudoaneurysm, penetrating atherosclerotic ulcer, intramural hematoma, or dissection. Trachea: Normal. Bronchial tree: Normal. Lungs: There is mild atelectasis in the right middle lobe and inferior lingula. The lungs are otherwise clear. There is no lung consolidation or mass. No emphysematous changes or interstitial lung disease is noted. Pleural spaces: Normal. No pneumothorax or pleural effusion. Heart: The heart is enlarged. The ratio of the diameter of the right ventricle to the diameter of the left ventricle measures less than 1, which is within normal limits and there is no CT evidence for a right ventricular strain. No pericardial effusion is noted. There are coronary artery calcifications. Mediastinal space: No mediastinal mass, fluid collection, or pneumomediastinum. Lymph nodes: No enlarged lymph nodes. Limited liver: There is fatty infiltration of the liver. The liver was not fully imaged. Bones/joints: There is no fracture or dislocation. No suspicious osteolytic or osteoblastic lesion. There are endplate spurs in the thoracic spine. Soft tissues: Unremarkable. No soft tissue fluid collection. IMPRESSION: 1. No pulmonary embolism in the main, lobar, or segmental pulmonary arteries. The timing of the contrast bolus was suboptimal for the assessment of the subsegmental pulmonary arteries, which are poorly opacified and degraded by respiratory motion artifact. 2. Cardiomegaly. 3. Fatty liver. Electronically signed by: Lowell Jones On 01/29/2021 19:25:08 PM
[2021-01-29 20:19] LABS: POTASSIUM SERUM 5.7 MEQ/L (3.5-5.1)
[2021-01-29 20:47] LABS: CK-MB VALUE MASS 2.4 NG/ML (<3.6); MB/CK RELATIVE INDEX 3.29 (< OR =4); TROPONIN I 0.03 NG/ML (< 0.10)
[2021-01-29] MEDS ORDERED: IPRA0.00 NEB (21:01)
[2021-01-29] MEDS ORDERED: CLEV1MIS25 XX (21:01)
[2021-01-29 21:23] VITALS: BP 153/82
--- NOTE | 2021-01-29 22:36 | ECGEPIP ---
[facility] - ED Test Date: 2021-01-29 Pat Name: TREVOR ELLISON Department: Room: - Gender: Female [employer]illing Machine Set Up Operator: ANTHONY : 1955 Requested By: LYNDSEY Hernandes PA-C Order Number: [id number] Reading MD: Gianni Fragoso Measurements Intervals [place] Rate: 66 P: 44 AR: 176 QRS: 14 QRSD: 96 T: 26 QT: 396 QTc: 415 Interpretive Statements Sinus rhythm with sinus arrythmia Similar to tracing done 11-02-18 Electronically Signed on 01-29-2021 22:36:53 EDT by Gianni Fragoso
== END 2021-01-29 21:28 | disposition home or self-care (01) ==
LOC: M ED 14:10
DX: R06.02 Shortness of breath (principal); J43.9 Emphysema, unspecified; I51.7 Cardiomegaly; K76.0 Fatty (change of) liver, not elsewhere classified; E11.9 Type 2 diabetes mellitus without complications; J44.9 Chronic obstructive pulmonary disease, unspecified; K21.9 Gastro-esophageal reflux disease without esophagitis; Z88.1 Allergy status to other antibiotic agents; Z91.011 Allergy to milk products; Z91.013 Allergy to seafood; Z79.899 Other long term (current) drug therapy
CPT/HCPCS: 36415; 71046; 71275; 80047; 82550; 82553; 84132; 85025; 87631; 93005; 94640; 99284; Q9967

== ENCOUNTER → 2021-01-30 | Outpatient (CLI) | payer OTHER ==
[~2021-01-30] MED LIST changes: +CLEV1MIS25 XX; +IPRA0.00 NEB
[2021-01-30 17:11] LABS: BLOOD UREA NITROGEN 19 MG/DL (7-18); CALCIUM LEVEL 8.5 MG/DL (8.8-10.2); CARBON DIOXIDE LEVEL 30 MEQ/L (21-32); CHLORIDE LEVEL 104 MEQ/L (98-107); CREATININE FOR GFR 0.74 MG/DL (0.55-1.30); GLOMERULAR FILTRATION RATE > 60.0 (>45); GLUCOSE, FASTING 129 MG/DL (70-100); POTASSIUM SERUM 4.6 MEQ/L (3.5-5.1); SODIUM LEVEL 140 MEQ/L (136-145)
== END ==
LOC: M LAB 15:46
PROVIDERS: ATTEND Physician Assistant
DX: E87.5 Hyperkalemia (principal)

== ENCOUNTER → 2021-02-18 | Outpatient (CLI) | payer OTHER ==
--- NOTE | 2021-02-18 14:07 | REP ---
INDICATION: BILATERAL LOWER EXTREMITY EDEMA COMPARISON: 09/14/2020. TECHNIQUE: Real time compression and duplex Doppler interrogation of the bilateral lower extremity deep venous system is performed. FINDINGS: Bilaterally, the common femoral, superficial femoral and popliteal veins are fully compressible with transducer pressure and demonstrate normal spontaneous and phasic flow, without evidence of deep venous thrombosis. IMPRESSION: No evidence of deep venous thrombosis of the bilateral lower extremity femoral popliteal venous system. <Electronically signed by Diego Joe > 02/18/21 [id number]
== END ==
LOC: M RAD 12:44
PROVIDERS: ATTEND Student in an Organized Health Care Education/Training Program
DX: R60.0 Localized edema (principal)

== ENCOUNTER → 2021-02-25 | Outpatient (REF) | payer OTHER ==
[2021-02-25 17:08] LABS: ALBUMIN 3.5 GM/DL (3.2-5.2); ALT/SGPT 25 U/L (12-78); BILIRUBIN,DIRECT < 0.1 MG/DL (0.0-0.2); BILIRUBIN,TOTAL 0.3 MG/DL (0.2-1.0); BLOOD UREA NITROGEN 20 MG/DL (7-18); CALCIUM LEVEL 9.2 MG/DL (8.8-10.2); CARBON DIOXIDE LEVEL 33 MEQ/L (21-32); CHLORIDE LEVEL 103 MEQ/L (98-107); CREATININE FOR GFR 0.71 MG/DL (0.55-1.30); GLOMERULAR FILTRATION RATE > 60.0 (>45); GLUCOSE, FASTING 110 MG/DL (70-100); POTASSIUM SERUM 4.3 MEQ/L (3.5-5.1); SODIUM LEVEL 140 MEQ/L (136-145); TOTAL PROTEIN 7.2 GM/DL (6.4-8.2)
== END ==
LOC: M SFHCPLAZ 14:57 → M SFHCADAM 15:02
PROVIDERS: ATTEND Family Medicine
DX: R06.00 Dyspnea, unspecified (principal)

== ENCOUNTER → 2021-03-16 | Outpatient (REF) | payer OTHER | LOC: M SFHCPLAZ 11:17 | PROVIDERS: ATTEND Family Medicine | DX: Z53.9 Procedure and treatment not carried out, unspecified reason (principal); E11.9 Type 2 diabetes mellitus without complications ==

== ENCOUNTER → 2021-03-19 | Outpatient (REF) | payer OTHER ==
[2021-03-19 13:18] LABS: HEMOGLOBIN A1c 7.1 %
== END ==
LOC: M SFHCPLAZ 11:22 → M SFHCADAM 11:26
PROVIDERS: ATTEND Family Medicine
DX: E11.9 Type 2 diabetes mellitus without complications (principal)

== ENCOUNTER → 2021-03-26 | Outpatient (CLI) | payer OTHER ==
--- NOTE | 2021-03-29 07:08 | ECHO ---
DATE OF PROCEDURE: 03/26/2021 Age: 65 Gender: Female Height: 61 inches Weight: 280 pounds Body surface area: 2.17 m2 PATIENT LOCATION: Outpatient. REFERRING PHYSICIAN: Jannie Villalobos M.D. INDICATION: Dyspnea. MEASUREMENTS: 2D Measurements: RV 3.9 cm LV 5.3 cm Septum 1.2 cm Posterior wall 1.2 cm Aortic Root 3.5 cm LA 4.1 cm LVEF 70 % Doppler Measurements: AV 1.5 m/s LVOT 1.0 m/s LVOT diameter 2.0 cm MV-E 80, A 90, E/A ratio 0.9 Early mitral deceleration time 285 msec E prime medial 7, A prime medial 11.4, E prime lateral 10.7 Average E/E prime ratio 9/PCWP - 13 mmHg PV 1.0 m/s Pulmonary artery acceleration time 95 msec PASP 40 mmHg IVC 2.3 cm COMMENTS: Normal sinus rhythm/sinus arrhythmia without intraventricular conduction disturbance. Technically challenging study in light of the patients body habitus, but diagnostically useful information was still obtained. M-mode and two-dimensional echocardiography was performed with pulse, continuous wave, color flow, and tissue Doppler studies. At least borderline concentric left ventricular hypertrophy with hyperkinetic wall motion. Mildly dilated left atrium with grade 1 LV diastolic dysfunction with currently normal estimated mean left atrial pressure. Normal right ventricular size and wall motion with Doppler evidence of at least moderate pulmonary hypertension. At least borderline dilated right atrium and mildly dilated inferior vena cava with reduced respiratory collapse suggestive of an elevated central venous pressure. Normal aortic dimensions. Subtle aortic valvular sclerosis without functional abnormality. Very mild degenerative changes of her mitral valvular apparatus without inflow tract obstruction and only very mild posteriorly directed insufficiency. Normal appearing tricuspid valve with very mild insufficiency. Unable to detect any intracardiac mass and no apparent pericardial effusion. Comparing todays study with 01/22/2019, there did not appear to be a dramatic change. MTDD
== END ==
LOC: M CARPUL 10:29
PROVIDERS: ATTEND Student in an Organized Health Care Education/Training Program
DX: R06.00 Dyspnea, unspecified (principal)

== ENCOUNTER → 2021-05-25 | Outpatient (REF) | payer OTHER ==
[~2021-05-25] MED LIST changes: +OMEP40CA4 PO; -OMEP40CA97 PO
[2021-05-25 15:27] LABS: BLOOD UREA NITROGEN 19 MG/DL (7-18); CARBON DIOXIDE LEVEL 35 MEQ/L (21-32); CHLORIDE LEVEL 102 MEQ/L (98-107); CREATININE FOR GFR 0.83 MG/DL (0.55-1.30); GLOMERULAR FILTRATION RATE > 60.0 (>45); GLUCOSE, FASTING 132 MG/DL (70-100); NT-PRO BNP 78 PG/ML (<125); POTASSIUM SERUM 4.8 MEQ/L (3.5-5.1); SODIUM LEVEL 141 MEQ/L (136-145); T UPTAKE 33 % (30-39); THYROXINE (T4) 6.2 UG/DL (4.5-12.0)
== END ==
LOC: M LABDRWAD 12:38
PROVIDERS: ATTEND Student in an Organized Health Care Education/Training Program
DX: R22.0 Localized swelling, mass and lump, head (principal); R13.12 Dysphagia, oropharyngeal phase

== ENCOUNTER → 2021-05-25 | Outpatient (CLI) | payer OTHER ==
--- NOTE | 2021-05-25 11:19 | REP ---
INDICATION: R06.00 EXERTIONAL DYSPNEA. COMPARISON: Comparison chest x-ray January 29, 2021. TECHNIQUE: Two views.. FINDINGS: There is a zone of coarse linear platelike atelectasis in the left inferior lung zone on today's chest x-ray. No definite infiltrate. The pleural angles are sharp. The heart is enlarged similar to the prior study. Pulmonary vasculature is cephalized. There is no evidence of pulmonary edema. Degenerative changes are seen in the thoracic spine along with dextroconvex thoracolumbar curvature. IMPRESSION: Mild cardiomegaly. Platelike atelectasis left base. Pulmonary vascular cephalization. Mild CHF pattern.. <Electronically signed by Marcio Lainez > 05/25/21 [id number]
== END ==
LOC: M ADAMS 09:09
PROVIDERS: ATTEND Student in an Organized Health Care Education/Training Program
DX: R06.00 Dyspnea, unspecified (principal)

== ENCOUNTER → 2021-06-18 | Outpatient (REF) | payer OTHER ==
[2021-06-18 17:40] LABS: BLOOD UREA NITROGEN 19 MG/DL (7-18); CARBON DIOXIDE LEVEL 32 MEQ/L (21-32); CHLORIDE LEVEL 104 MEQ/L (98-107); CREATININE FOR GFR 0.84 MG/DL (0.55-1.30); GLOMERULAR FILTRATION RATE > 60.0 (>45); GLUCOSE, FASTING 120 MG/DL (70-100); POTASSIUM SERUM 4.1 MEQ/L (3.5-5.1); SODIUM LEVEL 142 MEQ/L (136-145)
== END ==
LOC: M SFHCPLAZ 16:33 → M WUC 16:33
PROVIDERS: ATTEND Student in an Organized Health Care Education/Training Program
DX: I50.9 Heart failure, unspecified (principal)

== ENCOUNTER → 2021-06-24 | Outpatient (CLI) | payer OTHER ==
[~2021-06-24] MED LIST changes: +E-Z-GAS II EFFERVESCENT PACKET (SODIUM BICARB./CITRIC ACID/SIMETHICONE) As Ordered ONE; +E-Z-HD 98% w/w 340GM SUSP BTL As Ordered ONE; +E-Z-PAQUE 96% w/w SUSP 176GM BTL As Ordered ONE
== END ==
LOC: M RAD 09:51
PROVIDERS: ATTEND Otolaryngology
DX: K21.9 Gastro-esophageal reflux disease without esophagitis (principal)

== ENCOUNTER → 2021-06-28 | Outpatient (CLI) | payer OTHER | LOC: M RAD 09:26 | PROVIDERS: ATTEND Otolaryngology | DX: K21.9 Gastro-esophageal reflux disease without esophagitis (principal) ==

== ENCOUNTER → 2021-09-22 | Outpatient (REF) | payer OTHER ==
[~2021-09-22] MED LIST changes: -E-Z-GAS II EFFERVESCENT PACKET (SODIUM BICARB./CITRIC ACID/SIMETHICONE) As Ordered ONE; -E-Z-HD 98% w/w 340GM SUSP BTL As Ordered ONE; -E-Z-PAQUE 96% w/w SUSP 176GM BTL As Ordered ONE
== END ==
LOC: M LAB REF 14:11
PROVIDERS: ATTEND Physician Assistant
DX: D48.5 Neoplasm of uncertain behavior of skin (principal)

== ENCOUNTER → 2021-10-21 | Outpatient (REF) | payer OTHER ==
[2021-10-21 16:56] LABS: BASO # 0.1 10^3/uL (0.0-0.2); BASO % 0.5 % (0.0-1.0); EOS # 0.3 10^3/uL (0.0-0.5); EOS % 3.2 % (0.0-3.0); HEMATOCRIT 41.4 % (36.0-47.0); HEMOGLOBIN 12.6 g/dl (12.0-15.5); LYMPH # 3.2 10^3/uL (1.5-5.0); LYMPH % 33.4 % (24.0-44.0); MEAN CORPUSCULAR HEMOGLOBIN 25.2 pg (27.0-33.0); MEAN CORPUSCULAR HGB CONC 30.4 g/dl (32.0-36.5); MEAN CORPUSCULAR VOLUME 82.8 fl (80.0-96.0); MONO # 0.8 10^3/uL (0.0-0.8); MONO % 8.5 % (2.0-8.0); NEUTROPHILS # 5.2 10^3/uL (1.5-8.5); PLATELET COUNT, AUTOMATED 306 10^3/uL (150-450); WHITE BLOOD COUNT 9.6 10^3/uL (4.0-10.0)
[2021-10-21 17:24] LABS: ALBUMIN 3.3 GM/DL (3.2-5.2); ALT/SGPT 25 U/L (12-78); BILIRUBIN,DIRECT 0.1 MG/DL (0.0-0.2); BILIRUBIN,TOTAL 0.3 MG/DL (0.2-1.0); BLOOD UREA NITROGEN 22 MG/DL (7-18); CALCIUM LEVEL 9.4 MG/DL (8.8-10.2); CARBON DIOXIDE LEVEL 34 MEQ/L (21-32); CHLORIDE LEVEL 102 MEQ/L (98-107); CREATININE FOR GFR 0.74 MG/DL (0.55-1.30); GLOMERULAR FILTRATION RATE > 60.0 (>45); GLUCOSE, FASTING 101 MG/DL (70-100); POTASSIUM SERUM 4.3 MEQ/L (3.5-5.1); SODIUM LEVEL 141 MEQ/L (136-145); TOTAL PROTEIN 7.3 GM/DL (6.4-8.2)
== END ==
LOC: M SFHCADAM 16:10
PROVIDERS: ATTEND Student in an Organized Health Care Education/Training Program
DX: R74.8 Abnormal levels of other serum enzymes (principal); E11.9 Type 2 diabetes mellitus without complications

== ENCOUNTER → 2022-01-28 | Outpatient (CLI) | payer OTHER ==
[~2022-01-28] MED LIST changes: -LISI-898 PO; +LISI5TAB11 PO; +POTA-151 PO; -POTA20TA6 PO
== END ==
LOC: M WHC 14:00
PROVIDERS: ATTEND Student in an Organized Health Care Education/Training Program
DX: Z12.31 Encounter for screening mammogram for malignant neoplasm of breast (principal)

== ENCOUNTER → 2022-02-02 | Outpatient (REF) | payer OTHER ==
[2022-02-02 18:32] LABS: HEMOGLOBIN A1c 7.3 %
== END ==
LOC: M SFHCPLAZ 18:01
PROVIDERS: ATTEND Student in an Organized Health Care Education/Training Program
DX: E11.9 Type 2 diabetes mellitus without complications (principal)

== ENCOUNTER → 2022-03-15 | Outpatient (CLI) | payer OTHER | LOC: M PLAIMG 10:03 | PROVIDERS: ATTEND Psychiatry & Neurology Neurology | DX: G40.89 Other seizures (principal) ==

== ENCOUNTER → 2022-04-27 | Outpatient (REF) | payer OTHER | LOC: M SFHCPLAZ 10:47 | PROVIDERS: ATTEND Family Medicine | DX: Z53.20 Procedure and treatment not carried out because of patient's decision for unspecified reasons (principal) ==

== ENCOUNTER → 2022-07-04 | Outpatient (CLI) | payer MEDICARE, OTHER ==
[2022-07-04 14:21] LABS: BLOOD UREA NITROGEN 17 MG/DL (7-18); CALCIUM LEVEL 9.1 MG/DL (8.8-10.2); CARBON DIOXIDE LEVEL 31 MEQ/L (21-32); CHLORIDE LEVEL 105 MEQ/L (98-107); CREATININE FOR GFR 0.75 MG/DL (0.55-1.30); GLOMERULAR FILTRATION RATE > 60.0 (>45); GLUCOSE, FASTING 112 MG/DL (70-100); POTASSIUM SERUM 4.7 MEQ/L (3.5-5.1); SODIUM LEVEL 139 MEQ/L (136-145)
[2022-07-04 16:10] LABS: CREATININE, URINE 98.2 MG/DL; MALB URINE SIEMENS < 5.0 MG/L
[2022-07-04 21:24] LABS: HEMOGLOBIN A1c 6.7 %
== END ==
LOC: M ADAMS 09:30
PROVIDERS: ATTEND Student in an Organized Health Care Education/Training Program
DX: E11.9 Type 2 diabetes mellitus without complications (principal)

== ENCOUNTER → 2022-11-15 | Outpatient (REF) | payer MEDICARE | LOC: M SFHCPLAZ 15:49 | PROVIDERS: ATTEND Family Medicine | DX: Z53.9 Procedure and treatment not carried out, unspecified reason (principal) ==

== ENCOUNTER → 2023-07-04 | Outpatient (REF) | payer MEDICARE ==
[2023-07-04 19:56] LABS: ALBUMIN 3.6 G/DL (3.2-5.2); ALKALINE PHOSPHATASE 104 U/L (46-116); ALT/SGPT 39 U/L (7.0-40); AST/SGOT 34 U/L (<34); BILIRUBIN,TOTAL 0.4 MG/DL (0.3-1.2); BLOOD UREA NITROGEN 17 MG/DL (9-23); CALCIUM LEVEL 9.1 MG/DL (8.3-10.6); CARBON DIOXIDE LEVEL 33 MMOL/L (20-31); CHLORIDE LEVEL 102 MMOL/L (98-107); CHOLESTEROL LEVEL 159 MG/DL (<200); CHOLESTEROL RISK RATIO 4.89 (<5); GLOMERULAR FILTRATION RATE > 60.0 (>45); GLUCOSE, FASTING 133 MG/DL (74-106); HDL CHOLESTEROL 32.5 MG/DL (>40); LDL CHOLESTEROL 99.5 MG/DL (<100); NON-HDL-C 126.5 MG/DL; POTASSIUM SERUM 4.1 MMOL/L (3.5-5.1); SODIUM LEVEL 140 MMOL/L (136-145); TOTAL PROTEIN 7.7 G/DL (5.7-8.2); TRIGLYCERIDES LEVEL 135 MG/DL (<150)
== END ==
LOC: M SFHCPLAZ 11:59
PROVIDERS: ATTEND Family Medicine
DX: E11.622 Type 2 diabetes mellitus with other skin ulcer (principal)

== ENCOUNTER → 2023-09-27 | Outpatient (REF) | payer MEDICARE | LOC: M SFHCPLAZ 10:45 | PROVIDERS: ATTEND Student in an Organized Health Care Education/Training Program | DX: R09.89 Other specified symptoms and signs involving the circulatory and respiratory systems (principal) ==

== ENCOUNTER → 2024-01-22 | Outpatient (REF) | payer OTHER ==
[2024-01-22 14:10] LABS: HEMOGLOBIN A1c 8.7 % (4.0-6.0)
== END ==
LOC: M SFHCPLAZ 09:18
PROVIDERS: ATTEND Family Medicine
DX: E11.8 Type 2 diabetes mellitus with unspecified complications (principal)

== ENCOUNTER → 2024-02-05 | Outpatient (REF) | payer OTHER | LOC: M SFHCPLAZ 17:01 | PROVIDERS: ATTEND Student in an Organized Health Care Education/Training Program | DX: J06.9 Acute upper respiratory infection, unspecified (principal) ==

== ENCOUNTER → 2024-08-26 | Outpatient (CLI) | payer MEDICARE ==
[2024-08-26 15:21] LABS: HEMATOCRIT 42.2 % (36.0-47.0); HEMOGLOBIN 13.7 g/dl (12.0-15.5); MEAN CORPUSCULAR HGB CONC 32.5 g/dl (32.0-36.5); MEAN CORPUSCULAR VOLUME 86.3 fl (80.0-96.0); PLATELET COUNT, AUTOMATED 261 10^3/uL (150-450); RED BLOOD COUNT 4.89 10^6/uL (4.00-5.40)
[2024-08-26 15:56] LABS: BLOOD UREA NITROGEN 19 MG/DL (9-23); CALCIUM LEVEL 9.5 MG/DL (8.3-10.6); CARBON DIOXIDE LEVEL 31 MMOL/L (20-31); CHLORIDE LEVEL 102 MMOL/L (98-107); CREATININE FOR GFR 0.65 MG/DL (0.55-1.30); GLOMERULAR FILTRATION RATE > 60.0 (>45); GLUCOSE, FASTING 225 MG/DL (74-106); POTASSIUM SERUM 4.4 MMOL/L (3.5-5.1); SODIUM LEVEL 136 MMOL/L (136-145)
== END ==
LOC: M PLALAB 12:01
PROVIDERS: ATTEND Physician Assistant Medical
DX: J44.9 Chronic obstructive pulmonary disease, unspecified (principal)

== ENCOUNTER 2024-12-04 23:30 | Inpatient (IN) | payer MEDICARE, OTHER ==
[~2024-12-04] VITALS: Ht 154.9 cm; Wt 124.2 kg
[2024-12-05 03:34] LABS: BASO # 0.1 10^3/uL (0.0-0.2); BASO % 0.2 % (0.0-1.0); EOS % 0.1 % (0.0-3.0); HEMOGLOBIN 13.9 g/dl (12.0-15.5); LYMPH # 1.2 10^3/uL (1.5-5.0); LYMPH % 4.1 % (24.0-44.0); MEAN CORPUSCULAR HEMOGLOBIN 27.9 pg (27.0-33.0); MEAN CORPUSCULAR HGB CONC 33.1 g/dl (32.0-36.5); MEAN CORPUSCULAR VOLUME 84.2 fl (80.0-96.0); MONO # 1.4 10^3/uL (0.0-0.8); MONO % 4.7 % (2.0-8.0); NEUTROPHILS # 26.2 10^3/uL (1.5-8.5); NEUTROPHILS % 88.4 % (36.0-66.0); PLATELET COUNT, AUTOMATED 237 10^3/uL (150-450); RED BLOOD COUNT 4.99 10^6/uL (4.00-5.40); WHITE BLOOD COUNT 29.7 10^3/uL (4.0-10.0)
[2024-12-05 03:35] LABS: KETONE, URINE AUTO RFX TRACE mg/dL (NEGATIVE); MUCUS, URINE RFX SMALL (NEGATIVE); RBC, URINE AUTO RFX 4 /HPF (0-3); SQUAM EPITHELIAL CELL UR AURFX 0 /HPF (0-6)
[2024-12-05 03:36] LABS: LEUKOCYTE ESTERASE UR AUTO RFX 2+ (NEGATIVE); NITRITE, URINE AUTO RFX POSITIVE (NEGATIVE); WBC, URINE AUTO RFX 78 /HPF (0-3)
[2024-12-05 03:46] LABS: ALKALINE PHOSPHATASE 104 U/L (35-104); ALT/SGPT 46 U/L (7.0-40); AST/SGOT 44 U/L (<34); BILIRUBIN,DIRECT 0.3 MG/DL (<0.4); BILIRUBIN,TOTAL 0.8 MG/DL (0.3-1.2); BLOOD UREA NITROGEN 20 MG/DL (9-23); CALCIUM LEVEL 8.5 MG/DL (8.3-10.6); CARBON DIOXIDE LEVEL 24 MMOL/L (20-31); CHLORIDE LEVEL 96 MMOL/L (98-107); CREATININE FOR GFR 0.89 MG/DL (0.55-1.30); GLOMERULAR FILTRATION RATE > 60.0 (>45); GLUCOSE, FASTING 470 MG/DL (74-106); POTASSIUM SERUM 4.1 MMOL/L (3.5-5.1); PROCALCITONIN 11.44 ng/ml; SODIUM LEVEL 136 MMOL/L (136-145); THYROID STIMULATING HORMONE 3.283 uIU/ML (0.55-4.78); TOTAL PROTEIN 6.8 G/DL (5.7-8.2)
[2024-12-05 03:54] LABS: VENOUS BASE EXCESS -1.6 (-2.0-2.0); VENOUS HCO3 22.9 MMOL/L (23.0-27.0); VENOUS O2 SATURATION 99.6 % (60.0-80.0); VENOUS PARTIAL PRESSURE CO2 38.5 mmHg (38.0-50.0); VENOUS PH 7.393 UNITS (7.330-7.430); VENOUS STANDARD HCO3 23.2 MMOL/L; VENOUS TOTAL CO2 24.1 MMOL/L (24.0-28.0)
[2024-12-05] MEDS ORDERED: ISOVUE-370 76% 100ML VIAL As Ordered ONE (04:33)
[2024-12-05] MEDS: PIPERACILLIN/TAZOBACTAM SOD 4.5 GM in DEXTROSE 5% (D5W) ADV/MINI-BAG 50 ML IV ONE (04:55)
[2024-12-05] MEDS: NS (Normal Saline) 0.9% 1,000 ML IV ONE ×2 (06:45→11:04)
[2024-12-05] MEDS ORDERED: IBUP1TAB7 PO (08:09)
[2024-12-05] MEDS ORDERED: HOME MED LIST COMPLETE! XX SCH (08:10)
[2024-12-05] MEDS ORDERED: GLUCAGON INJ 1MG VIAL SC PRN (08:15)
[2024-12-05] MEDS ORDERED: GLUCOSE 4 GM CHEW PO PRN (08:15)
[2024-12-05] MEDS ORDERED: LevoFLOXacin IV 750 MG in IV 1 EA IV SCH ×2 (08:15→10:45)
[2024-12-05] MEDS ORDERED: DEXTROSE 50% 50ML SYRINGE IV PRN (08:15)
[2024-12-05] MEDS: INSULIN LISPRO (NovoLOG) PER UNIT SC SCH ×2 (09:04→20:49)
[2024-12-05] MEDS: NS (Normal Saline) 0.9% 1,000 ML IV SCH (09:04)
[2024-12-05 09:52] LABS: HEMOGLOBIN A1c 12.1 % (4.0-6.0)
[2024-12-05] MEDS: PIPERACILLIN/TAZOBACTAM SOD 4.5 GM in DEXTROSE 5% (D5W) ADV/MINI-BAG 50 ML IV SCH (11:57)
[2024-12-05] MEDS: LEVEMIR (INSULIN DETEMIR) 1 UNITS/0.01ML SC SCH (11:58)
[2024-12-05] MEDS: ENOXAPARIN 40MG/0.4ML SYRINGE (J1650 PER 10MG) SC SCH (11:58)
[2024-12-05] MEDS: IPRATROPIUM 0.5MG/ALBUTEROL 2.5MG INH SOL UD 3ML (DUONEB) NEB SCH (12:47)
[2024-12-05 15:47] VITALS: BP 140/69; TEMP 97.9; O2SAT 94
[2024-12-05 20:02] VITALS: BP 120/64; TEMP 97.9; O2SAT 95
[2024-12-05] MEDS: VANCOMYCIN HCL 1,000 MG, VIAL MATE ADAPTER 1 EACH in NS 250 ML IV SCH (20:49)
[2024-12-06 03:26] VITALS: BP 127/91; TEMP 97.7; O2SAT 95
[2024-12-06] MEDS ORDERED: NYSTATIN 100,000 UNITS/GM TOPICAL PWD 15GM TOP PRN (07:45)
[2024-12-06 07:56] LABS: HEMATOCRIT 41.4 % (36.0-47.0); HEMOGLOBIN 13.4 g/dl (12.0-15.5); MEAN CORPUSCULAR HEMOGLOBIN 27.9 pg (27.0-33.0); MEAN CORPUSCULAR HGB CONC 32.4 g/dl (32.0-36.5); MEAN CORPUSCULAR VOLUME 86.1 fl (80.0-96.0); PLATELET COUNT, AUTOMATED 222 10^3/uL (150-450); RED BLOOD COUNT 4.81 10^6/uL (4.00-5.40); WHITE BLOOD COUNT 20.2 10^3/uL (4.0-10.0)
[2024-12-06 08:09] LABS: VANCOMYCIN LEVEL TROUGH 4.6 UG/ML (10.0-20.0)
[2024-12-06 08:14] LABS: ALBUMIN 2.6 G/DL (3.2-5.2); ALKALINE PHOSPHATASE 85 U/L (35-104); ALT/SGPT 31 U/L (7.0-40); AST/SGOT 33 U/L (<34); BILIRUBIN,TOTAL 0.4 MG/DL (0.3-1.2); BLOOD UREA NITROGEN 18 MG/DL (9-23); CALCIUM LEVEL 7.7 MG/DL (8.3-10.6); CARBON DIOXIDE LEVEL 28 MMOL/L (20-31); CHLORIDE LEVEL 102 MMOL/L (98-107); CREATININE FOR GFR 0.72 MG/DL (0.55-1.30); GLOMERULAR FILTRATION RATE > 60.0 (>45); GLUCOSE, FASTING 225 MG/DL (74-106); MAGNESIUM LEVEL 1.6 MG/DL (1.8-2.4); POTASSIUM SERUM 4.1 MMOL/L (3.5-5.1); SODIUM LEVEL 139 MMOL/L (136-145); TOTAL PROTEIN 6.3 G/DL (5.7-8.2)
[2024-12-06 08:20] VITALS: BP 119/73; TEMP 97.5; O2SAT 92
[2024-12-06] MEDS: OMEPRAZOLE 20MG CAP PO SCH (09:14)
[2024-12-06] MEDS: VANCOMYCIN HCL 1,000 MG, VIAL MATE ADAPTER 1 EACH in NS 250 ML IV ONE (10:41)
[2024-12-06 10:48] LABS: C REACTIVE PROTEIN QUANTITATIV 24.67 MG/DL (<1.0)
[2024-12-06] MEDS: MAG SULF 1GM/100ML (MAG RUN) 1 GM in IV 1 EA IV SCH (12:33)
[2024-12-06] MEDS: LEVEMIR (INSULIN DETEMIR) 1 UNITS/0.01ML SC ONE (13:25)
[2024-12-06 15:30] VITALS: BP 136/63; TEMP 97.7; O2SAT 96
[2024-12-06] MEDS ORDERED: MAGNESIUM SULFATE 1GM/100ML D5W BAG (10MG/ML) As Ordered ONE (15:55)
[2024-12-06] MEDS: IBUPROFEN 800 MG TAB PO ONE (18:12)
[2024-12-06 20:15] VITALS: BP 109/49; TEMP 97.5; O2SAT 94
[2024-12-07 03:46] VITALS: BP 139/57; TEMP 97.5; O2SAT 93
[2024-12-07 07:20] LABS: BASO % 0.4 % (0.0-1.0); EOS # 0.2 10^3/uL (0.0-0.5); HEMATOCRIT 37.8 % (36.0-47.0); HEMOGLOBIN 12.7 g/dl (12.0-15.5); LYMPH # 2.2 10^3/uL (1.5-5.0); LYMPH % 19.1 % (24.0-44.0); MEAN CORPUSCULAR HEMOGLOBIN 28.5 pg (27.0-33.0); MEAN CORPUSCULAR HGB CONC 33.6 g/dl (32.0-36.5); MEAN CORPUSCULAR VOLUME 84.9 fl (80.0-96.0); MONO # 0.6 10^3/uL (0.0-0.8); MONO % 4.8 % (2.0-8.0); NEUTROPHILS # 8.3 10^3/uL (1.5-8.5); PLATELET COUNT, AUTOMATED 238 10^3/uL (150-450); RED BLOOD COUNT 4.45 10^6/uL (4.00-5.40); WHITE BLOOD COUNT 11.4 10^3/uL (4.0-10.0)
[2024-12-07 07:36] LABS: VANCOMYCIN LEVEL TROUGH 11.4 UG/ML (10.0-20.0)
[2024-12-07 07:38] LABS: BLOOD UREA NITROGEN 16 MG/DL (9-23); C REACTIVE PROTEIN QUANTITATIV 17.14 MG/DL (<1.0); CALCIUM LEVEL 8.1 MG/DL (8.3-10.6); CARBON DIOXIDE LEVEL 26 MMOL/L (20-31); CHLORIDE LEVEL 104 MMOL/L (98-107); CREATININE FOR GFR 0.71 MG/DL (0.55-1.30); GLOMERULAR FILTRATION RATE > 60.0 (>45); GLUCOSE, FASTING 235 MG/DL (74-106); SODIUM LEVEL 139 MMOL/L (136-145)
[2024-12-07] MEDS: LEVEMIR (INSULIN DETEMIR) 1 UNITS/0.01ML SC SCH (08:45)
[2024-12-07] MEDS ORDERED: LEVEMIR (INSULIN DETEMIR) 1 UNITS/0.01ML SC SCH (09:00)
[2024-12-07] MEDS: SITagliptin 50 MG TAB (JANUVIA) PO SCH (10:05)
[2024-12-07] MEDS ORDERED: ZYVO1TAB PO (10:30)
[2024-12-07 12:00] VITALS: BP 138/99; TEMP 97.3; O2SAT 97
[2024-12-07] MEDS: metFORMIN (GLUCOPHAGE) 1000MG TABLET PO SCH (12:51)
[2024-12-07 19:20] VITALS: BP 138/73; TEMP 97.3; O2SAT 95
[2024-12-08 04:00] VITALS: BP 141/73; TEMP 97.3; O2SAT 88
[2024-12-08 06:03] LABS: BASO # 0.1 10^3/uL (0.0-0.2); BASO % 0.6 % (0.0-1.0); EOS # 0.2 10^3/uL (0.0-0.5); EOS % 2.7 % (0.0-3.0); HEMATOCRIT 39.9 % (36.0-47.0); HEMOGLOBIN 12.4 g/dl (12.0-15.5); LYMPH # 1.9 10^3/uL (1.5-5.0); LYMPH % 23.1 % (24.0-44.0); MEAN CORPUSCULAR HEMOGLOBIN 27.3 pg (27.0-33.0); MEAN CORPUSCULAR HGB CONC 31.1 g/dl (32.0-36.5); MEAN CORPUSCULAR VOLUME 87.9 fl (80.0-96.0); MONO # 0.5 10^3/uL (0.0-0.8); MONO % 6.2 % (2.0-8.0); NEUTROPHILS # 5.5 10^3/uL (1.5-8.5); NEUTROPHILS % 66.4 % (36.0-66.0); PLATELET COUNT, AUTOMATED 236 10^3/uL (150-450); RED BLOOD COUNT 4.54 10^6/uL (4.00-5.40); WHITE BLOOD COUNT 8.3 10^3/uL (4.0-10.0)
[2024-12-08 06:26] LABS: BLOOD UREA NITROGEN 16 MG/DL (9-23); C REACTIVE PROTEIN QUANTITATIV 8.13 MG/DL (<1.0); CARBON DIOXIDE LEVEL 27 MMOL/L (20-31); CHLORIDE LEVEL 105 MMOL/L (98-107); CREATININE FOR GFR 0.72 MG/DL (0.55-1.30); GLOMERULAR FILTRATION RATE > 60.0 (>45); GLUCOSE, FASTING 184 MG/DL (74-106); POTASSIUM SERUM 4.3 MMOL/L (3.5-5.1); SODIUM LEVEL 141 MMOL/L (136-145)
[2024-12-08] MEDS ORDERED: METF10004 PO (10:11)
[2024-12-08] MEDS ORDERED: SITA50TAB PO (10:11)
[2024-12-08] MEDS ORDERED: CEFD300CAP PO (10:11)
[2024-12-08] MEDS ORDERED: LANC30MI XX (11:42)
[2024-12-08] MEDS ORDERED: BLOOKIT21 XX (11:42)
[2024-12-08] MEDS ORDERED: GLUC1TES2 XX (11:42)
[2024-12-08] MEDS ORDERED: ALCOPAD25 TOP (11:42)
[2024-12-08 12:00] VITALS: BP 118/56; TEMP 97.2; O2SAT 96
== END 2024-12-08 13:45 | disposition home health service (06) | DRG 872 ==
LOC: M ED 23:30 → EDBD 23:30 → M ED INP 12-05 08:33 → M MSPAV 12-05 15:47
PROVIDERS: ADMIT Internal Medicine; ATTEND Internal Medicine
DX: A41.9 Sepsis, unspecified organism (principal); N39.0 Urinary tract infection, site not specified; I50.32 Chronic diastolic (congestive) heart failure; L03.115 Cellulitis of right lower limb; L97.929 Non-pressure chronic ulcer of unspecified part of left lower leg with unspecified severity; L97.919 Non-pressure chronic ulcer of unspecified part of right lower leg with unspecified severity; E87.20 Acidosis, unspecified; L03.116 Cellulitis of left lower limb; I11.0 Hypertensive heart disease with heart failure; J44.9 Chronic obstructive pulmonary disease, unspecified; G47.33 Obstructive sleep apnea (adult) (pediatric); K21.9 Gastro-esophageal reflux disease without esophagitis; E11.65 Type 2 diabetes mellitus with hyperglycemia; E83.42 Hypomagnesemia; Z91.199 Patient's noncompliance with other medical treatment and regimen due to unspecified reason; I87.2 Venous insufficiency (chronic) (peripheral); Z91.013 Allergy to seafood; Z88.8 Allergy status to other drugs, medicaments and biological substances; Z91.011 Allergy to milk products; E66.01 Morbid (severe) obesity due to excess calories; B96.20 Unspecified Escherichia coli [E. coli] as the cause of diseases classified elsewhere

== ENCOUNTER → 2024-12-30 | Outpatient (REF) | payer MEDICARE ==
[~2024-12-30] MED LIST changes: +ALCOPAD25 TOP; +BLOOKIT21 XX; +CEFD300CAP PO; +GLUC1TES2 XX; +IBUP1TAB7 PO; +LANC30MI XX; +SITA50TAB PO; +ZYVO1TAB PO
== END ==
LOC: M SFHCADAM 14:27
PROVIDERS: ATTEND Student in an Organized Health Care Education/Training Program
DX: T28.0XXA Burn of mouth and pharynx, initial encounter (principal)

== ENCOUNTER → 2025-01-31 | Outpatient (REF) | payer MEDICARE ==
[2025-01-31 13:56] LABS: BLOOD UREA NITROGEN 19 MG/DL (9-23); CALCIUM LEVEL 8.9 MG/DL (8.3-10.6); CARBON DIOXIDE LEVEL 28 MMOL/L (20-31); CHLORIDE LEVEL 102 MMOL/L (98-107); CREATININE FOR GFR 0.78 MG/DL (0.55-1.30); GLOMERULAR FILTRATION RATE > 60.0 (>45); GLUCOSE, FASTING 151 MG/DL (74-106); POTASSIUM SERUM 4.4 MMOL/L (3.5-5.1); SODIUM LEVEL 142 MMOL/L (136-145)
[2025-01-31 15:12] LABS: HEMOGLOBIN A1c 7.6 % (4.0-6.0)
== END ==
LOC: M SFHCADAM 10:20
PROVIDERS: ATTEND Student in an Organized Health Care Education/Training Program
DX: E11.65 Type 2 diabetes mellitus with hyperglycemia (principal)

== ENCOUNTER → 2025-06-10 | Outpatient (CLI) | payer MEDICARE | LOC: M WHC 12:47 | PROVIDERS: ATTEND Student in an Organized Health Care Education/Training Program | DX: Z12.31 Encounter for screening mammogram for malignant neoplasm of breast (principal); Z13.9 Encounter for screening, unspecified; I10 Essential (primary) hypertension; R92.313 Mammographic fatty tissue density, bilateral breasts; M85.851 Other specified disorders of bone density and structure, right thigh; M85.852 Other specified disorders of bone density and structure, left thigh ==

== ENCOUNTER → 2025-06-10 | Outpatient (REF) | payer MEDICARE ==
[2025-06-10 13:45] LABS: CALCIUM LEVEL 9.3 MG/DL (8.3-10.6); CARBON DIOXIDE LEVEL 31.0 MMOL/L (20-31); CHLORIDE LEVEL 105.0 MMOL/L (98-107); CHOLESTEROL LEVEL 182.0 MG/DL (<200); CHOLESTEROL RISK RATIO 5.46 (<5); CREATININE FOR GFR 0.79 MG/DL (0.55-1.30); GLOMERULAR FILTRATION RATE 81.4 (>45); LDL CHOLESTEROL 121.7 MG/DL (<100); NON-HDL-C 148.7 MG/DL; POTASSIUM SERUM 4.7 MMOL/L (3.5-5.1); SODIUM LEVEL 145.0 MMOL/L (136-145); TRIGLYCERIDES LEVEL 135.0 MG/DL (<150)
== END ==
LOC: M SFHCADAM 07:46
PROVIDERS: ATTEND Student in an Organized Health Care Education/Training Program
DX: Z13.220 Encounter for screening for lipoid disorders (principal); I10 Essential (primary) hypertension

== ENCOUNTER 2025-07-15 16:37 | Emergency (ER) | payer MEDICARE ==
[~2025-07-15] VITALS: Ht 156.2 cm; Wt 117.4 kg
[2025-07-15] MEDS: ALBUTEROL SULFATE 2.5 MG/0.5 ML INH CONCENTRATE NEB SOLN NEB ONE (19:36)
[2025-07-15 20:54] VITALS: BP 148/67; TEMP 96.5; O2SAT 92
== END 2025-07-15 21:12 | disposition home or self-care (01) ==
LOC: M ED 16:37
DX: R06.02 Shortness of breath (principal); X08.8XXA Exposure to other specified smoke, fire and flames, initial encounter; I45.10 Unspecified right bundle-branch block; E11.9 Type 2 diabetes mellitus without complications; F41.9 Anxiety disorder, unspecified; F32.A Depression, unspecified; I10 Essential (primary) hypertension; J45.909 Unspecified asthma, uncomplicated; J44.9 Chronic obstructive pulmonary disease, unspecified; Z91.011 Allergy to milk products; Z91.013 Allergy to seafood; Z88.8 Allergy status to other drugs, medicaments and biological substances; Z79.52 Long term (current) use of systemic steroids; Z79.899 Other long term (current) drug therapy; Z79.4 Long term (current) use of insulin; Z79.2 Long term (current) use of antibiotics; Y99.9 Unspecified external cause status

== ENCOUNTER → 2025-07-25 | Outpatient (REF) | payer MEDICARE | LOC: M SFHCPLAZ 21:30 | PROVIDERS: ATTEND Family Medicine | DX: Z53.9 Procedure and treatment not carried out, unspecified reason (principal) ==

== ENCOUNTER → 2025-07-29 | Outpatient (REF) | payer MEDICARE ==
[2025-07-29 15:01] LABS: BASO # 0.1 10^3/uL (0.0-0.2); BASO % 0.7 % (0.0-1.0); EOS # 0.3 10^3/uL (0.0-0.5); EOS % 3.8 % (0.0-3.0); LYMPH # 3.4 10^3/uL (1.5-5.0); LYMPH % 38.6 % (24.0-44.0); MONO # 0.6 10^3/uL (0.0-0.8); MONO % 7.1 % (2.0-8.0); NEUTROPHILS # 4.3 10^3/uL (1.5-8.5); NEUTROPHILS % 49.6 % (36.0-66.0); PLATELET COUNT, AUTOMATED 295 10^3/uL (150-450)
[2025-07-29 15:12] LABS: ERYTHROCYTE SEDIMENTATION RATE 56 mm/hr (0-30)
[2025-07-29 15:25] LABS: C REACTIVE PROTEIN QUANTITATIV 0.80 MG/DL (<1.0)
[2025-07-29 15:28] LABS: LDH LACTATE DEHYDROGENASE 182 U/L (120-246)
[2025-07-29 15:29] LABS: ALT/SGPT 16 U/L (7.0-40); AST/SGOT 21 U/L (<34); CALCIUM LEVEL 9.2 MG/DL (8.3-10.6); CARBON DIOXIDE LEVEL 32 MMOL/L (20-31); CHLORIDE LEVEL 103 MMOL/L (98-107); CREATININE FOR GFR 0.69 MG/DL (0.55-1.30); GLOMERULAR FILTRATION RATE > 90.0 (>45); POTASSIUM SERUM 4.6 MMOL/L (3.5-5.1); SODIUM LEVEL 143 MMOL/L (136-145)
[2025-07-29 15:37] LABS: TESTOSTERONE 18 NG/DL (14-76)
[2025-07-29 15:38] LABS: FREE T4 0.91 NG/DL (0.89-1.76)
[2025-07-29 19:04] LABS: ESTIMATED AVERAGE GLUCOSE 131.0 MG/DL (60-110)
[2025-07-29 19:21] LABS: CREATININE, URINE 76.2 MG/DL; MALB URINE SIEMENS 42.0 MG/L; MAU/CREAT RATIO 55.1 MCG/MG (0.0-30.0)
== END ==
LOC: M SFHCADAM 11:02
DX: N95.1 Menopausal and female climacteric states (principal); J43.9 Emphysema, unspecified; E11.9 Type 2 diabetes mellitus without complications; R63.4 Abnormal weight loss

== ENCOUNTER → 2025-08-25 | Outpatient (CLI) | payer MEDICARE | LOC: M PLAIMG 14:08 | PROVIDERS: ATTEND Physician Assistant | DX: I50.32 Chronic diastolic (congestive) heart failure (principal); I27.20 Pulmonary hypertension, unspecified ==

== ENCOUNTER → 2025-09-23 | Outpatient (REF) | payer MEDICARE | LOC: M SFHCPLAZ 20:31 | PROVIDERS: ATTEND Family Medicine | DX: Z53.9 Procedure and treatment not carried out, unspecified reason (principal) ==

== ENCOUNTER → 2025-10-10 | Outpatient (REF) | payer MEDICARE | LOC: M SFHCPLAZ 13:16 | PROVIDERS: ATTEND Physician Assistant Medical | DX: J06.9 Acute upper respiratory infection, unspecified (principal) ==

== ENCOUNTER → 2025-10-20 | Outpatient (REF) | payer MEDICARE ==
[2025-10-20 13:52] LABS: BASO # 0.0 10^3/uL (0.0-0.2); BASO % 0.4 % (0.0-1.0); EOS # 0.3 10^3/uL (0.0-0.5); EOS % 2.7 % (0.0-3.0); LYMPH # 3.8 10^3/uL (1.5-5.0); LYMPH % 40.4 % (24.0-44.0); MONO # 0.8 10^3/uL (0.0-0.8); MONO % 8.3 % (2.0-8.0); NEUTROPHILS # 4.5 10^3/uL (1.5-8.5); NEUTROPHILS % 47.8 % (36.0-66.0); PLATELET COUNT, AUTOMATED 325 10^3/uL (150-450)
[2025-10-20 14:03] LABS: ALT/SGPT 18 U/L (7.0-40); AST/SGOT 23 U/L (<34); CALCIUM LEVEL 9.6 MG/DL (8.3-10.6); CARBON DIOXIDE LEVEL 31 MMOL/L (20-31); CHLORIDE LEVEL 104 MMOL/L (98-107); CREATININE FOR GFR 0.64 MG/DL (0.55-1.30); GLOMERULAR FILTRATION RATE > 90.0 (>45); MAGNESIUM LEVEL 1.5 MG/DL (1.8-2.4); POTASSIUM SERUM 4.2 MMOL/L (3.5-5.1); SODIUM LEVEL 142 MMOL/L (136-145)
[2025-10-20 14:05] LABS: VITAMIN B12 LEVEL 763 PG/ML (211-911)
[2025-10-20 14:31] LABS: ESTIMATED AVERAGE GLUCOSE 128.0 MG/DL (60-110)
== END ==
LOC: M SFHCADAM 09:30
DX: I10 Essential (primary) hypertension (principal); E11.8 Type 2 diabetes mellitus with unspecified complications